=== PATIENT | female | born 1970 | race Caucasian/White ===

== ENCOUNTER 2020-01-19 12:16 | Outpatient (REF) | payer MEDICARE, MEDICAID, SELFPAY | END 2020-01-19 12:17 | disposition home or self-care (01) | LOC: HO.LAB 12:16 | PROVIDERS: Visit Provider Nurse Practitioner Family | DX: Z20.828 Contact with and (suspected) exposure to other viral communicable diseases (principal); R05 Cough | CPT/HCPCS: U0003 ==

== ENCOUNTER 2020-01-19 12:33 | Outpatient (REF) | payer MEDICARE, MEDICAID, SELFPAY ==
--- NOTE | 2020-01-19 12:42 | XR_ITS ---
EXAMINATION: XR CHEST CLINICAL INFORMATION: Cough COMPARISON: Previous chest x-ray most recent August 2018 TECHNIQUE: 2 views of the chest were obtained. FINDINGS: The cardiac and mediastinal contours are normal. The lungs are clear. There is no pleural effusion or pneumothorax. There are mild degenerative changes of the spine. There are osteophytes projecting off the distal clavicle probably related to old trauma. XR/XR chest 2V IMPRESSION: No evidence for acute disease in the chest.
== END 2020-01-19 12:34 | disposition home or self-care (01) ==
LOC: HO.XRAY 12:33
PROVIDERS: PCP Internal Medicine; Visit Provider Nurse Practitioner Family
DX: R05 Cough (principal)
CPT/HCPCS: 71046

== ENCOUNTER 2020-08-22 09:27 | Outpatient (REF) | payer MEDICARE, MEDICAID, SELFPAY | END 2020-08-22 09:28 | disposition home or self-care (01) | LOC: HO.LAB 09:27 | PROVIDERS: Visit Provider Nurse Practitioner Family | DX: Z20.822 Contact with and (suspected) exposure to COVID-19 (principal); J98.8 Other specified respiratory disorders | CPT/HCPCS: U0003; U0005 ==

== ENCOUNTER 2020-08-22 09:27 | Outpatient (REF) | payer MEDICARE, MEDICAID, SELFPAY ==
--- NOTE | ~2020-08-22 | XR_ITS ---
EXAMINATION: XR CHEST CLINICAL INFORMATION: Cough. Asthma COMPARISON: Chest 01/19/2020 TECHNIQUE: 2 views of the chest were obtained. FINDINGS: No significant abnormality is noted involving the heart, lungs, mediastinum, bony thorax or soft tissues. XR/XR chest 2V IMPRESSION: Unremarkable chest exam
== END 2020-08-22 09:28 | disposition home or self-care (01) ==
LOC: HO.HMGCX 09:27
PROVIDERS: PCP Internal Medicine; Visit Provider Nurse Practitioner Family
DX: J45.991 Cough variant asthma (principal)
CPT/HCPCS: 71046

== ENCOUNTER → 2020-11-17 10:05 | Outpatient (BNVA) | payer MEDICARE, MEDICAID, SELFPAY | PROVIDERS: PCP Internal Medicine; Visit Provider Internal Medicine | DX: J45.40 Moderate persistent asthma, uncomplicated (principal); R05 Cough; F17.200 Nicotine dependence, unspecified, uncomplicated | CPT/HCPCS: 99202 ==

== ENCOUNTER → 2021-06-15 09:59 | Outpatient (BNVA) | payer MEDICARE, MEDICAID, SELFPAY | PROVIDERS: PCP Internal Medicine; Referring Provider Internal Medicine; Visit Provider Internal Medicine | DX: I25.10 Atherosclerotic heart disease of native coronary artery without angina pectoris (principal); R07.2 Precordial pain; F17.210 Nicotine dependence, cigarettes, uncomplicated; I25.2 Old myocardial infarction; Z95.5 Presence of coronary angioplasty implant and graft | CPT/HCPCS: 93005; 99212 ==

== ENCOUNTER → 2021-07-11 07:52 | Outpatient (REF) | payer MEDICARE, MEDICAID, SELFPAY ==
--- NOTE | ~2021-07-11 | NM_ITS ---
Lexiscan Myocardial perfusion study Indication: Chest pain, assess for coronary disease and ischemia Technique: The patient was brought in for a Lexiscan perfusion study on 07/11/2021 and was injected 0.4 mg of Lexiscan intravenously. Within a minute of this injection 30 mCi of sestamibi was given intravenously. Images were obtained using the SPECT gamma camera interlaced with the gating device. Images were obtained in supine position. Resting perfusion study was performed on 07/27/2021. Patient was administered 30 mCi of sestamibi intravenously at rest. Images were then obtained in supine position. Total DLP 93mGy-cm. Images were processed with the software and compared side to side in short axis, horizontal long axis and vertical long axis views. Findings: Raw acquisition was reviewed. The stress perfusion study showed diminished tracer uptake along the distal part of inferior wall. There is also adjacent bowel/hepatic radiotracer uptake along the inferior wall. CT attenuation corrected images have globally reduced uptake and hence most likely all technical. The gated study shows normal LV systolic function with calculated LVEF of 59%. LV cavity is normal in size. The gated study shows normal wall thickening and contraction of segments. Resting study shows no significant perfusion defects. Gating at rest reveals normal wall motion with ejection fraction at 64%. The findings are consistent with reversible distal inferior defect but with normal contractility. TN/TN cardiolite stress test Impression: 1. Myocardial perfusion imaging study shows no clear ischemia. Reversible distal inferior defect but with normal contractility as well as adjacent GI tracer uptake, and hence suggestive of artifactual causes. Less likely true ischemia. 2. Gated LVEF is 59% during stress and 64% during rest. 3. Transient ischemic dilatation not present. EKG component of the test reported separately.
--- NOTE | 2021-07-11 07:55 | CA_ITS ---
Acquisition Time: 2021-07-11 08:09:39 Total Exercise Time: 00:02:00 Test Indications: CP Medications: SEE CHART Protocol: LEXISCAN Max HR: 112 BPM 65% of Pred: 172 BPM Max BP: 110/078 mmHG Max Work Load: 1.0 METS Pharmacological stress test with Lexiscan injection, while sitting and kicking her legs, with moderate shortness of breath, no chest discomfort, with isolated PVC, with normotensive response to injection, with nondiagnostic EKG for ischemia. In recovery she reported sob, nausea that was treated with Aminophylline 75mg IVP to reverse Lexiscan with resolution of symptoms. Nuclear images pending. Test reviewed with Dr Dawn. Referred By: Rafy Dawn Overread By: REYNOLD PATTEN
[2021-07-11 09:45] LABS: MANUAL DIFF FLAG NO
[2021-07-11 10:38] LABS: Basophils Absolute Auto 0.1 X10*3/uL (0.0-0.2); Basophils Percent Auto 0.8 % (0-2); Eosinophils Absolute Auto 0.2 X10*3/uL (0.0-0.4); Eosinophils Percent Auto 2.9 % (0-4); Hematocrit 45.1 % (37.0-47.0); Hemoglobin 14.6 g/dl (12.0-16.0); Imm Gran Abs Auto 0.08 X10*3/uL (0.00-0.03); Imm Gran Pct Auto 1.1 % (0.0-0.4); Lymphocytes Absolute Auto 2.3 X10*3/uL (1.2-4.9); Lymphocytes Percent Auto 32.6 % (20-40); Mean Corpuscular HGB Conc 32.4 g/dl (31.0-35.0); Mean Corpuscular Hemoglobin 30.9 pg (27.0-33.0); Mean Corpuscular Volume 95.6 fL (80.0-98.0); Mean Platelet Volume 10.5 fL (9.4-12.3); Monocytes Absolute Auto 0.6 X10*3/uL (0.1-1.2); Monocytes Percent Auto 8.1 % (2-11); Neutrophils Absolute Auto 3.9 x10*3/uL (2.0-8.3); Neutrophils Percent Auto 54.5 % (45-73); Platelet Count 220 X10*3/uL (160-400); Red Blood Count 4.72 X10*6/uL (4.20-5.50); Red Cell Distribution Width 13.3 % (11.0-16.0); White Blood Count 7.2 X10*3/uL (4.8-10.8)
[2021-07-11 11:01] LABS: Alanine Aminotransferase 17 U/L (0-31); Albumin Level 3.9 g/dL (3.5-5.0); Alkaline Phosphatase 60 U/L (39-117); Anion Gap 10 (12-20); Aspartate Amino Transferase 16 U/L (5-31); Bilirubin Direct < 0.2 mg/dL (0.0-0.5); Bilirubin Total 0.4 mg/dL (0.0-1.0); Blood Urea Nitrogen 13 mg/dL (9-16); Calcium 9.3 mg/dL (8.4-10.2); Carbon Dioxide 29 mmol/L (22-29); Chloride 107 mmol/L (96-108); Cholesterol 238 mg/dL; Estimated Glomerular Filt Rate > 60; Glucose Random 94 mg/dL (60-115); HDL Cholesterol 49 mg/dL; LDL Cholesterol Calculated 167 mg/dl; Potassium 4.6 mmol/L (3.3-5.1); Sodium 141 mmol/L (135-145); Total Protein 6.8 g/dL (6.5-8.0); Triglycerides 112 mg/dL
[2021-07-11 11:16] LABS: HBS Num1 2.72 mIU/mL (0-7.99); HBsAGNum1 0.21 S/CO (0.00-0.99); Hepatitis B Core Antibody Nonreactive (Nonreactive); Hepatitis B Surface Antigen Negative (Negative); ~Hepatitis B Surface Antibody NONREACTIVE (Nonreactive)
[2021-07-11 11:24] LABS: Thyroid Stimulating Hormone 1.94 uIU/mL (0.32-4.0)
[2021-07-13 14:40] LABS: HCV RNA PCR Qn 7.14 Log IU/mL (NOT DETECTED)
[2021-07-17 15:47] LABS: FIB-ALT 15 U/L (6-29); FIB-Alpha-2-Macroglobulin 194 mg/dL (106-279); FIB-Apolipoprotein A1 157 mg/dL (101-198); FIB-GGT 11 U/L (3-55); FIB-Haptoglobin 188 mg/dL (43-212); FIB-Total Bilirubin 0.3 mg/dL (0.2-1.2); Liver Fibrosis Score 0.06; Liver Fibrosis Stage F0; Nec Inflam Act Grade A0; Nec Inflam Act Score 0.04
[2021-07-20 05:52] LABS: HCV Genotype LiPA 2
== END ==
LOC: HO.CARD 07:52
PROVIDERS: Physician Assistant; PCP Internal Medicine; Visit Provider Internal Medicine
DX: R07.2 Precordial pain (principal); I25.10 Atherosclerotic heart disease of native coronary artery without angina pectoris; R74.01 Elevation of levels of liver transaminase levels; B19.20 Unspecified viral hepatitis C without hepatic coma; E78.5 Hyperlipidemia, unspecified
CPT/HCPCS: 36415; 78452; 80053; 80061; 81596; 82248; 84443; 85025; 86704; 86706; 87340; 87522; 87902; 93017; A9500; J0280; J2785

== ENCOUNTER → 2021-08-03 07:31 | Outpatient (BNVA) | payer MEDICARE, MEDICAID, SELFPAY | PROVIDERS: PCP Internal Medicine; Visit Provider Physician Assistant | DX: B19.20 Unspecified viral hepatitis C without hepatic coma (principal); J45.41 Moderate persistent asthma with (acute) exacerbation; J20.9 Acute bronchitis, unspecified | CPT/HCPCS: 99202; 99212 ==

== ENCOUNTER → 2021-08-17 07:26 | Outpatient (REF) | payer MEDICARE, MEDICAID, SELFPAY ==
--- NOTE | ~2021-08-17 | XR_ITS ---
EXAMINATION: XR CHEST CLINICAL INFORMATION: Bronchitis. COMPARISON: 08/22/[address] of 05/30/2017. TECHNIQUE: 2 views of the chest were obtained. FINDINGS: On lateral view only about the anterior portions of the T6 and T7 vertebrae, there is a density which may represent superimposition of shadows however a nodule cannot be excluded and CT of the chest may be of help in further evaluation. I do not see a large spur on AP view to correspond to this finding. Heart normal size. No evidence of pulmonary edema. No pneumothorax or pleural effusion. No confluent pneumonitis identified. XR/XR chest 2V IMPRESSION: Question lung density seen only on lateral view for which CT of the chest would be of help in further evaluation. This more likely represents a confluence of shadows.
--- NOTE | 2021-08-17 07:29 | CA_ITS ---
Transthoracic Echocardiogram Patient (Last, First, Middle): Lina Gann, Gender: Female Date of : 1970 Age: 51 Procedure Date: 08/17/2021 Procedure Type: Transthoracic Echocardiogram Location: OP Height: 160.02 cm Weight: 75.75 kg BSA: 1.79 m2 Heart Rate: 76 bpm BP: 95 / 69 mmHg [employer] Top Helper: SARKIS Referring MD: Rafy Dawn MD Forensic Psychologist: Greg Anand MD Symptoms: I25.10 - Atherosclerotic heart disease of [place] coronary... Study Quality: Adequate ECG Rhythm: Frequent ventricular premature beats Conclusions: - 1. Normal LV systolic function with impaired relaxation filling pattern 2. Normal cardiac valvular Dopplers 3. No gross pericardial effusion Findings Left Ventricle Normal left ventricular size, thickness, and systolic function. The visually estimated ejection fraction is between 55-60%. Spectral Doppler is indicative of an impaired relaxation filling pattern. E/E prime ratio is between 8 and 15 consistent with indeterminate filling pressures. Peak GLS is -18.5%, within normal limits. Right Ventricle Normal right ventricular cavity size and systolic function. Atria The left atrium is likely dilated. There is lipomatous hypertrophy of the interatrial septum. There is no evidence of interatrial shunt. The right atrium is normal in size. Aortic Valve Normal aortic valve structure and function. There is no aortic valve stenosis. There is no aortic valve regurgitation. Mitral Valve There is mild anterior and posterior mitral leaflet thickening. There is mild mitral annular calcification. There is trace mitral valve regurgitation. There is no mitral valve stenosis. Pulmonic Valve The pulmonic valve was not well visualized. Tricuspid Valve The tricuspid valve was not well visualized. Tricuspid regurgitation envelope is inadequate for calculation of right ventricular systolic pressure. Great Vessels All visible segments of the aorta are normal in size. The pulmonary artery was not well visualized. Venous The inferior vena cava is normal in size and collapses greater than 50% with inspiration. Pericardium/Pleural There is no evidence of pericardial effusion. Prior Study Comparison No significant change compared to prior study dated: 02/23/2014. Measurements 2D Linear Measurements IVSd: 0.81 0.6-0.9/0.6-1.0 cm LVIDd: 4.58 3.9-5.3/4.2-5.9 cm LVIDd Index: 2.56 2.4-3.2/2.2-3.1 cm/m2 LVIDs: 3.32 2.0-3.6 cm LVPWd: 0.64 0.7-1.1 cm LA Diam: 3.50 2.7-3.8/3.0-4.0 cm LAIDs Index: 1.96 1.5-2.3 cm/m2 LV Mass: 128.34 67-162/88-224 g LV Mass Index: 71.70 43-95/49-115 g/m2 LVOT Diam: 2.00 3.0+(-)1.3 cm 2D Systolic Function EF 4C: 50.60 >55% EF 2C: 51.80 >55% Mitral Valve MV Pk E: 0.74 MV PK A: 0.89 MV Decel Time: 131.00 E/A: 0.80 E'Lateral: 10.70 E'Medial: 7.18 E/E' Med: 10.30 E/E' Lat: 6.90 PHT: 38.00 MVA PHT: 5.79 Decel [place]: 5.64 Aortic Valve AoV Pk Seth: 1.20 AoV Mn Seth: 0.86 AoV VTI: 0.25 AoV Pk Grad: 6.00 Aov Mn Grad: 3.00 BILLY Cont.VTI: 2.49 LVOT LVOT Pk Seth: 0.86 LVOT Mn Seth: 0.67 LVOT VTI: 0.20 LVOT Pk Grad: 3.00 LVOT Mn Grad: 2.00 LVOT Diam: 2.00 LVOT Area: 3.14 Diastolic Function MV Pk E: 0.74 MV Pk A: 0.89 E/A: 0.80 E'Medial: 7.18 E/E' Med: 10.30 E' Laterial: 10.70 E/E' Lat: 6.90 Right Ventricle TAPSE (mm): 22.60 TVS' Seth: 9.60 Tricuspid Valve RA Press: 3.00 Great Vessels Aorta Sinus of Valsalva: 2.80 2.0-3.5 cm Ao Asc: 2.90 2.1-3.4 cm Pulmonary Veins Pulm Vein S/D 1.20 Pulmonary Valve PV Pk Seth: 0.83 Peak PV Grad: 3.00 Updated in Other Vendor System with Status of Final Greg Anand MD electronically signed on 08/17/2021 12:36:01 PM with status of Final
== END ==
LOC: HO.CARD 07:26
PROVIDERS: Absent Provider Internal Medicine; PCP Internal Medicine; Visit Provider Internal Medicine
DX: R07.2 Precordial pain (principal); I25.10 Atherosclerotic heart disease of native coronary artery without angina pectoris; F17.200 Nicotine dependence, unspecified, uncomplicated; J40 Bronchitis, not specified as acute or chronic; J45.41 Moderate persistent asthma with (acute) exacerbation
CPT/HCPCS: 71046; 93306; 93356; 99212

== ENCOUNTER → 2021-08-22 13:10 | Outpatient (BNVA) | payer MEDICARE, MEDICAID, SELFPAY | PROVIDERS: PCP Internal Medicine; Referring Provider Internal Medicine; Visit Provider Internal Medicine | DX: I25.10 Atherosclerotic heart disease of native coronary artery without angina pectoris (principal); F17.210 Nicotine dependence, cigarettes, uncomplicated | CPT/HCPCS: 99212 ==

== ENCOUNTER 2021-09-08 11:12 | Outpatient (REF) | payer MEDICARE, MEDICAID, SELFPAY ==
--- NOTE | ~2021-09-08 | US_ITS ---
EXAMINATION: US COMPLETE ABDOMEN WITH LIVER ELASTOGRAPHY CLINICAL INFORMATION: Hepatitis C COMPARISON: 05/07/2019 TECHNIQUE: Real-time imaging of the abdominal viscera. Noninvasive ultrasound liver fibrosis assessment is performed using Andrzej ElastPQ point quantification shear wave elastography (2D-SWE) with a C5-2 MHz transducer. Multiple elastography samples are obtained. FINDINGS: PANCREAS: Normal. The visualized pancreatic head and body are normal in appearance. The remainder of the pancreas is obscured from visualization by the overlying bowel gas. ABDOMINAL AORTA: The proximal, middle, and distal aortic segments are normal in caliber. INFERIOR VENA CAVA: Visualized portions are normal. LIVER: Normal. The liver demonstrates normal size, contour and echogenicity. No focal lesion or intrahepatic biliary duct dilatation. The right lobe measures 16.4 cm in length. The left lobe measures 10.1 cm in length. Portal flow is hepatopedal Shear wave liver elastography median stiffness is 1.34 m/s (reference: normal median stiffness is 1.3 m/s or less). IQR/median stiffness to assess sampling precision is 0.14 (reference: good quality data set is IQR/median stiffness of 0.15 or less). GALLBLADDER: Normal. The gallbladder is physiologically distended without evidence of stones, sludge, polyps, wall thickening or pericholecystic fluid. COMMON BILE DUCT: Normal in caliber measuring 0.32 cm in diameter. RIGHT KIDNEY: Normal. No hydronephrosis. No renal calculi or focal parenchymal lesions. The kidney measures 10.8 cm in maximum dimension. LEFT KIDNEY: Normal. No hydronephrosis. No renal calculi or focal parenchymal lesions. The kidney measures 11.3 cm in maximum dimension. SPLEEN: Normal. The spleen measures 10.8 cm in maximum dimension. FREE FLUID: None. US/US abdomen comp w elastography IMPRESSION: 1. No hepatic mass or anatomic evidence of cirrhosis 2. Liver elastography: In the absence of other known clinical signs, measurements rule out compensated advanced chronic liver disease. If there are known clinical signs, further testing may be needed for confirmation. REFERENCE: Society of Radiologists in Ultrasound Liver Stiffness Thresholds (2020): LIVER STIFFNESS THRESHOLDS: *Liver Stiffness equal or less than 1.3 m/s: High probability of being normal. *Liver Stiffness less than 1.7 m/s: In the absence of other known clinical signs, rules out compensated advanced chronic liver disease. *Liver Stiffness 1.7-2.1 m/s: Suggestive of compensated advanced chronic liver disease but need further test for confirmation. *Liver Stiffness over 2.1 m/s: Rules in compensated advanced chronic liver disease. *Liver Stiffness over 2.4 m/s: Suggestive of clinically significant portal hypertension. QUALITY OF DATA SET: *IQR/Median value equal or less than 0.15 implies a quality data set. *IQR/Median value over 0.15 implies a poor quality data set. SIGNIFICANT CHANGE FROM PRIOR EXAM: Significant change if liver stiffness measurement is 10% or greater from prior exam. OTHER CONSIDERATIONS: The stage of liver fibrosis may be overestimated in the setting of acute hepatitis, liver inflammation, elevated liver function tests, hepatic vascular congestion, obstructive cholestasis, non-fasting state, and infiltrative diseases such as amyloidosis and lymphoma. In some patients with NAFLD, the liver stiffness thresholds for compensated advanced chronic liver disease may be lower. In causes other than viral hepatitis and NAFLD, liver stiffness thresholds are not well established.
== END 2021-09-08 11:13 | disposition home or self-care (01) ==
LOC: HO.US 11:12
PROVIDERS: PCP Internal Medicine; Visit Provider Physician Assistant
DX: B19.20 Unspecified viral hepatitis C without hepatic coma (principal)
CPT/HCPCS: 76705; 76981

== ENCOUNTER → 2021-09-14 08:53 | Outpatient (BNVA) | payer MEDICARE, MEDICAID, SELFPAY | PROVIDERS: PCP Internal Medicine; Visit Provider Physician Assistant | DX: B19.20 Unspecified viral hepatitis C without hepatic coma (principal); Z23 Encounter for immunization | CPT/HCPCS: 90471; 90746; 99212; Q3014 ==

== ENCOUNTER → 2021-10-16 13:21 | Outpatient (BNVA) | payer MEDICARE, MEDICAID, SELFPAY | PROVIDERS: PCP Internal Medicine; Visit Provider Physician Assistant | DX: B19.20 Unspecified viral hepatitis C without hepatic coma (principal); Z23 Encounter for immunization | CPT/HCPCS: 90471; 90746 ==

== ENCOUNTER → 2021-10-17 08:41 | Outpatient (BNVA) | payer MEDICARE, MEDICAID, SELFPAY | PROVIDERS: PCP Internal Medicine; Visit Provider Physician Assistant | DX: B19.20 Unspecified viral hepatitis C without hepatic coma (principal); J45.41 Moderate persistent asthma with (acute) exacerbation; F17.200 Nicotine dependence, unspecified, uncomplicated; I25.10 Atherosclerotic heart disease of native coronary artery without angina pectoris | CPT/HCPCS: Q3014 ==

== ENCOUNTER 2021-11-13 11:12 | Outpatient (REF) | payer MEDICARE, MEDICAID, SELFPAY ==
--- NOTE | ~2021-11-13 | XR_ITS ---
EXAMINATION: XR CHEST CLINICAL INFORMATION: Cough. COMPARISON: August 17, 2021. TECHNIQUE: 2 views of the chest were obtained. FINDINGS: No significant abnormality is noted involving the heart, lungs, mediastinum, bony thorax or soft tissues. XR/XR chest 2V IMPRESSION: Unremarkable examination.
[2021-11-13 11:50] LABS: Binax Internal Control QC Valid; Binax Now Covid-19 Ag Negative (Negative)
== END 2021-11-13 11:13 | disposition home or self-care (01) ==
LOC: HO.HMGCX 11:12
PROVIDERS: PCP Internal Medicine; Visit Provider Physician Assistant
DX: Z20.822 Contact with and (suspected) exposure to COVID-19 (principal); J22 Unspecified acute lower respiratory infection; R05.9 Cough, unspecified
CPT/HCPCS: 71046; 87811; C9803

== ENCOUNTER 2021-12-06 10:32 | Outpatient (REF) | payer MEDICARE, MEDICAID, SELFPAY ==
[2021-12-06 14:15] LABS: MANUAL DIFF FLAG NO
[2021-12-06 14:21] LABS: Basophils Absolute Auto 0.1 X10*3/uL (0.0-0.2); Basophils Percent Auto 1.1 % (0-2); Eosinophils Absolute Auto 0.1 X10*3/uL (0.0-0.4); Eosinophils Percent Auto 0.8 % (0-4); Hematocrit 44.9 % (37.0-47.0); Hemoglobin 14.8 g/dl (12.0-16.0); Imm Gran Abs Auto 0.03 X10*3/uL (0.00-0.03); Imm Gran Pct Auto 0.4 % (0.0-0.4); Lymphocytes Absolute Auto 2.1 X10*3/uL (1.2-4.9); Lymphocytes Percent Auto 29.3 % (20-40); Mean Corpuscular Hemoglobin 30.8 pg (27.0-33.0); Mean Corpuscular Volume 93.3 fL (80.0-98.0); Mean Platelet Volume 10.6 fL (9.4-12.3); Monocytes Absolute Auto 0.5 X10*3/uL (0.1-1.2); Monocytes Percent Auto 6.6 % (2-11); Neutrophils Absolute Auto 4.5 x10*3/uL (2.0-8.3); Neutrophils Percent Auto 61.8 % (45-73); Platelet Count 218 X10*3/uL (160-400); Red Blood Count 4.81 X10*6/uL (4.20-5.50); White Blood Count 7.3 X10*3/uL (4.8-10.8)
[2021-12-06 14:56] LABS: Alanine Aminotransferase 14 U/L (0-31); Albumin Level 4.3 g/dL (3.5-5.0); Alkaline Phosphatase 78 U/L (39-117); Anion Gap 15 (12-20); Aspartate Amino Transferase 17 U/L (5-31); Bilirubin Direct 0.2 mg/dL (0.0-0.5); Bilirubin Total 0.4 mg/dL (0.0-1.0); Blood Urea Nitrogen 12 mg/dL (9-16); Calcium 9.2 mg/dL (8.4-10.2); Carbon Dioxide 25 mmol/L (22-29); Chloride 105 mmol/L (96-108); Cholesterol 177 mg/dL; Estimated Glomerular Filt Rate > 60; Glucose Random 109 mg/dL (60-115); HDL Cholesterol 44 mg/dL; LDL Cholesterol Calculated 115 mg/dl; Potassium 4.5 mmol/L (3.3-5.1); Sodium 140 mmol/L (135-145); Total Protein 7.5 g/dL (6.5-8.0); Triglycerides 90 mg/dL
[2021-12-08 18:26] LABS: HCV Log PCR <1.18 NOT DETECTED Log IU/mL (NOT DETECTED); HepC Viral Load <15 NOT DETECTED IU/mL (NOT DETECTED)
== END 2021-12-06 10:33 | disposition home or self-care (01) ==
LOC: HO.HMGCLDS 10:32
PROVIDERS: Absent Provider Physician Assistant; PCP Internal Medicine; Visit Provider Internal Medicine
DX: B19.20 Unspecified viral hepatitis C without hepatic coma (principal); I25.10 Atherosclerotic heart disease of native coronary artery without angina pectoris; E78.5 Hyperlipidemia, unspecified
CPT/HCPCS: 36415; 80048; 80061; 80076; 85025; 87522

== ENCOUNTER 2021-12-09 08:58 | Outpatient (REF) | payer MEDICARE, MEDICAID, SELFPAY ==
--- NOTE | ~2021-12-09 | XR_ITS ---
EXAMINATION: XR SHOULDER, LEFT CLINICAL INFORMATION: Pain COMPARISON: Previous x-ray July 2012 TECHNIQUE: AP external rotation, Grashey, scapular Y, and axillary views of the left shoulder. FINDINGS: The bones and soft tissues are normal. No fracture. Glenohumeral and acromioclavicular alignment is anatomic with normal joint space. No abnormal soft tissue calcifications. XR/XR shoulder LT min 2V IMPRESSION: Normal left shoulder.
== END 2021-12-09 08:59 | disposition home or self-care (01) ==
LOC: HO.XRAY 08:58
PROVIDERS: PCP Internal Medicine; Visit Provider Internal Medicine
DX: M25.512 Pain in left shoulder (principal); Z91.81 History of falling
CPT/HCPCS: 73030

== ENCOUNTER → 2021-12-11 10:03 | Outpatient (BNVA) | payer MEDICARE, MEDICAID, SELFPAY | PROVIDERS: PCP Internal Medicine; Visit Provider Physician Assistant | DX: Z13.89 Encounter for screening for other disorder (principal) | CPT/HCPCS: Q3014 ==

== ENCOUNTER 2021-12-19 10:49 | Outpatient (REF) | payer MEDICARE, MEDICAID, SELFPAY ==
--- NOTE | ~2021-12-19 | CT_ITS ---
EXAMINATION: CT HEAD WITHOUT CONTRAST CLINICAL INFORMATION: Headaches. COMPARISON: None. TECHNIQUE: Contiguous axial imaging was performed from the skullbase to vertex without intravenous administration of contrast. This CT examination was performed using dose optimization techniques as appropriate, variously including the following: *Automated exposure control *Adjustment of mA and/or kV according to patient size (this includes techniques or standardized protocols for targeted exams where dose is matched to indication/reason for exam; i.e. extremities or head) *Use of iterative reconstruction technique DLP: 740 mGy-cm. FINDINGS: There is no evidence of acute intracranial hemorrhage or territorial infarction. No abnormal mass effect or midline shift is seen. [place] to white matter differentiation is well preserved. No extra-axial fluid collections are identified. The ventricles are normal in size. There is no abnormal attenuation within the brain parenchyma. The osseous structures and soft tissues are normal. The mastoid air cells and visualized portions of the paranasal sinuses are well aerated. CT/CT head/brain wo IV con IMPRESSION: No acute intracranial pathology.
== END 2021-12-19 10:50 | disposition home or self-care (01) ==
LOC: HO.CT 10:49
PROVIDERS: PCP Internal Medicine; Visit Provider Internal Medicine
DX: R51.9 Headache, unspecified (principal); S09.90XA Unspecified injury of head, initial encounter; Z91.81 History of falling
CPT/HCPCS: 70450

== ENCOUNTER 2022-01-03 07:10 | Outpatient (REF) | payer MEDICARE, MEDICAID, SELFPAY ==
[2022-01-03 07:19] LABS: MANUAL DIFF FLAG NO
[2022-01-03 07:29] LABS: Basophils Absolute Auto 0.1 X10*3/uL (0.0-0.2); Eosinophils Absolute Auto 0.3 X10*3/uL (0.0-0.4); Eosinophils Percent Auto 4.2 % (0-4); Hematocrit 44.2 % (37.0-47.0); Hemoglobin 14.3 g/dl (12.0-16.0); Imm Gran Abs Auto 0.02 X10*3/uL (0.00-0.03); Imm Gran Pct Auto 0.3 % (0.0-0.4); Lymphocytes Absolute Auto 3.1 X10*3/uL (1.2-4.9); Lymphocytes Percent Auto 41.2 % (20-40); Mean Corpuscular HGB Conc 32.4 g/dl (31.0-35.0); Mean Corpuscular Hemoglobin 30.6 pg (27.0-33.0); Mean Corpuscular Volume 94.6 fL (80.0-98.0); Mean Platelet Volume 10.4 fL (9.4-12.3); Monocytes Absolute Auto 0.8 X10*3/uL (0.1-1.2); Monocytes Percent Auto 10.9 % (2-11); Neutrophils Absolute Auto 3.2 x10*3/uL (2.0-8.3); Neutrophils Percent Auto 42.4 % (45-73); Platelet Count 199 X10*3/uL (160-400); Red Blood Count 4.67 X10*6/uL (4.20-5.50); Red Cell Distribution Width 13.2 % (11.0-16.0); White Blood Count 7.6 X10*3/uL (4.8-10.8)
[2022-01-03 07:48] LABS: Anion Gap 14 (12-20); Blood Urea Nitrogen 11 mg/dL (9-16); Calcium 9.1 mg/dL (8.4-10.2); Carbon Dioxide 26 mmol/L (22-29); Chloride 104 mmol/L (96-108); Estimated Glomerular Filt Rate > 60; Glucose Random 83 mg/dL (60-115); Potassium 4.4 mmol/L (3.3-5.1); Sodium 140 mmol/L (135-145)
[2022-01-05 17:47] LABS: HCV Log PCR <1.18 NOT DETECTED Log IU/mL (NOT DETECTED); HepC Viral Load <15 NOT DETECTED IU/mL (NOT DETECTED)
== END 2022-01-03 07:11 | disposition home or self-care (01) ==
LOC: HO.LAB 07:10
PROVIDERS: PCP Internal Medicine; Visit Provider Physician Assistant
DX: B19.20 Unspecified viral hepatitis C without hepatic coma (principal)
CPT/HCPCS: 36415; 80048; 85025; 87522

== ENCOUNTER → 2022-01-08 09:52 | Outpatient (BNVA) | payer MEDICARE, MEDICAID, SELFPAY | PROVIDERS: PCP Internal Medicine; Visit Provider Physician Assistant | DX: B18.2 Chronic viral hepatitis C (principal); Z86.010 Personal history of colon polyps | CPT/HCPCS: 99212 ==

== ENCOUNTER → 2022-01-23 15:04 | Outpatient (BNVA) | payer MEDICARE, MEDICAID, SELFPAY | PROVIDERS: PCP Internal Medicine; Visit Provider Internal Medicine | DX: J44.9 Chronic obstructive pulmonary disease, unspecified (principal); F17.210 Nicotine dependence, cigarettes, uncomplicated | CPT/HCPCS: 99212 ==

== ENCOUNTER 2022-03-26 12:28 | Outpatient (REF) | payer MEDICARE, MEDICAID, SELFPAY ==
[2022-03-26 12:46] LABS: MANUAL DIFF FLAG NO
[2022-03-26 13:00] LABS: Basophils Absolute Auto 0.1 X10*3/uL (0.0-0.2); Basophils Percent Auto 0.8 % (0-2); Eosinophils Absolute Auto 0.1 X10*3/uL (0.0-0.4); Eosinophils Percent Auto 1.5 % (0-4); Hematocrit 43.1 % (37.0-47.0); Hemoglobin 14.5 g/dl (12.0-16.0); Imm Gran Abs Auto 0.02 X10*3/uL (0.00-0.03); Imm Gran Pct Auto 0.2 % (0.0-0.4); Lymphocytes Absolute Auto 3.4 X10*3/uL (1.2-4.9); Lymphocytes Percent Auto 35.6 % (20-40); Mean Corpuscular HGB Conc 33.6 g/dl (31.0-35.0); Mean Corpuscular Hemoglobin 30.9 pg (27.0-33.0); Mean Corpuscular Volume 91.9 fL (80.0-98.0); Mean Platelet Volume 9.9 fL (9.4-12.3); Monocytes Absolute Auto 0.6 X10*3/uL (0.1-1.2); Monocytes Percent Auto 6.3 % (2-11); Neutrophils Absolute Auto 5.3 x10*3/uL (2.0-8.3); Neutrophils Percent Auto 55.6 % (45-73); Platelet Count 237 X10*3/uL (160-400); Red Blood Count 4.69 X10*6/uL (4.20-5.50); Red Cell Distribution Width 13.3 % (11.0-16.0); White Blood Count 9.5 X10*3/uL (4.8-10.8)
[2022-03-26 13:21] LABS: Alanine Aminotransferase 17 U/L (0-31); Albumin Level 4.4 g/dL (3.5-5.0); Alkaline Phosphatase 62 U/L (39-117); Anion Gap 14 (12-20); Aspartate Amino Transferase 16 U/L (5-31); Bilirubin Total 0.5 mg/dL (0.0-1.0); Blood Urea Nitrogen 12 mg/dL (9-16); Calcium 9.3 mg/dL (8.4-10.2); Carbon Dioxide 28 mmol/L (22-29); Chloride 104 mmol/L (96-108); Cholesterol 168 mg/dL; Estimated Glomerular Filt Rate > 60; Glucose Fasting 89 mg/dL (60-99); Glucose Random 89 mg/dL (60-115); HDL Cholesterol 45 mg/dL; LDL Cholesterol Calculated 109 mg/dl; Potassium 4.4 mmol/L (3.3-5.1); Sodium 142 mmol/L (135-145); Total Protein 7.1 g/dL (6.5-8.0); Triglycerides 74 mg/dL
[2022-03-27 20:58] LABS: HCV RNA PCR Qn <1.18 NOT DETECTED Log IU/mL (NOT DETECTED); HCV RNA PCR Qn <15 NOT DETECTED IU/mL (NOT DETECTED)
== END 2022-03-26 12:29 | disposition home or self-care (01) ==
LOC: HO.LAB 12:28
PROVIDERS: PCP Internal Medicine; Visit Provider Physician Assistant
DX: J44.9 Chronic obstructive pulmonary disease, unspecified (principal); B19.20 Unspecified viral hepatitis C without hepatic coma; F17.210 Nicotine dependence, cigarettes, uncomplicated; R74.01 Elevation of levels of liver transaminase levels; E78.00 Pure hypercholesterolemia, unspecified; Z79.899 Other long term (current) drug therapy
CPT/HCPCS: 36415; 80048; 80053; 80061; 85025; 87522; 87902; 99212

== ENCOUNTER → 2022-04-02 10:06 | Outpatient (BNVA) | payer MEDICARE, MEDICAID, SELFPAY | PROVIDERS: PCP Internal Medicine; Referring Provider Internal Medicine; Visit Provider Physician Assistant | DX: B19.20 Unspecified viral hepatitis C without hepatic coma (principal); Z86.010 Personal history of colon polyps | CPT/HCPCS: 99212 ==

== ENCOUNTER → 2022-05-30 08:32 | Outpatient (BNVA) | payer MEDICARE, MEDICAID, SELFPAY | PROVIDERS: PCP Internal Medicine; Visit Provider Physician Assistant | DX: Z23 Encounter for immunization (principal) | CPT/HCPCS: 90471; 90746; 99211 ==

== ENCOUNTER → 2022-07-31 13:18 | Outpatient (BNVA) | payer MEDICARE, MEDICAID, SELFPAY | PROVIDERS: PCP Internal Medicine; Visit Provider Orthopaedic Surgery | DX: M18.12 Unilateral primary osteoarthritis of first carpometacarpal joint, left hand (principal) | CPT/HCPCS: 20600; 99202; J1020 ==

== ENCOUNTER 2022-10-05 16:39 | Outpatient (AMB) | payer MEDICARE, MEDICAID, SELFPAY ==
[2022-10-05 16:42] VITALS: BP 120/78; PULSE 86; O2SAT 96; BMI 29.2
--- NOTE | 2022-10-05 16:42 | A.OFFPC_ITS ---
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 Accompanied by: Self / Same As Patient Allergies erythromycin base Allergy (Unknown, Verified 10/07/22 05:19) Nausea and Vomiting, Stomach Upset isosorbide Allergy (Unknown, Verified 10/07/22 05:19) Headaches, stomach upset Medication List - Last Reconciled 10/07/22 by Nathan Lang MD aspirin (Adult Low Dose Aspirin) 81 mg PO DAILY atorvastatin 80 mg PO BEDTIME 90 days clonazepam 1 mg PO BID cyclobenzaprine 10 mg PO TID PRN 10 days fluoxetine 40 mg PO DAILY levalbuterol tartrate 45 mcg/actuation 1 puff inhalation Q4-6H PRN 30 days lurasidone (Latuda) 60 mg PO BEDTIME meloxicam 15 mg PO DAILY PRN 30 days nitroglycerin 0.4 mg sublingual Q5M ondansetron HCl 4 mg PO Q8H PRN 10 days pantoprazole 40 mg PO DAILY 30 days Symbicort 160-4.5 mcg/actuation (budesonide-formoterol) 2 puffs PO BID NS valacyclovir 2,000 mg (2 x 1 gram) PO BID 1 day varenicline 1 mg PO BID 28 days varenicline 0.5 mg PO BID 3 days varenicline (Chantix Continuing Month Box) 1 mg PO BID Tobacco use date assessed: 10/05/22 Dental Screening Dental Screen Date: 10/05/22 Did you have a dental visit in the last 12 months?: Yes Did you have a dental problem in the last 6 months where you did not have access to dental care?: No Was dental information given to patient?: Patient has dentist HPI 4 month f/u HPI Details Patient comes in today for her follow up visit States that she continues to experience recurrent nausea and vomiting States that she tried to get in to see GI for further evaluation of her abdominal symptoms but could not get in until a couple of weeks from now - is scheduled to be seen by GI on 10/22/2022 Was recently called in a prescription for the oral disintegrating formulation of Ondansetron, which she states she cannot tolerate - states that the sensation of the tablet on her tongue tends to trigger her nausea and make her throw up immediately Would like to have a prescription for her previous regular formulation of On dansetron and sent in to her pharmacy States that due to her recurrent nausea and vomiting, she has not really been taking any of her other medications as she tends to throw them all up as soon as she takes them Is hoping that going back on her Ondansetron will help her be able to tolerate and keep her medications down better She denies any headaches or dizziness Denies any chest pains, no increased shortness of breath but she continues to experience or nausea chest congestion and recurrent coughing Add that she is also experiencing frequent epigastric pain and discomfort in addition to her recurrent nausea and vomiting No change in bowel habits noted and states that she has not noticed any blood in her stool lately Also needs a couple of her Rx refilled PFSH Medical History Anxiety Asthma Asthma-COPD overlap syndrome Bipolar affective disorder, currently depressed, moderate Fibromyalgia Lumbar degenerative disc disease Obesity (BMI 30-39.9) Overweight (BMI 25.0-29.9) Pure hypercholesterolemia Smoker Surgical History History of cardiac catheterization Family History Mother Liver cancer Father No problems noted. Other Mental health problem Substance abuse Social History Housing: Apartment Alcohol intake: former Patient Tobacco Use Status: Current everyday Tobacco user Cigarettes Per Day: 2 e-Cigarette/Vaping Use: Never Used Second Hand Smoke Exposure: Yes service: No Current occupational status: employed Cognitive needs: No Hearing needs: No Vision needs: No Questionnaire PHQ-9 Over the last 2 weeks, how often have you been bothered by any of the following problems? 1. Little interest or pleasure in doing things: several days 2. Feeling down, depressed, or hopeless: several days 3. Trouble falling or staying asleep, or sleeping too much: several days 4. Feeling tired or having little energy: several days 5. Poor appetite or overeating: several days 6. Feeling bad about yourself - or that you are a failure or have let yourself or your family down: not at all 7. Trouble concentrating on things, such as reading the newspaper or watching television: not at all 8. Moving or speaking so slowly that other people could have noticed. Or the opposite - being so fidgety or restless that you have been moving around a lot more than usual: not at all 9. Thoughts that you would be better off or of hurting yourself in some way: not at all Total score: 5 Depression Screening Interpretation: Positive Depression Screening Follow-up: Existing condition and In treatment 74694 - PHQ-9 Billing: Yes Source: Developed by Drs. Sarkis Peterson, Leidy Padilla, Ayo White and colleagues, with an educational flip from [employer]. Thrive Questionnaire Date Thrive assessed: 10/05/22 I am a: Patient What is your living situation today?: I have a steady place to live Within the past 12 months, did the food you bought not last and you didn't have the money to get more?: Never true Within the past 12 months, did you worry whether your food would run out before you got money to buy more?: Never true Do you have trouble paying for medicines?: No Do you have trouble getting transportation to medical appointments?: No Do you have trouble paying your heating and electricity bill?: No Do you have trouble taking care of your child, family member or friend?: No Do you have trouble with day-to-day activities such as bathing, preparing meals, shopping, managing finances, etc.?: No Are you currently unemployed and looking for a job?: No Are you interested in more education?: No Please select the resources that you would like help with: None Currently or been in a relationship where the following occur: no concerns reported AUDIT C Alcohol Use Questionnaire (AUDIT-C) 1. How often do you have a drink containing alcohol?: Never 3. How often do you have six or more drinks on one occasion?: Never Total Score: 0 Score Reviewed/Action Taken: Yes JUAN-7 AMB Questionnaire JUAN-7 Date JUAN - 7 assessed: 10/05/22 Feeling nervous, anxious, or on edge: 1 = Several days Not being able to stop or control worryin = Several days Worrying too much about different things: 1 = Several days Trouble relaxin = Several days Being so restless that it is hard to sit still: 1 = Several days Becoming easily annoyed or irritable: 0 = Not at all Feeling afraid as if something awful might happen: 0 = Not at all Total JUAN-7 score (0-4 normal; 5-9 mild; 10-14 moderate; 15-21 severe): 5 Source: Developed by Drs. Sarkis Peterson, Leidy Padilla, Ayo White and colleagues, with an educational flip from [employer]. Review of Systems Const Reports fatigue, Denies fever(s) and Denies headache(s) ENT Denies dysphagia, Denies dizziness, Denies otalgia, Denies headache(s), Reports neck pain (especially over the left side), Denies odynophagia and Denies sore throat Card Denies chest pain, Denies palpitations and Denies dyspnea Resp Reports chest congestion (on and off), Reports cough (recurrent - mostly due to her smoking), Denies dyspnea and Denies wheezing GI Reports abdominal pain (epigastric, on and off), Denies hematochezia, Denies constipation, Denies dysphagia, Denies heartburn, Denies diarrhea, Reports nausea (frequent), Denies odynophagia and Reports vomiting (on and off) Denies difficulty voiding, Denies nocturia and Denies dysuria Musc Reports back pain, Reports arthralgias (left shoulder; increased pain of both thumbs lately) and Reports neck pain (especially over the left side) Neuro Denies dizziness and Denies headache(s) Psych Reports anxiety and Reports depression Endo Reports fatigue and Denies palpitations Aller/Immun Denies wheezing Physical exam (Primary Care) Vital Signs: Last Vital Signs Pulse 86 10/05/22 16:42 BP 120/78 10/05/22 16:42 Pulse Ox 96 10/05/22 16:42 Oxygen Delivery Method Room Air 10/05/22 16:42 BMI result Body Mass Index 29.2 Tobacco/Smoking Status: Tobacco use Status Tobacco use date assessed 10/05/22 10/05/22 16:46 Patient Tobacco Use Status Current everyday Tobacco 10/05/22 16:46 e-Cigarette/Vaping Use Never Used 10/05/22 16:46 PHQ-9: PHQ-9 Score PHQ-9: Total score 5 10/07/22 05:21 Depression Screening Interpretation: Positive Depression Screening Follow-up: Existing condition and In treatment Thrive Assessment: Date of Thrive Assessment Date Thrive assessed 10/05/22 10/05/22 16:46 Currently or been in a relationship where the following occur: no concerns reported Assessment and Plan Assessment & Plan (1) Nausea and vomiting: Code(s): R11.2 - Nausea with vomiting, unspecified Qualifiers: Vomiting type: unspecified Qualified Code(s): R11.2 - Nausea with vomiting, unspecified Plan: Advised patient that her recurrent nausea/vomiting is likely multifactorial but suspect that she may also have some degree of gastritis She should be on Pantoprazole 40 mg QD but she has reportedly not been able to keep any of her medications down for a few weeks now as she reportedly tends to throw up all of her meds as soon as she takes them - she tends to take ALL of her meds at the same time at night and have advised her that this may also be a reason that she is not able to tolerate her Rx and that taking them separately a few at a time may allow her to tolerate her Rx better Per her request, will start her for now on the regular formulation of Ondansetron 4 mg every 8 hours as needed - have instructed patient to try taking this alone with sips of water and wait at least 20-30 minutes before taking any of her other medications and this may allow her to keep her medications down and not throw them up immediately She is also scheduled to see GI in a couple of weeks on 10/22/2022 for further evaluation and management (2) Asthma-COPD overlap syndrome: Comment: Patient does have symptoms of cough wheezing and shortness of breath. Clinically I suspect that she has combination of bronchial asthma and COPD. She has not been able to go for pulmonary function test. TX : Instead of Advair she was provided Symbicort 160-4.52 puffs b.i.d. She was using only 2 puffs in the morning. I have advised her to go back to 2 puffs b.i.d.. And continue to use levalbuterol-45 2 puffs Q 6 hours p.r.n.. Will recheck her in 3 months. Code(s): J44.9 - Chronic obstructive pulmonary disease, unspecified Plan: Continue Symbicort 160-4.5 mcg 2 inhalations BID - patient often reportedly only uses this once a day in AM Continue Levalbuterol inhaler 2 inhalations Q 6 hours PRN Reminded again that quitting smoking can help a lot with her respiratory sympt oms Follow up with pulmonary as scheduled (3) Arthritis of carpometacarpal (CMC) joint of left thumb: Code(s): M18.12 - Unilateral primary osteoarthritis of first carpometacarpal joint, left hand Plan: She is scheduled for a cortisone injection into her thumb joint by orthopedics in a couple of weeks Follow-up with orthopedics as scheduled (4) Lumbar degenerative disc disease: Code(s): M51.36 - Other intervertebral disc degeneration, lumbar region Plan: Lumbar spine MRI done back in 2017 revealed multilevel facet arthritis and disc degeneration Reinforced activity and weight lifting restrictions Continue Cyclobenzaprine 10 mg TID PRN Follow up with [facility] as scheduled (5) Atherosclerotic cardiovascular disease: Comment: S/P stenting (MUKESH) of LAD in April 2012 Code(s): I25.10 - Atherosclerotic heart disease of [place] coronary artery without angina pectoris Plan: Continue Aspirin 81 mg QD - will need lifelong antiplatelet Tx with ASA Continue NTG 0.4 mg SL PRN for chest pains Reinforced low cholesterol diet Follow up with cardiology as scheduled (6) Pure hypercholesterolemia: Code(s): E78.00 - Pure hypercholesterolemia, unspecified Plan: Reinforced low cholesterol diet Has not had any follow-up labs done to recheck her cholesterol levels in a while now - were within acceptable range when they were last checked back in February 2022 Continue Atorvastatin 80 mg QD Will recheck her labs in 4 months for follow-up (7) Hepatitis C: Code(s): B19.20 - Unspecified viral hepatitis C without hepatic coma Qualifiers: Viral hepatitis chronicity: chronic Hepatic coma status: without hepatic coma Qualified Code(s): B18.2 - Chronic viral hepatitis C Plan: S/P treatment with Mavyret 100-40 mg 3 tablets QD Her hepatitis C viral load came back negative /undetectable when last checked last year (2021) Follow up with GI as scheduled (8) Anxiety: Code(s): F41.9 - Anxiety disorder, unspecified Plan: Continue Clonazepam 1 mg BID PRN Follow up with psychiatry as scheduled (9) Bipolar affective disorder, currently depressed, moderate: Code(s): F31.32 - Bipolar disorder, current episode depressed, moderate Plan: Continue Latuda 60 mg Q HS and Fluoxetine 40 mg QD Follow up with psychiatry as scheduled (10) Smoker: Comment: Has been a long-time smoker. She was down to 2 cigarettes a day, but lately has gone back to half pack a day, because of her increased anxiety. SHE IS A KNOWN CASE OF BIPOLAR DISORDER AND TENDS TO HAVE EPISODES OF INCREASED ANXIETY. Counseled that she should try to quit completely. Hopefully Chantix would help. Code(s): F17.200 - Nicotine dependence, unspecified, uncomplicated Plan: Counseled again on smoking cessation Is currently still on Chantix to help her quit smoking (11) Overweight (BMI 25.0-29.9): Code(s): E66.3 - Overweight Plan: Reinforced diet/exercise as tolerated/lose weight Plan Follow up in 4 months Orders: Orders Lipid Panel 4 Months E78.00 - Pure hypercholesterolemia, unspecified Comprehensive Drake. Panel Fast 4 Months E78.00 - Pure hypercholesterolemia, unspecified Complete Blood Count Auto Diff 4 Months I10 - Essential (primary) hypertension TSH reflex Free T4 4 Months E78.00 - Pure hypercholesterolemia, unspecified Medications: New ondansetron HCl 4 mg PO Q8H PRN 30 tabs 5RF nausea and vomiting 10 days pantoprazole 40 mg PO DAILY 30 tabs 3RF 30 days Discontinued ondansetron Discontinued Reason: Doctor's Order 4 mg PO Q8H PRN 45 tabs 1RF nausea and vomiting 15 days Coding Level of Care Code Est Pt Level 4 (81823) Diagnoses Nausea and vomiting R11.2 Vomiting type: unspecified Asthma-COPD overlap syndrome J44.9 Arthritis of carpometacarpal (CMC) joint of left thumb M18.12 Lumbar degenerative disc disease M51.36 Atherosclerotic cardiovascular disease I25.10 Pure hypercholesterolemia E78.00 Hepatitis C B18.2 Viral hepatitis chronicity: chronic Hepatic coma status: without hepatic coma Anxiety F41.9 Bipolar affective disorder, currently depressed, moderate F31.32 Smoker F17.200 Overweight (BMI 25.0-29.9) E66.3
== END 2022-10-05 17:11 | disposition home or self-care (01) ==
PROVIDERS: Visit Provider Internal Medicine
DX: R11.2 Nausea with vomiting, unspecified (principal); J44.9 Chronic obstructive pulmonary disease, unspecified; B18.2 Chronic viral hepatitis C; F31.32 Bipolar disorder, current episode depressed, moderate; F41.9 Anxiety disorder, unspecified; F17.200 Nicotine dependence, unspecified, uncomplicated; M51.36 Other intervertebral disc degeneration, lumbar region; M18.12 Unilateral primary osteoarthritis of first carpometacarpal joint, left hand; E78.00 Pure hypercholesterolemia, unspecified; I25.10 Atherosclerotic heart disease of native coronary artery without angina pectoris; E66.3 Overweight
CPT/HCPCS: 99214

== ENCOUNTER 2022-10-16 15:48 | Outpatient (AMB) | payer MEDICARE, MEDICAID, SELFPAY ==
--- NOTE | 2022-10-16 15:50 | MHC.OFFVIS ---
Intake Vital Signs 10/16/22 15:51 Height 5 ft 3 in Weight 166 lb 7.184 oz BMI 29.5 BP 136/72 Blood Pressure Location Lt brachial Position Sitting Pulse 75 Pulse Source Pulse Oximeter Pulse Oximetry (%) 98 Oxygen Delivery Method Room Air Intake Visit Reasons: COPD Allergies erythromycin base Allergy (Unknown, Verified 10/16/22 15:58) Nausea and Vomiting, Stomach Upset isosorbide Allergy (Unknown, Verified 10/16/22 15:58) Headaches, stomach upset Medication List - Last Reconciled 10/16/22 by Bridget Morrell MD aspirin (Adult Low Dose Aspirin) 81 mg PO DAILY atorvastatin 80 mg PO BEDTIME 90 days clonazepam 1 mg PO BID cyclobenzaprine 10 mg PO TID PRN 10 days fluoxetine 40 mg PO DAILY levalbuterol tartrate 45 mcg/actuation 1 puff inhalation Q4-6H PRN 30 days lurasidone (Latuda) 60 mg PO BEDTIME meloxicam 15 mg PO DAILY PRN 30 days nitroglycerin 0.4 mg sublingual Q5M ondansetron HCl 4 mg PO Q8H PRN 10 days pantoprazole 40 mg PO DAILY 30 days Symbicort 160-4.5 mcg/actuation (budesonide-formoterol) 2 puffs PO BID NS valacyclovir 2,000 mg (2 x 1 gram) PO BID 1 day varenicline 1 mg PO BID 28 days varenicline 0.5 mg PO BID 3 days varenicline (Chantix Continuing Month Box) 1 mg PO BID Do you need a note to return to daycare/school/sports/work: No HPI COPD HPI Details 52 YEARS OLD FEMALE, KNOWN CASE OF BRONCHIAL ASTHMA/COPD, , AND IS SMOKER COMES AFTER MORE THAN 6 MONTHS FOR FOLLOW-UP. WITH THE HELP OF CHANTIX SHE HAD QUIT SMOKING ALMOST COMPLETELY WAS DOWN TO 2 CIGARETTES A DAY. THEN SHE STOPPED USING CHANTIX AND HAS GONE BACK TO SMOKING, NOW ALMOST 1 PACK A DAY. SHE PLANS TO RESTART CHANTIX. 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 HER BREATHING HAS BEEN GOOD EXCEPT FOR MILD INTERMITTENT COUGH AFTER SMOKING. USES SYMBICORT 2 PUFFS TWICE A DAY REGULARLY AND LEVALBUTEROL ONLY ONCE IN A WHILE. PFSH Medical History Anxiety Asthma Asthma-COPD overlap syndrome Bipolar affective disorder, currently depressed, moderate Fibromyalgia Lumbar degenerative disc disease Obesity (BMI 30-39.9) Overweight (BMI 25.0-29.9) Pure hypercholesterolemia Smoker Surgical History History of cardiac catheterization Family History Mother Liver cancer Father No problems noted. Other Mental health problem Substance abuse Social History Housing: Apartment Alcohol intake: former Patient Tobacco Use Status: Current everyday Tobacco user Cigarette Packs Per Day: 1 e-Cigarette/Vaping Use: Never Used Second Hand Smoke Exposure: Yes service: No Current occupational status: employed Cognitive needs: No Hearing needs: No Vision needs: No Review of Systems Const All systems reviewed & are unremarkable except as noted in HPI and below Eyes Reports no additional complaints ENT Reports sore throat (Scratchy feeling in the throat most of the time) Card Denies chest pain, Denies irregular heart rhythm and Denies leg edema Resp Reports as per HPI GI Reports no additional complaints Reports no additional complaints Musc Reports no additional complaints Skin/Breast Reports system reviewed and no additional complaints, except as documented Neuro Reports no additional complaints Psych Reports anxiety and Reports depression (Being treated with fluoxetine) Physical Exam Const Other: Quite anxious and somewhat Weepy at this time General: comfortable, no acute distress, alert and awake Orientation/consciousness: patient oriented x3 HEENT Head: Yes normal to inspection General nose exam: No nasal polyps present and No nasal discharge present Face and sinus: Yes sinuses nontender Mouth: oropharynx normal Throat: Yes posterior oropharynx normal Eyes General: appearance normal, both eyes and all related structures Neck Neck: Yes normal visual inspection, Yes no lymphadenopathy, Yes trachea midline and Yes no JVD Thyroid: Thyroid normal Chest Chest palpation & inspection: normal inspection of the chest, normal palpation of entire chest wall and no tenderness Resp Other: Percussion note resonant. Does have equal breath sounds on both sides. NO WHEEZES OR CREPITATIONS ARE HEARD TODAY. Cardio Palpation: normal PMI Rate: regular rate Rhythm: regular rhythm Heart sounds: no gallops and no murmurs Peripheral pulses: Peripheral pulses 2+ throughout GI Palpation (GI): Soft to palpation, nontender, No hepatosplenomegaly present and no masses Auscultation: normal bowel sounds Back/Spine/Pelvis Thoracic/Lumbar Spine: thoracic and lumbar spine normal to inspection Skin General skin exam: no rashes or lesions noted Neuro General: patient oriented x3 and no focal motor deficits Cranial nerves: Yes CN's II-XII intact bilaterally Extrem General: Yes normal to inspection, Yes no clubbing, cyanosis or edema and Yes no calf tenderness Psych Appearance: grossly normal and well kempt Speech and movement: Normal speech and movement present Assessment & Plan Assessment & Plan (1) Asthma-COPD overlap syndrome: Comment: Has not been able to perform pulmonary function test, Clinical diagnosis ACO ( Asthma/Copd syndrome ) Remains well controlled with the current regimen as follows. TX : Symbicort 160-4.52 puffs b.i.d. 2 puffs bid And levalbuterol-45 2 puffs Q 6 hours p.r.n.. Will recheck her in 6 months. Code(s): J44.9 - Chronic obstructive pulmonary disease, unspecified (2) Bipolar affective disorder, currently depressed, moderate: Comment: She seems fairly stable at this time, but fluctuations in her mental status make her go back to smoking. Code(s): F31.32 - Bipolar disorder, current episode depressed, moderate (3) Smoker: Comment: Has been a long-time smoker. She was down to 2 cigarettes a day, but lately has gone back to half pack a day, because of her increased anxiety. SHE IS A KNOWN CASE OF BIPOLAR DISORDER AND TENDS TO HAVE EPISODES OF INCREASED ANXIETY WITH INCREASED SMOKING. COUNSELED TO QUIT COMPLETELY, AND GO BACK TO USING CHANTIX. Code(s): F17.200 - Nicotine dependence, unspecified, uncomplicated Coding Level of Care Code Est Pt Level 3 (29092) Diagnoses Asthma-COPD overlap syndrome J44.9 Bipolar affective disorder, currently depressed, moderate F31.32 Smoker F17.200
[2022-10-16 15:51] VITALS: BP 136/72; PULSE 75; O2SAT 98; BMI 29.5
== END 2022-10-16 16:06 | disposition home or self-care (01) ==
PROVIDERS: PCP Internal Medicine; Visit Provider Internal Medicine
DX: J44.9 Chronic obstructive pulmonary disease, unspecified (principal); F31.32 Bipolar disorder, current episode depressed, moderate; F17.200 Nicotine dependence, unspecified, uncomplicated
CPT/HCPCS: 99213

== ENCOUNTER → 2022-10-16 15:48 | Outpatient (BNVA) | payer MEDICARE, MEDICAID, SELFPAY | PROVIDERS: PCP Internal Medicine; Visit Provider Internal Medicine | DX: J44.9 Chronic obstructive pulmonary disease, unspecified (principal); F31.32 Bipolar disorder, current episode depressed, moderate; F17.210 Nicotine dependence, cigarettes, uncomplicated | CPT/HCPCS: 99212 ==

== ENCOUNTER 2022-10-24 08:01 | Outpatient (AMB) | payer MEDICARE, MEDICAID, SELFPAY ==
--- NOTE | 2022-10-24 08:06 | A.OFFVIS_ITS ---
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: No Accompanied by: Self / Same As Patient Allergies erythromycin base Allergy (Unknown, Verified 10/24/22 08:08) Nausea and Vomiting, Stomach Upset isosorbide Allergy (Unknown, Verified 10/24/22 08:08) Headaches, stomach upset Medication List - Last Reconciled 10/24/22 by Yelena Wilcox PA-C aspirin (Adult Low Dose Aspirin) 81 mg PO DAILY atorvastatin 80 mg PO BEDTIME 90 days clonazepam 1 mg PO BID fluoxetine 40 mg PO DAILY levalbuterol tartrate 45 mcg/actuation 1 puff inhalation Q4-6H PRN 30 days lurasidone (Latuda) 60 mg PO BEDTIME nitroglycerin 0.4 mg sublingual Q5M ondansetron HCl 4 mg PO Q8H PRN 10 days pantoprazole 40 mg PO DAILY 30 days Symbicort 160-4.5 mcg/actuation (budesonide-formoterol) 2 puffs PO BID NS valacyclovir 2,000 mg (2 x 1 gram) PO BID 1 day varenicline 1 mg PO BID 28 days varenicline 0.5 mg PO BID 3 days varenicline (Chantix Continuing Month Box) 1 mg PO BID HPI HPI Comments History of Present Illness Details A 52-year-old female history of HCV, treated, ETR, personal history of colon polyps follows up. 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 No fever chills PFSH Medical History Anxiety Asthma Asthma-COPD overlap syndrome Bipolar affective disorder, currently depressed, moderate Fibromyalgia Lumbar degenerative disc disease Obesity (BMI 30-39.9) Overweight (BMI 25.0-29.9) Pure hypercholesterolemia Smoker Surgical History History of cardiac catheterization Family History Mother Liver cancer Father No problems noted. Other Mental health problem Substance abuse Social History Housing: Apartment Alcohol intake: former Patient Tobacco Use Status: Current everyday Tobacco user Cigarette Packs Per Day: 1 e-Cigarette/Vaping Use: Never Used Second Hand Smoke Exposure: Yes service: No Current occupational status: employed Cognitive needs: No Hearing needs: No Vision needs: No Review of Systems Const All systems reviewed & are unremarkable except as noted in HPI and below Card Denies chest pain and Denies dyspnea Resp Denies dyspnea GI Denies abdominal pain, Denies hematochezia and Reports constipation Psych Reports anxiety Physical Exam Vital Signs: Last Vital Signs Pulse 88 10/24/22 08:07 BP 106/78 10/24/22 08:07 BMI result Body Mass Index 29.6 Alert oriented no acute distress anxious Anicteric Cardiovascular regular rate rhythm no murmurs no Lungs rhonchi clear with cough no wheezes Extremities without edema clubbing cyanosis Const General: healthy appearing, comfortable and no acute distress Orientation/consciousness: patient oriented x3 Limitations: no limitations Eyes Conjunctivae: conjunctivae normal Resp Effort & Inspection: normal respiratory effort and able to speak in complete sentences Auscultation: diminished lung sounds Cardio Rate: regular rate Rhythm: regular rhythm GI Palpation (GI): Soft to palpation and nontender Skin General skin exam: no rashes or lesions noted Neuro General: patient oriented x3 Extrem General: Yes full ROM Psych Mental Status: mental status grossly normal Speech and movement: Clear speech present Affect: Animated affect present Attitude: cooperative Thought process: Normal thought process present Thought content: Normal thought content present Assessment & Plan Assessment & Plan (1) Hepatitis C: Code(s): B19.20 - Unspecified viral hepatitis C without hepatic coma Qualifiers: Hepatic coma status: without hepatic coma Viral hepatitis chronicity: chronic Qualified Code(s): B18.2 - Chronic viral hepatitis C Plan: HCV viral count for SVR (2) Nausea and vomiting: Comment: Multiple GI complaints may have functional component MJ may play a role Avoid culprits Continue Zofran as needed Code(s): R11.2 - Nausea with vomiting, unspecified Qualifiers: Vomiting type: unspecified Qualified Code(s): R11.2 - Nausea with vomiting, unspecified (3) History of adenomatous polyp of colon: Comment: Overdue polyp surveillance Code(s): Z86.010 - Personal history of colonic polyps Plan: Polyp surveillance colonoscopy (4) Asthma-COPD overlap syndrome: Comment: Has not been able to perform pulmonary function test, Clinical diagnosis ACO ( Asthma/Copd syndrome ) Remains well controlled with the current regimen as follows. TX : Symbicort 160-4.52 puffs b.i.d. 2 puffs bid And levalbuterol-45 2 puffs Q 6 hours p.r.n.. Will recheck her in 6 months. Code(s): J44.9 - Chronic obstructive pulmonary disease, unspecified Orders: Orders EGD/[place] Combo - GI Use Only Today B19.20 - Unspecified viral hepatitis C without hepatic coma, R11.2 - Nausea with vomiting, unspecified Hepatitis C Viral Load Today B19.20 - Unspecified viral hepatitis C without hepatic coma H pylori Ag Stool Today A04.8 - Other specified bacterial intestinal infections Lipid Panel Today K76.0 - Fatty (change of) liver, not elsewhere classified Complete Blood Count Auto Diff Today R11.2 - Nausea with vomiting, unspecified Comprehensive Met. Panel Today K58.9 - Irritable bowel syndrome without diarrhea Medications: New methylcellulose (laxative) (Citrucel) 500 mg PO TID 30 days 90 tabs 5RF docusate sodium (Colace) 200 mg (2 x 100 mg) PO BEDTIME 60 caps 5RF bisacodyl (Dulcolax (bisacodyl)) Take 4 tablets by mouth at 12:00pm the day before your procedure. 20 mg (4 x 5 mg) PO ONCE 1 day 4 tabs 0RF colonoscopy prep Z12.11 - Encounter for screening for malignant neoplasm of colon polyethylene glycol 3350 (Miralax) Take as directed by mouth the day before your procedure. 238 grams PO ONCE 1 day PRN 238 grams 0RF laxative effect polyethylene glycol 3350 (Miralax) 17 grams PO DAILY 510 grams 6RF Patient Instructions: 52-year-old female history HCV, personal history colon polyps due for polyp surveillance Update lab H pylori stool antigen to weeks, she will as discontinue omeprazole, she may take Tums EGD colonoscopy-MiraLax Gatorade split prep must be escorted due to anesthesia Chronic constipation, consistent bowel regimen maintain high-fiber diet Labs HCV-for SVR-if negative she has a care-no need for further testing-the hep C antibody will remain positive for infinite amount of time Encouraged to call questions or concerns Pre she had the opportunity assist in the care the Coding Level of Care Code Est Pt Level 3 (26173) Diagnoses Hepatitis C B18.2 Hepatic coma status: without hepatic coma Viral hepatitis chronicity: chronic Nausea and vomiting R11.2 Vomiting type: unspecified History of adenomatous polyp of colon Z86.010 Asthma-COPD overlap syndrome J44.9 Time Spent (min) 35
[2022-10-24 08:07] VITALS: BP 106/78; PULSE 88; BMI 29.6
== END 2022-10-24 08:49 | disposition home or self-care (01) ==
PROVIDERS: PCP Internal Medicine; Visit Provider Physician Assistant
DX: B18.2 Chronic viral hepatitis C (principal); R11.2 Nausea with vomiting, unspecified; Z86.010 Personal history of colon polyps; J44.9 Chronic obstructive pulmonary disease, unspecified
CPT/HCPCS: 99213

== ENCOUNTER 2022-10-24 08:01 | Outpatient (REF) | payer MEDICARE, MEDICAID, SELFPAY ==
[2022-10-24 09:10] LABS: MANUAL DIFF FLAG NO
[2022-10-24 10:28] LABS: Basophils Absolute Auto 0.1 X10*3/uL (0.0-0.2); Basophils Percent Auto 1.2 % (0-2); Eosinophils Absolute Auto 0.2 X10*3/uL (0.0-0.4); Eosinophils Percent Auto 2.5 % (0-4); Hematocrit 44.1 % (37.0-47.0); Hemoglobin 14.4 g/dl (12.0-16.0); Imm Gran Abs Auto 0.03 X10*3/uL (0.00-0.03); Imm Gran Pct Auto 0.4 % (0.0-0.4); Lymphocytes Absolute Auto 2.6 X10*3/uL (1.2-4.9); Lymphocytes Percent Auto 33.2 % (20-40); Mean Corpuscular HGB Conc 32.7 g/dl (31.0-35.0); Mean Platelet Volume 10.5 fL (9.4-12.3); Monocytes Absolute Auto 0.7 X10*3/uL (0.1-1.2); Neutrophils Absolute Auto 4.2 x10*3/uL (2.0-8.3); Neutrophils Percent Auto 53.7 % (45-73); Platelet Count 242 X10*3/uL (160-400); Red Blood Count 4.64 X10*6/uL (4.20-5.50); Red Cell Distribution Width 13.2 % (11.0-16.0); White Blood Count 7.8 X10*3/uL (4.8-10.8)
[2022-10-24 11:11] LABS: Alanine Aminotransferase 16 U/L (0-31); Albumin Level 4.4 g/dL (3.5-5.0); Alkaline Phosphatase 61 U/L (39-117); Anion Gap 13 (12-20); Aspartate Amino Transferase 19 U/L (5-31); Bilirubin Total 0.6 mg/dL (0.0-1.0); Blood Urea Nitrogen 11 mg/dL (9-16); Calcium 9.4 mg/dL (8.4-10.2); Carbon Dioxide 27 mmol/L (22-29); Chloride 104 mmol/L (96-108); Cholesterol 160 mg/dL (<200); Estimated Glomerular Filt Rate > 60; Glucose Random 97 mg/dL (60-115); HDL Cholesterol 49 mg/dL (>40); LDL Cholesterol Calculated 95 mg/dL (<100); Potassium 4.4 mmol/L (3.3-5.1); Sodium 140 mmol/L (135-145); Total Protein 7.4 g/dL (6.5-8.0); Triglycerides 82 mg/dL (<150)
[2022-10-26 09:14] LABS: HCV Log PCR <1.18 NOT DETECTED Log IU/mL (NOT DETECTED); HepC Viral Load <15 NOT DETECTED IU/mL (NOT DETECTED)
== END 2022-10-24 08:02 | disposition home or self-care (01) ==
LOC: HO.LAB 08:01
PROVIDERS: PCP Internal Medicine; Visit Provider Physician Assistant
DX: K76.0 Fatty (change of) liver, not elsewhere classified (principal); K58.9 Irritable bowel syndrome, unspecified; R11.2 Nausea with vomiting, unspecified; B18.2 Chronic viral hepatitis C; J44.9 Chronic obstructive pulmonary disease, unspecified; A04.8 Other specified bacterial intestinal infections; Z79.899 Other long term (current) drug therapy; Z86.010 Personal history of colon polyps
CPT/HCPCS: 36415; 80053; 80061; 85025; 87522; 99212

== ENCOUNTER 2022-11-07 08:08 | Day surgery (SDC) | payer MEDICARE, MEDICAID, SELFPAY ==
--- NOTE | 2022-11-06 10:43 | P.CONAN_ITS ---
Documented by User: Lina Briggs NP 11/06/22 10:48 HPI - Anesthesia Eval Consult details Narrative: 52yo F for Upper Endoscopy and Colonoscopy Follows cardiology for CAD with hx NSTEMI 2012. Last seen 2021. Reported CP with coughing. Smoking cessation encouraged. Borderline stress test likely artifact. [facility] Active Problems Active Problems: All Active Problems (Updated 10/24/22 @ 12:33 by Yelena Wilcox PA-C) History of colon polyps (Acute) Nausea and vomiting (Acute) Arthritis of carpometacarpal (CMC) joint of left thumb (Acute) Lumbar degenerative disc disease (Acute) De Quervain's syndrome (tenosynovitis) (Acute) Acute bronchitis (Acute) Cold sore (Acute) Asthma-COPD overlap syndrome (Acute) Asthma (Acute) History of adenomatous polyp of colon (Acute) Overweight (BMI 25.0-29.9) (Acute) Pure hypercholesterolemia (Acute) Strain of cervical portion of left trapezius muscle (Acute) Headache (Acute) Status post fall (Acute) Left shoulder pain (Acute) Anxiety (Acute) Bipolar affective disorder, currently depressed, moderate (Acute) Fibromyalgia (Acute) Hepatitis C (Acute) Asthma with acute exacerbation (Acute) Bronchitis (Acute) HCV (hepatitis C virus) (Acute) Precordial chest pain (Acute) Atherosclerotic cardiovascular disease (Acute) Obesity (BMI 30-39.9) (Acute) Smoker (Acute) Asthma exacerbation (Acute) Acute bronchitis (Acute) Medication adverse effect (Acute) Respiratory infection (Acute) Sore throat (viral) (Acute) Asthma (Acute) Cough (Acute) Past Medical History Medical History Menopausal and postmenopausal disorder CAD (coronary artery disease) NSTEMI (non-ST elevated myocardial infarction) Lumbar degenerative disc disease Asthma-COPD overlap syndrome Asthma Overweight (BMI 25.0-29.9) Pure hypercholesterolemia Anxiety Bipolar affective disorder, currently depressed, moderate Fibromyalgia Obesity (BMI 30-39.9) Smoker Family History Family History Mother Liver cancer Father No problems noted. Other Mental health problem Substance abuse Surgical History Surgical History History of cardiac catheterization Social History Social History Housing: Apartment Alcohol intake: former Patient Tobacco Use Status: Current everyday Tobacco user Tobacco use type: Cigarette Cigarette Packs Per Day: 1 Smoked in Last 30 Days: Yes e-Cigarette/Vaping Use: Never Used Patient Interested in Nicotine Replacement: No Second Hand Smoke Exposure: Yes Are you DNR?: No Advance Directives: No Advance Directives Information Provided: Yes Nutrition Risks: No Nutritional Risk FDLMP: 10 years ago service: No Current occupational status: employed Cognitive needs: No Hearing needs: No Vision needs: No Meds Allergies Allergy/AdvReac Type Severity Reaction Status Date / Time erythromycin base Allergy Unknown Nausea and Verified 11/07/22 08:54 Vomiting, Stomach Upset isosorbide Allergy Unknown Headaches, Verified 11/07/22 08:54 stomach upset Home Medications Medication Instructions Recorded Confirmed Last Taken Type clonazepam 1 mg tablet 1 mg PO BID 06/15/21 11/07/22 11/07/22 History lurasidone 60 mg tablet (Latuda) 60 mg PO BEDTIME 10/17/21 11/07/22 Unknown History fluoxetine 40 mg capsule 40 mg PO DAILY 10/07/22 11/07/22 Unknown History Exam Exam Date and Time: November 06, 2022 1043 Pertinent Lab Results Pertinent Lab Results: Laboratory Tests 10/24/22 09:08 WBC 7.8 Hgb 14.4 Hct 44.1 Plt Count 242 Sodium 140 Potassium 4.4 Chloride 104 Carbon Dioxide 27 BUN 11 Creatinine 0.88 Narrative Narrative: ECHO 2021 Conclusions: - 1. Normal LV systolic function with impaired relaxation filling pattern 2. Normal cardiac valvular Dopplers 3. No gross pericardial effusion NM cardiolite stress test 2021 Impression: 1. Myocardial perfusion imaging study shows no clear ischemia. Reversible distal inferior defect but with normal contractility as well as adjacent GI tracer uptake, and hence suggestive of artifactual causes. Less likely true ischemia. 2. Gated LVEF is 59% during stress and 64% during rest. 3. Transient ischemic dilatation not present. EKG component of the test reported separately. Assessment and Plan Assessment Anesthesia Assessment: Chart Reviewed Documented by User: Geovanna Spear MD 11/07/22 11:40 [facility] Active Problems Active Problems: All Active Problems (Updated 11/07/22 @ 09:07 by Geovanna Spear MD) History of colon polyps (Acute) Nausea and vomiting (Acute) Arthritis of carpometacarpal (CMC) joint of left thumb (Acute) Lumbar degenerative disc disease (Acute) De Quervain's syndrome (tenosynovitis) (Acute) Acute bronchitis (Acute) Cold sore (Acute) Asthma-COPD overlap syndrome (Acute) Asthma (Acute) History of adenomatous polyp of colon (Acute) Overweight (BMI 25.0-29.9) (Acute) Pure hypercholesterolemia (Acute) Strain of cervical portion of left trapezius muscle (Acute) Headache (Acute) Status post fall (Acute) Left shoulder pain (Acute) Anxiety (Acute) Bipolar affective disorder, currently depressed, moderate (Acute) Fibromyalgia (Acute) Hepatitis C (Acute) Asthma with acute exacerbation (Acute) Bronchitis (Acute) HCV (hepatitis C virus) (Acute) Precordial chest pain (Acute) Atherosclerotic cardiovascular disease (Acute)o Obesity (BMI 30-39.9) (Acute) Smoker (Acute) Asthma exacerbation (Acute) Acute bronchitis (Acute) Medication adverse effect (Acute) Respiratory infection (Acute) Sore throat (viral) (Acute) Asthma (Acute) Cough (Acute) Sats dipping to 89% on room air. S/p albuterol therapy Past Medical History Medical History Menopausal and postmenopausal disorder CAD (coronary artery disease) NSTEMI (non-ST elevated myocardial infarction) Lumbar degenerative disc disease Asthma-COPD overlap syndrome Asthma Overweight (BMI 25.0-29.9) Pure hypercholesterolemia Anxiety Bipolar affective disorder, currently depressed, moderate Fibromyalgia Obesity (BMI 30-39.9) Smoker Family History Family History Mother Liver cancer Father No problems noted. Other Mental health problem Substance abuse Family history of problems with anesthesia: No Surgical History Surgical History History of cardiac catheterization History of Problems with Anesthesia: No Social History Social History Housing: Apartment Alcohol intake: former Patient Tobacco Use Status: Current everyday Tobacco user Tobacco use type: Cigarette Cigarette Packs Per Day: 1 Smoked in Last 30 Days: Yes e-Cigarette/Vaping Use: Never Used Patient Interested in Nicotine Replacement: No Second Hand Smoke Exposure: Yes Are you DNR?: No Advance Directives: No Advance Directives Information Provided: Yes Nutrition Risks: No Nutritional Risk FDLMP: 10 years ago service: No Current occupational status: employed Cognitive needs: No Hearing needs: No Vision needs: No Meds Allergies Allergy/AdvReac Type Severity Reaction Status Date / Time erythromycin base Allergy Unknown Nausea and Verified 11/07/22 08:54 Vomiting, Stomach Upset isosorbide Allergy Unknown Headaches, Verified 11/07/22 08:54 stomach upset Home Medications Medication Instructions Recorded Confirmed Last Taken Type clonazepam 1 mg tablet 1 mg PO BID 06/15/21 11/07/22 11/07/22 History lurasidone 60 mg tablet (Latuda) 60 mg PO BEDTIME 10/17/21 11/07/22 Unknown History fluoxetine 40 mg capsule 40 mg PO DAILY 10/07/22 11/07/22 Unknown History Exam Height,Weight and Vital Signs: Height 5 ft 3 in Weight 75.75 kg Vital Signs Temp Pulse Resp BP Pulse Ox O2 Del Method 11/07/22 08:53 98.0 F 75 18 99/60 94 Room Air 11/07/22 08:50 74 18 Narrative Narrative: ECHO 2021 Conclusions: - 1. Normal LV systolic function with impaired relaxation filling pattern 2. Normal cardiac valvular Dopplers 3. No gross pericardial effusion NM cardiolite stress test 2021 Impression: 1. Myocardial perfusion imaging study shows no clear ischemia. Reversible distal inferior defect but with normal contractility as well as adjacent GI tracer uptake, and hence suggestive of artifactual causes. Less likely true ischemia. 2. Gated LVEF is 59% during stress and 64% during rest. 3. Transient ischemic dilatation not present. EKG component of the test reported separately. 11/07/22: CXR- Unremarkable exam Airway Mallampati Class: II TM Dist: >3cm Neck ROM: Full Partial: Upper Loose/Missing/Broken Teeth: Yes (Partial dentures top. Denies broken or loose teeth) Heart: RRR Lungs: Fine crackles. Sats dipping to 89% RA. Post respiratory therapy with albuterol Assessment and Plan Assessment Anesthesia Assessment: Anesthesia Plan Discussed Final Anesthetic Review Family History of Problems with Anesthesia: No History of Problems with Anesthesia: No NPO: Yes ASA Class: IV Final Preanesthetic Review: No Changes in Pt Med Stat, Meds/Allgs Chart Reviewed, Consent Obtained/Reviewed and Anes Risks/Benef Reviewed Patient Risk: High Procedure Risk: Low Assessment/Block/Sedation in SS: Assess/Block/Sedation-SS Anesthetic Plan Anesthetic Plan: MAC: Disposition: Standard PACU
--- NOTE | ~2022-11-07 | XR_ITS ---
EXAMINATION: XR CHEST CLINICAL INFORMATION: Crackles. COMPARISON: None available. TECHNIQUE: Frontal view of the chest was obtained. FINDINGS: No significant abnormality is noted involving the heart, lungs, mediastinum, bony thorax or soft tissues. XR/XR chest 1V IMPRESSION: Unremarkable chest examination.
[2022-11-07 08:00] VITALS: BMI 29.6
[2022-11-07] MEDS: Lactated Ringers 1,000 ML 100 ML IVCONT (08:37)
--- NOTE | 2022-11-07 08:38 | PC.NURSE ---
patient has not had a menstrual cycle for 10 years, does not need urine hcg per policy
[2022-11-07 08:50] VITALS: PULSE 74; RESP 18; O2SAT 93
[2022-11-07] MEDS: Albuterol Sulfate (0.083%) 2.5 MG/3 ML VIAL.NEB INHALE (08:50)
[2022-11-07 08:53] VITALS: BP 99/60; PULSE 75; RESP 18; TEMP 36.7; O2SAT 94
--- NOTE | 2022-11-07 09:01 | P.HPSUR_ITS ---
Pre-Procedural Eval Section A Date of Service: 11/07/22 Section B Chief Complaint: nausea and hx of colon polyps Details of Present Illness: uncle with CRC Relevant Family History (Specify if Yes): Yes Relevant Social History: Tobacco Use Present Medications: see Short Stay Collaborative assessment Medical History: Significant History (Anxiety Asthma Asthma-COPD overlap syndrome Bipolar affective disorder, currently depressed, moderate Fibromyalgia Lumbar degenerative disc disease Obesity (BMI 30-39.9) Overweight (BMI 25.0- 29.9) Pure hypercholesterolemia Smoker) History of Previous Operations: Relevant previous surgery/procedure and date(s) (History of cardiac catheterization) Allergies: Allergies Allergy/AdvReac Type Severity Reaction Status Date / Time erythromycin base Allergy Unknown Nausea and Verified 11/07/22 08:54 Vomiting, Stomach Upset isosorbide Allergy Unknown Headaches, Verified 11/07/22 08:54 stomach upset Review of Systems Sugical H&P ROS: Negative: Constitution, Cardiovascular, Respiratory, Neurological, Psychiatric, Hem-Onc, Allergic/Immunologic, Gastrointestinal, Genitourinary, Musculoskeletal, Integumentary, Endocrine and Eyes/Ears/Nose/Throat Exam Surgical H&P Exam: Normal: HEENT, Normal: Heart, Normal: Lungs, Normal: Extremities, Normal: Abdomen, Normal: Skin and Normal: Neurological Plan Diagnosis/Plan: Unchanged I have reviewed the history and physical and performed a pertinent physical examination on my patient. No changes have occurred unless specified. Time Spent With Patient Time: Total time managing care of this patient today ____ minutes.
--- NOTE | 2022-11-07 09:02 | P.OP_ITS ---
Operative Note Operative Note Date of Service: 11/07/22 Narrative: Operative Information Procedure Description: EGD, Colonoscopy Indication: nausea and hx of colon polyps Anesthesia: MAC FLEXIBLE TRANSORAL UPPER GASTROINTESTINAL ENDOSCOPY AND COLONOSCOPY PROCEDURE NOTE UPPER ENDOSCOPY Consent: Indications for the procedure and potential complications of bleeding, perforation, reaction to medications and missed diagnosis were discussed with the patient and informed consent was obtained. Instrument: Olympus GIF H 190 J mid size upper endoscope Monitoring: Vital signs and clinical assessment, continuous EKG monitoring, Pulse oximetry, Carbon Dioxide monitoring and blood pressure monitoring were done throughout the procedure. Procedure: The patient was placed in the left lateral decubitis position and pre-procedure medications were administered and a bite block was placed. The endoscope was inserted into the mouth and advanced under direct vision to the third part of duodenum. A careful inspection was made as the upper endoscope was withdrawn including a retroflexed examination of the proximal stomach; Findings and interventions are described below. Findings: Larynx:normal Esophagus: GE junction at 36 cm, diaphragm hiatus at 36 cm, normal mucosa -bx taken from esophagus Stomach: Mild gastritis. Biopsies were obtained. Grade 2 flap valve on retroflexed examination of the cardia. there was reduced gastric movement Duodenum: Normal bulb and descending duodenum, bx taken Intervention: Biopsies as noted above COLONOSCOPY Instrument: Olympus variable stiffness pediatric scope 190L Colonoscopy Monitoring: Vital signs and clinical assessment, continuous EKG monitoring, Pulse oximetry, Carbon Dioxide monitoring and blood pressure monitoring were done throughout the procedure. Colon withdrawal time was 15 minutes. Procedure: The patient was placed in the left lateral decubitis position and pre-procedure medications were administered. After a digital rectal examination of the ano-rectum, the video colonoscope was inserted into the rectum and advanced through the colon to the cecum/TI. The colonoscope was slowly withdrawn in a retrograde panoramic fashion and the colon mucosa was carefully examined including a retroflexed view of the rectum. Findings and interventions are described below. Procedure Difficulty:moderate Findings: Terminal Ileum-normal Cecum:normal Ascending Colon: 12 mm sessile polyp lifted with eleview injection and then removed with hot snare, not retrieved -clinically appeared to be a SSA Transverse Colon -normal Descending Colon:normal Sigmoid Colon:moderate diverticulosis, 10 mm sessile polyp removed with cold snare Rectum: Retroflexion with moderate sized internal hemorrhoids, grade I Anorectum - normal Colon preparation: [place] Bowel Preparation Scale Right colon; 2 Transverse colon: 3 Left colon; 3 (0 = Unprepared colon segment with mucosa not seen due to solid stool that cannot be cleared. 1 = Portion of mucosa of the colon segment seen, but other areas of the colon segment not well seen due to staining, residual stool and/or opaque liquid. 2 = Minor amount of residual staining, small fragments of stool and/or opaque liquid, but mucosa of colon segment seen well. 3 = Entire mucosa of colon segment seen well with no residual staining, small fragments of stool or opaque liquid) Impression and Post Procedure Diagnosis: Endoscopy Findings: possible gastroparesis mild gastritis Colonoscopy Findings: polyps internal hemorrhoids diverticular disease Plan: Await Pathology results Repeat Colonoscopy in 3-4 years due to polyps or earlier if clinically indicated High fiber diet leaflet avoid straining at stool, epsom salts and sitz bath, anusol supps or cream Above findings were reviewed with the patient and relevant handouts were provided if indicated.
--- NOTE | 2022-11-07 10:51 | PC.NURSE ---
slight crackles in bilateral lung bases still noted after respiratory treatment. dr. raman updated. 1 view chest xray ordered. patient in agreeance. xray reviewed. okay to proceed. post respiratory treatment patient was initially 97%RA. Since then has fluctuated 91-93%RA. Dr. raman aware. occ. smokers cough noted. okay to proceed.
[2022-11-07 12:00] VITALS: BP 104/68; PULSE 74; RESP 14; TEMP 36.5; O2SAT 96
[2022-11-07 12:15] VITALS: BP 110/70; PULSE 74; RESP 16; TEMP 37.1; O2SAT 96
== END 2022-11-07 12:55 | disposition home or self-care (01) ==
PROVIDERS: PCP Internal Medicine; Visit Provider Internal Medicine Gastroenterology
PROC: (CPT 45385; principal; 2022-11-07 09:20)
DX: Z12.11 Encounter for screening for malignant neoplasm of colon (principal); Z86.010 Personal history of colon polyps; K63.5 Polyp of colon; K57.30 Diverticulosis of large intestine without perforation or abscess without bleeding; K64.0 First degree hemorrhoids; K58.9 Irritable bowel syndrome, unspecified; R11.2 Nausea with vomiting, unspecified; R68.81 Early satiety; K29.50 Unspecified chronic gastritis without bleeding; K44.9 Diaphragmatic hernia without obstruction or gangrene; J44.9 Chronic obstructive pulmonary disease, unspecified; M79.7 Fibromyalgia; I25.10 Atherosclerotic heart disease of native coronary artery without angina pectoris; F31.9 Bipolar disorder, unspecified; F41.1 Generalized anxiety disorder; E78.00 Pure hypercholesterolemia, unspecified; Z86.19 Personal history of other infectious and parasitic diseases; Z79.82 Long term (current) use of aspirin; Z79.51 Long term (current) use of inhaled steroids; Z79.899 Other long term (current) drug therapy; Z88.1 Allergy status to other antibiotic agents; Z88.8 Allergy status to other drugs, medicaments and biological substances; F17.210 Nicotine dependence, cigarettes, uncomplicated
CPT/HCPCS: 45385; 45381; 43239; 71045; 88305; 88342; 94640

== ENCOUNTER → 2022-11-07 08:08 | Outpatient (BNV) | payer MEDICARE, MEDICAID, SELFPAY | PROVIDERS: PCP Internal Medicine; Visit Provider Internal Medicine Gastroenterology | DX: R68.81 Early satiety (principal); K29.70 Gastritis, unspecified, without bleeding; D12.2 Benign neoplasm of ascending colon; D12.5 Benign neoplasm of sigmoid colon; K64.0 First degree hemorrhoids; K57.30 Diverticulosis of large intestine without perforation or abscess without bleeding | CPT/HCPCS: 43239; 45381; 45385 ==

== ENCOUNTER 2022-11-21 08:43 | Outpatient (AMB) | payer MEDICARE, MEDICAID, SELFPAY ==
--- NOTE | 2022-11-21 08:47 | A.OFFVIS_ITS ---
Intake Vital Signs 11/21/22 08:53 Height 5 ft 3 in Weight 163 lb BMI 28.9 BP 143/81 H Blood Pressure Location Lt brachial Position Sitting Pulse 73 Intake Visit Reasons: S/p DBL Intake Note: Patient follow up for Colonoscopy/EGD results. patient cc: Nauseas, abdominal bloating, between diarrhea and constipation, denies any other GI issues. 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 Accompanied by: Self / Same As Patient Allergies erythromycin base Allergy (Unknown, Verified 11/21/22 08:47) Nausea and Vomiting, Stomach Upset isosorbide Allergy (Unknown, Verified 11/21/22 08:47) Headaches, stomach upset Medication List - Last Reconciled 11/21/22 by Yelena Wilcox PA-C aspirin (Adult Low Dose Aspirin) 81 mg PO DAILY atorvastatin 80 mg PO BEDTIME 90 days clonazepam 1 mg PO BID docusate sodium (Colace) 200 mg (2 x 100 mg) PO BEDTIME fluoxetine 40 mg PO DAILY levalbuterol tartrate 45 mcg/actuation 1 puff inhalation Q4-6H PRN 30 days lurasidone (Latuda) 60 mg PO BEDTIME nitroglycerin 0.4 mg sublingual Q5M ondansetron HCl 4 mg PO Q8H PRN 10 days pantoprazole 40 mg PO DAILY 30 days Symbicort 160-4.5 mcg/actuation (budesonide-formoterol) 2 puffs PO BID NS valacyclovir 2,000 mg (2 x 1 gram) PO BID 1 day varenicline 1 mg PO BID 28 days varenicline 0.5 mg PO BID 3 days HPI HPI Comments History of Present Illness Details A 52 y/o female chronic constipation, nausea- she smoke MJ gastric emptying tomorrow Miralax-good response- doesn't want take every day. she has insomnia for years-she has tried many medications She started a new job she is not would have to you coming in for appointments Overall she doing okay Reviewed procedure report, pathology and recommendation She has no vomiting, abdominal pain, hematemesis, hematochezia fever chills PFSH Medical History Menopausal and postmenopausal disorder CAD (coronary artery disease) NSTEMI (non-ST elevated myocardial infarction) Lumbar degenerative disc disease Asthma-COPD overlap syndrome Asthma Overweight (BMI 25.0-29.9) Pure hypercholesterolemia Anxiety Bipolar affective disorder, currently depressed, moderate Fibromyalgia Obesity (BMI 30-39.9) Smoker Surgical History Hx of colonoscopy History of esophagogastroduodenoscopy (EGD) History of cardiac catheterization Family History Mother Liver cancer Father No problems noted. Other Mental health problem Substance abuse Social History Housing: Apartment Alcohol intake: former Patient Tobacco Use Status: Current everyday Tobacco user Tobacco use type: Cigarette Cigarette Packs Per Day: 1 e-Cigarette/Vaping Use: Never Used Second Hand Smoke Exposure: Yes service: No Current occupational status: employed Cognitive needs: No Hearing needs: No Vision needs: No Review of Systems Const All systems reviewed & are unremarkable except as noted in HPI and below Card Denies chest pain and Denies dyspnea Resp Denies dyspnea GI Denies abdominal pain and Reports nausea Physical Exam Vital Signs: Last Vital Signs Pulse 73 11/21/22 08:53 BP 143/81 H 11/21/22 08:53 BMI result Body Mass Index 28.9 Const General: cooperative, healthy appearing, comfortable, no acute distress and well groomed Limitations: no limitations Resp Effort & Inspection: normal respiratory effort and able to speak in complete sen tences Skin General skin exam: no rashes or lesions noted Extrem General: Yes full ROM Psych Appearance: grossly normal and well kempt Mental Status: mental status grossly normal Speech and movement: Normal speech and movement present and Clear speech present Affect: normal affect Attitude: cooperative Thought process: Normal thought process present Thought content: Normal thought content present Insight: Good insight present (Psych) Judgement: Good judgement present (Psych) Results Reviewed Results Reviewed: Findings: Terminal Ileum-normal Cecum:normal Ascending Colon: 12 mm sessile polyp lifted with eleview injection and then removed with hot snare, not retrieved -clinically appeared to be a SSA Transverse Colon -normal Descending Colon:normal Sigmoid Colon:moderate diverticulosis, 10 mm sessile polyp removed with cold snare Rectum: Retroflexion with moderate sized internal hemorrhoids, grade I Anorectum - normal Colon preparation: [place] Bowel Preparation Scale Right colon; 2 Transverse colon: 3 Left colon; 3 (0 = Unprepared colon segment with mucosa not seen due to solid stool that cannot be cleared. 1 = Portion of mucosa of the colon segment seen, but other areas of the colon segment not well seen due to staining, residual stool and/or opaque liquid. 2 = Minor amount of residual staining, small fragments of stool and/or opaque liquid, but mucosa of colon segment seen well. 3 = Entire mucosa of colon segment seen well with no residual staining, small fragments of stool or opaque liquid) Impression and Post Procedure Diagnosis: Endoscopy Findings: possible gastroparesis mild gastritis Colonoscopy Findings: polyps internal hemorrhoids diverticular disease Plan: Await Pathology results Repeat Colonoscopy in 3-4 years due to polyps or earlier if clinically indicated High fiber diet leaflet avoid straining at stool, epsom salts and sitz bath, anusol supps or cream Above findings were reviewed with the patient and relevant handouts were provided if indicated. Name: Lina Gann Age/Sex: 52/F Attending: Ivette Alcala MD : 1970 Submitted by: Ivette Alcala MD Copies to: Nathan Lang MD MR #: [id number] Status: [facility] Collected: 11/07/22 Location: [facility] Received: 11/07/22 Diagnosis A. Duodenum, biopsy: Duodenal mucosa with predominantly preserved villi and mild features consistent with chronic/non-specific duodenitis. B. Stomach, biopsy: Gastric antral mucosa with minimal chronic inactive gastritis; negative for H pylori, intestinal metaplasia and dysplasia. C. Esophagus, random, biopsy: Squamous mucosa with no specific change; no columnar mucosa present. D. Colon, sigmoid, polyp: Hyperplastic polyp. Clinical History Pre-Op Dx: Screening Post-Op Dx: Gastritis, possible gastroparesis Microscopic Description Microscopic sections reviewed. Immunostain for H. pylori on B is negative with appropriate control.Microscopic sections reviewed. Material Received A. Bx duodenum B. Bx stomach C. Bx random esophagus D. Polyp sigmoid colon Assessment & Plan Assessment & Plan (1) History of colon polyps: Comment: Large hyperplastic colon polyp, Code(s): Z86.010 - Personal history of colonic polyps (2) History of adenomatous polyp of colon: Code(s): Z86.010 - Personal history of colonic polyps (3) Diverticulosis: Code(s): K57.90 - Diverticulosis of intestine, part unspecified, without perforation or abscess without bleeding Plan: High-fiber diet ER protocol (4) Nausea and vomiting: Comment: Nausea no further vomiting MJ may play a role Avoid culprits Continue Zofran as needed Code(s): R11.2 - Nausea with vomiting, unspecified Qualifiers: Vomiting type: unspecified Qualified Code(s): R11.2 - Nausea with vomiting, unspecified Plan: GES-plan of care dependent on findings Small portions as opposed to 3 large meals Medications: New sennosides (senna) 8.6 mg PO DAILY 30 days PRN 30 caps 3RF constipation Patient Instructions: Asymptomatic screening colonoscopy 3-4 years-due to previous adenomas /large hyperplastic polyp Maintain high-fiber diet Continue usual medication Diverticulosis/diverticulitis ER protocol discuss GES-plan of care dependent on findings-prefers to call if to results due to new employment Small portions as opposed to 3 large meals Coding Level of Care Code Est Pt Level 3 (67872) Diagnoses History of colon polyps Z86.010 History of adenomatous polyp of colon Z86.010 Diverticulosis K57.90 Nausea and vomiting, unspecified vomiting type R11.2 Vomiting type: unspecified Time Spent (min) 35
[2022-11-21 08:53] VITALS: BP 143/81; PULSE 73; BMI 28.9
== END 2022-11-21 09:17 | disposition home or self-care (01) ==
PROVIDERS: PCP Internal Medicine; Visit Provider Physician Assistant
DX: K57.30 Diverticulosis of large intestine without perforation or abscess without bleeding (principal); Z86.010 Personal history of colon polyps; D12.2 Benign neoplasm of ascending colon; D12.5 Benign neoplasm of sigmoid colon; Z71.2 Person consulting for explanation of examination or test findings
CPT/HCPCS: 99213

== ENCOUNTER → 2022-11-21 08:43 | Outpatient (BNVA) | payer MEDICARE, MEDICAID, SELFPAY | PROVIDERS: PCP Internal Medicine; Visit Provider Physician Assistant | DX: K57.90 Diverticulosis of intestine, part unspecified, without perforation or abscess without bleeding (principal); R11.2 Nausea with vomiting, unspecified; Z86.010 Personal history of colon polyps | CPT/HCPCS: 99212 ==

== ENCOUNTER → 2022-12-12 07:58 | Outpatient (REF) | payer MEDICARE, MEDICAID, SELFPAY ==
--- NOTE | ~2022-12-12 | NM_ITS ---
EXAMINATION: RADIONUCLIDE SOLID FOOD GASTRIC EMPTYING 4-HOUR STUDY CLINICAL INFORMATION: Early satiety. COMPARISON: No previous gastric emptying study is available for comparison. TECHNIQUE: A standard meal consisting of 4 oz of Egg Beaters brand equivalent tagged with 1 mCi Tc-99m Sulfur Colloid, 8 oz water and 2 slices of toast with jelly was administered orally to the patient. Images were obtained using a dual head gamma camera in the anterior and posterior projections over of the stomach immediately post ingestion and at hourly intervals up to 4 hours post ingestion. The anterior and posterior counts at each time interval were averaged using the geometric mean and expressed as percentage of the immediate post ingestion counts. FINDINGS: There is good visualization of activity in the stomach immediately post ingestion. As the study progresses, there is good clearance of activity from the stomach and visualization of progressively increasing small bowel activity. By the end of the study, there is almost no retention noted in the stomach. Retention in the stomach at each time interval was: 1 hour 77% (normal 37%-90%) 2 hours 46% (normal 30%-60%) 3 hours 17% 4 hours 5% (normal 0%-10%) NM/NM gastric emptying study IMPRESSION: Normal 4-hour solid food gastric emptying study.
== END ==
LOC: HO.NUCMED 07:58
PROVIDERS: PCP Internal Medicine; Visit Provider Internal Medicine Gastroenterology
DX: R68.81 Early satiety (principal)
CPT/HCPCS: 78264; A9541

== ENCOUNTER 2023-04-29 15:52 | Outpatient (AMB) | payer MEDICARE, MEDICAID, SELFPAY ==
--- NOTE | 2023-04-29 15:57 | A.OFFVIS_ITS ---
Intake Vital Signs 04/29/23 15:58 Height 5 ft 3 in Weight 153 lb 2 oz BMI 27.1 BP 138/78 Blood Pressure Location Lt brachial Position Sitting Respiration 18 Pulse 107 H Pulse Source Pulse Oximeter Pulse Oximetry (%) 96 Oxygen Delivery Method Room Air Intake Visit Reasons: COPD Allergies erythromycin base Allergy (Unknown, Verified 04/29/23 16:04) Nausea and Vomiting, Stomach Upset isosorbide Allergy (Unknown, Verified 04/29/23 16:04) Headaches, stomach upset Medication List - Last Reconciled 04/29/23 by Bridget Morrell MD aspirin (Adult Low Dose Aspirin) 81 mg PO DAILY atorvastatin 80 mg PO BEDTIME clonazepam 1 mg PO BID docusate sodium (Colace) 200 mg (2 x 100 mg) PO BEDTIME fluoxetine 40 mg PO DAILY levalbuterol tartrate 45 mcg/actuation 1 puff inhalation Q4-6H PRN 30 days lurasidone (Latuda) 60 mg PO BEDTIME mometasone-formoterol 200-5 mcg/actuation (Dulera) 2 puffs inhalation BID 30 days nirmatrelvir-ritonavir 300 mg (150 mg x 2)-100 mg (Paxlovid) take TWO 150 mg tablets of nirmatrelvir with ONE 100 mg tablet of ritonavir twice daily for 5 da ys PO; SHOULD STOP TAKING ATORVASTATIN WHILE ON PAXLOVID nitroglycerin 0.4 mg sublingual Q5M ondansetron HCl 4 mg PO Q8H PRN 10 days pantoprazole 40 mg PO DAILY 30 days sennosides (senna) 8.6 mg PO DAILY PRN 30 days Symbicort 160-4.5 mcg/actuation (budesonide-formoterol) 2 puffs PO BID NS valacyclovir 2,000 mg (2 x 1 gram) PO BID 1 day valacyclovir 2,000 mg (2 x 1 gram) PO BID 1 day varenicline 1 mg PO BID 28 days varenicline 0.5 mg PO BID 3 days Do you need a note to return to daycare/school/sports/work: No HPI COPD HPI Details 52 years old, female smoker with COPD co mes back for follow-up after 6 months. Works at a [employer] office. She has bipolar disorder and is supposed to be on anti psychotic an antidepressive meds. Tells me that she is not taking any meds . ( I do not believe it Smoking 1 pack of cigarettes a day. Has frequent cough and dry hacking. Seen at an urgent care a few weeks ago. They told her to continue using Symbicort and also given levalbuterol for p.r.n. use. Patient does want to try something to help her cutting down on smoking. She has tried Chantix in the past. PFSH Medical History Menopausal and postmenopausal disorder CAD (coronary artery disease) NSTEMI (non-ST elevated myocardial infarction) Lumbar degenerative disc disease Asthma-COPD overlap syndrome Asthma Overweight (BMI 25.0-29.9) Pure hypercholesterolemia Anxiety Bipolar affective disorder, currently depressed, moderate Fibromyalgia Obesity (BMI 30-39.9) Smoker Surgical History Hx of colonoscopy History of esophagogastroduodenoscopy (EGD) History of cardiac catheterization Family History Mother Liver cancer Father No problems noted. Other Mental health problem Substance abuse Social History Housing: Apartment Alcohol intake: former Patient Tobacco Use Status: Current everyday Tobacco user Tobacco use type: Cigarette Cigarette Packs Per Day: 1 e-Cigarette/Vaping Use: Never Used Second Hand Smoke Exposure: Yes service: No Current occupational status: employed Cognitive needs: No Hearing needs: No Vision needs: No Review of Systems Const All systems reviewed & are unremarkable except as noted in HPI and below Eyes Reports no additional complaints ENT Reports sore throat (Scratchy feeling in the throat most of the time) Card Denies chest pain, Denies irregular heart rhythm and Denies leg edema Resp Reports as per HPI GI Reports no additional complaints Reports no additional complaints Musc Reports no additional complaints Skin/Breast Reports system reviewed and no additional complaints, except as documented Neuro Reports no additional complaints Psych Reports anxiety and Reports depression (Being treated with fluoxetine) Physical Exam Vital Signs: Last Vital Signs Pulse 107 H 04/29/23 15:58 Resp 18 04/29/23 15:58 BP 138/78 04/29/23 15:58 Pulse Ox 96 04/29/23 15:58 Oxygen Delivery Method Room Air 04/29/23 15:58 BMI result Body Mass Index 27.1 Const Other: Quite anxious and somewhat Weepy at this time General: comfortable, no acute distress, alert and awake Orientation/consciousness: patient oriented x3 HEENT Head: Yes normal to inspection General nose exam: No nasal polyps present and No nasal discharge present Face and sinus: Yes sinuses nontender Mouth: oropharynx normal Throat: Yes posterior oropharynx normal Eyes General: appearance normal, both eyes and all related structures Neck Neck: Yes normal visual inspection, Yes no lymphadenopathy, Yes trachea midline and Yes no JVD Thyroid: Thyroid normal Chest Chest palpation & inspection: normal inspection of the chest, normal palpation of entire chest wall and no tenderness Resp Other: Percussion note resonant. Does have equal breath sounds on both sides. A FEW WHEEZES OVER THE LEFT UPPER CHEST. NO CREPITATIONS ARE HEARD. Cardio Palpation: normal PMI Rate: regular rate Rhythm: regular rhythm Heart sounds: no gallops and no murmurs Peripheral pulses: Peripheral pulses 2+ throughout GI Palpation (GI): Soft to palpation, nontender, No hepatosplenomegaly present and no masses Auscultation: normal bowel sounds Back/Spine/Pelvis Thoracic/Lumbar Spine: thoracic and lumbar spine normal to inspection Skin General skin exam: no rashes or lesions noted Neuro General: patient oriented x3 and no focal motor deficits Cranial nerves: Yes CN's II-XII intact bilaterally Extrem General: Yes normal to inspection, Yes no clubbing, cyanosis or edema and Yes no calf tenderness Psych Appearance: grossly normal and well kempt Speech and movement: Normal speech and movement present Assessment & Plan Assessment & Plan (1) Asthma-COPD overlap syndrome: Comment: Has not been able to perform pulmonary function test, Clinical diagnosis ACO ( Asthma/Copd syndrome ) Remains well controlled with the current regimen . Code(s): J44.9 - Chronic obstructive pulmonary disease, unspecified Plan: [place] : Symbicort 160-4.52 puffs b.i.d. 2 puffs bid And levalbuterol-45 2 puffs Q 6 hours p.r.n.. (2) Cough: Comment: Cough is definitely related to smoking ( smoker,s cough ) Code(s): R05 - Cough Plan: She may use some cough drops p.r.n., no need to use any stronger cough medication, NEEDS TO QUIT SMOKING. (3) Smoker: Comment: Has been a long-time smoker. Continues to smoke 1 pack of cigarettes a day. Discussed options to quit smoking. I think she should try a nicotine patch program , and if that does not work then go to [facility] Code(s): F17.200 - Nicotine dependence, unspecified, uncomplicated Plan Nicotine patch 21 mg daily for 1 month then 14 mg daily then 7 mg daily. Prescription is sent to the pharmacy. She is counseled strongly to quit smoking . Revisit 2 months. She would also be counseled to join the annual lung screening program Coding Level of Care Code Est Pt Level 3 (57063) Diagnoses Asthma-COPD overlap syndrome J44.9 Cough R05 Smoker F17.200
[2023-04-29 15:58] VITALS: BP 138/78; PULSE 107; RESP 18; O2SAT 96; BMI 27.1
== END 2023-04-29 16:13 | disposition home or self-care (01) ==
PROVIDERS: PCP Internal Medicine; Visit Provider Internal Medicine
DX: J44.9 Chronic obstructive pulmonary disease, unspecified (principal); R05.9 Cough, unspecified; F17.200 Nicotine dependence, unspecified, uncomplicated
CPT/HCPCS: 99213

== ENCOUNTER → 2023-04-29 15:52 | Outpatient (BNVA) | payer MEDICARE, MEDICAID, SELFPAY | PROVIDERS: PCP Internal Medicine; Visit Provider Internal Medicine | DX: J44.9 Chronic obstructive pulmonary disease, unspecified (principal); R05.9 Cough, unspecified; F17.210 Nicotine dependence, cigarettes, uncomplicated | CPT/HCPCS: 99212 ==

== ENCOUNTER 2023-06-26 09:33 | Outpatient (AMB) | payer MEDICARE, MEDICAID, SELFPAY ==
--- NOTE | 2023-06-26 09:40 | A.OFFVIS_ITS ---
Vital Signs 06/26/23 09:46 Height 5 ft 3 in Weight 153 lb BMI 27.1 Intake Visit Reasons: O/V left basal joint O.A pain s/p injection Intake Note: Lina 52 yr old female presents today for her follow up visit s/p left basal joint injection from 08/10/22. States injection only helped about 50%. Currently she has limited ROM and is painful to bend at her IP joint. She did have a flare up after injection. Also mentioned she is having left shoulder. Allergies erythromycin base Allergy (Unknown, Verified 06/26/23 09:46) Nausea and Vomiting, Stomach Upset isosorbide Allergy (Unknown, Verified 06/26/23 09:46) Headaches, stomach upset PFSH Medical History Menopausal and postmenopausal disorder CAD (coronary artery disease) NSTEMI (non-ST elevated myocardial infarction) Lumbar degenerative disc disease Asthma-COPD overlap syndrome Asthma Overweight (BMI 25.0-29.9) Pure hypercholesterolemia Anxiety Bipolar affective disorder, currently depressed, moderate Fibromyalgia Obesity (BMI 30-39.9) Smoker Surgical History Hx of colonoscopy History of esophagogastroduodenoscopy (EGD) History of cardiac catheterization Family History Mother Liver cancer Father No problems noted. Other Mental health problem Substance abuse Social History Housing: Apartment Alcohol intake: former Patient Tobacco Use Status: Current everyday Tobacco user Tobacco use type: Cigarette Cigarette Packs Per Day: 1 e-Cigarette/Vaping Use: Never Used Second Hand Smoke Exposure: Yes service: No Current occupational status: employed Cognitive needs: No Hearing needs: No Vision needs: No Physical Exam Vital Signs: BMI result Body Mass Index 27.1 Extrem Other: Evaluation of left Upper Extremity: The patient is alert, oriented, and in no acute distress Neuro: Median, Ulnar, Radial nerves motor and sensory intact and sensation is normal to the tips of all digits Vascular: Cap refill brisk ROM: She can make a fist and extend all her digits No locking or catching Most Tender over the basal joint + CMC grind + shoulder sign Not particularly tender over the 1st dorsal compartment Negative Destinee test bilaterally No tenderness over the MCP joint or A1 ally Radiographs: 3 views of the left hand, with attention to the thumb, were taken and viewed by me today in clinic. They show no fractures or dislocations. There is basal joint arthritis with joint space narrowing, subchondral sclerosis, osteophyte formation, and subluxation. Assessment & Plan Assessment & Plan (1) Arthritis of carpometacarpal (CMC) joint of left thumb: Code(s): M18.12 - Unilateral primary osteoarthritis of first carpometacarpal joint, left hand Category: Medical (2) Hepatitis C: Code(s): B19.20 - Unspecified viral hepatitis C without hepatic coma Category: Medical Qualifiers: Hepatic coma status: without hepatic coma Viral hepatitis chronicity: chronic Qualified Code(s): B18.2 - Chronic viral hepatitis C (3) Atherosclerotic cardiovascular disease: Comment: S/P stenting (MUKESH) of LAD in April 2012 Code(s): I25.10 - Atherosclerotic heart disease of [place] coronary artery without angina pectoris Category: Medical (4) Asthma-COPD overlap syndrome: Comment: Has not been able to perform pulmonary function test, Clinical diagnosis ACO ( Asthma/Copd syndrome ) Remains well controlled with the current regimen . Code(s): J44.9 - Chronic obstructive pulmonary disease, unspecified Category: Medical (5) Bipolar affective disorder, currently depressed, moderate: Comment: She seems fairly stable at this time, but fluctuations in her mental status make her go back to smoking. Code(s): F31.32 - Bipolar disorder, current episode depressed, moderate Category: Medical (6) Fibromyalgia: Code(s): M79.7 - Fibromyalgia Category: Medical Plan Assessment & Plan: 1. Left Basal joint OA, S/P injection Date of injection: 07/31/22 I educated her about this condition We had a long discussion about operative & non-operative treatment options She found only temporary and little relief from her previous injection, and she says this caused her increased pain for 2 days. I had a long discussion with her about the risks and benefits of injections and also concerning surgery, including the recovery timeline and limitations. I also explained that most patients are not happy following this surgery until at least 2-5 months post-operatively on average. She expressed understanding, is very much not in favor of having another injection and would like to proceed with surgery. I discussed activity modification, she understands that after surgery she will not be allowed to pinch against her thumb for about 3 months. I discussed methods of modifying her lifestyle to accommodate for her symptoms, including speaking with her pharmacist for prescription medication to be placed in bottles for people with OA. The risks and benefits of operative treatment were discussed with the patient and the patient wishes to proceed with surgery. These risks include, but are not limited to risk of damage to blood vessels, nerves, tendons, infection, recurrence, incomplete relief of preoperative symptoms, persistent pain, possible need for further surgery and the risks associated with regional blocks and anesthesia. The plan is to take the patient to the operating room sometime in the next few weeks for the following procedures: 1. Left basal joint arthroplasty with LRTI, under general & with a regional block All of the preoperative paperwork including the consent was reviewed today. All the patient's questions were answered. The patient understands that they will be contacted by our linter tender soon to schedule this procedure She denies Diabetes, blood thinners, kidney issues She has asthma, COPD, and CVD. She denies any blood thinners. She will need cardiac & pulmonology clearance prior to surgery. She also has bipolar disorder and will talk to her mental health professional about the fact that she is going to have the surgery. She has Hepatitis C and she may beginning hepatitis C treatment. Please clarify. 2. Right basal joint OA, based on history and PE Will need radiographs to confirm at next appointment Please note that greater than 50 minutes was spent with this patient going over the history, evaluating the patient and radiographs, formulating possible treatment options, discussing them with the patient, and documenting the visit. Scribed for Korin Lowe MD by James Burnett, medical collections representative, on 06/26/23 at 9:50 AM, EST. Orders: Orders XR hand LT min 3V Today M79.642 - Pain in left hand Coding Level of Care Code Est Pt Level 5 (60997) Diagnoses Arthritis of carpometacarpal (CMC) joint of left thumb M18.12 Chronic hepatitis C without hepatic coma B18.2 Hepatic coma status: without hepatic coma Viral hepatitis chronicity: chronic Atherosclerotic cardiovascular disease I25.10 Asthma-COPD overlap syndrome J44.9 Bipolar affective disorder, currently depressed, moderate F31.32 Fibromyalgia M79.7
[2023-06-26 09:46] VITALS: BMI 27.1
== END 2023-06-26 10:31 | disposition home or self-care (01) ==
PROVIDERS: PCP Internal Medicine; Visit Provider Orthopaedic Surgery
DX: M18.12 Unilateral primary osteoarthritis of first carpometacarpal joint, left hand (principal); B18.2 Chronic viral hepatitis C; I25.10 Atherosclerotic heart disease of native coronary artery without angina pectoris; J44.9 Chronic obstructive pulmonary disease, unspecified; F31.32 Bipolar disorder, current episode depressed, moderate; M79.7 Fibromyalgia
CPT/HCPCS: 99215

== ENCOUNTER 2023-06-26 09:33 | Outpatient (REF) | payer MEDICARE, MEDICAID, SELFPAY ==
--- NOTE | ~2023-06-26 | XR_ITS ---
EXAMINATION: XR HAND, LEFT CLINICAL INFORMATION: Pain in left hand, attention basal joint of the thumb. COMPARISON: None available. TECHNIQUE: Four views of the left hand. FINDINGS: Advanced degenerative changes in the first carpometacarpal joint with joint space, hypertrophic change and periarticular cystic lucencies, particularly at the base of the first metacarpal. Bone mineralization is normal. Small ossicle distal to the ulnar styloid could represent prior fracture of indeterminate age versus chronic/degenerative calcification. Please note that lateral view of the hand did not include the digits and recommend dedicated lateral view of the digits at no charge to the patient. When this image is obtained, an addendum will be dictated. XR/XR hand LT min 3V IMPRESSION: Advanced degenerative changes in the first carpometacarpal joint with cystic lucencies at the base of the first metacarpal. Correlation with clinical exam recommended to determine further management if there is clinical concern for fracture.
== END 2023-06-26 09:34 | disposition home or self-care (01) ==
LOC: HO.HOSX 09:33
PROVIDERS: PCP Internal Medicine; Visit Provider Orthopaedic Surgery
DX: M18.12 Unilateral primary osteoarthritis of first carpometacarpal joint, left hand (principal); B18.2 Chronic viral hepatitis C; I25.10 Atherosclerotic heart disease of native coronary artery without angina pectoris; J44.9 Chronic obstructive pulmonary disease, unspecified; M79.7 Fibromyalgia
CPT/HCPCS: 73130; 99212

== ENCOUNTER 2023-07-01 15:41 | Outpatient (AMB) | payer MEDICARE, MEDICAID, SELFPAY ==
--- NOTE | 2023-07-01 15:45 | MHC.OFFVIS ---
Vital Signs 07/01/23 15:46 Height 5 ft 3 in Weight 147 lb 11.355 oz BMI 26.2 BP 102/60 Blood Pressure Location Lt brachial Position Sitting Pulse 93 Pulse Source Pulse Oximeter Pulse Oximetry (%) 100 Oxygen Delivery Method Room Air Intake Visit Reasons: COPD Intake Note: pt is here for pre-op clearance for hand surgery August 11 at by Amy Lowe MD Allergies erythromycin base Allergy (Unknown, Verified 07/01/23 16:01) Nausea and Vomiting, Stomach Upset isosorbide Allergy (Unknown, Verified 07/01/23 16:01) Headaches, stomach upset Medication List - Last Reconciled 07/01/23 by Bridget Morrell MD aspirin (Adult Low Dose Aspirin) 81 mg PO DAILY atorvastatin 80 mg PO BEDTIME clonazepam 1 mg PO BID docusate sodium (Colace) 200 mg (2 x 100 mg) PO BEDTIME fluoxetine 40 mg PO DAILY levalbuterol tartrate 45 mcg/actuation 1 puff inhalation Q4-6H PRN 30 days lurasidone (Latuda) 60 mg PO BEDTIME mometasone-formoterol 200-5 mcg/actuation (Dulera) 2 puffs inhalation BID 30 days nitroglycerin 0.4 mg sublingual Q5M ondansetron HCl 4 mg PO Q8H PRN 10 days pantoprazole 40 mg PO DAILY 30 days sennosides (senna) 8.6 mg PO DAILY PRN 30 days valacyclovir 2,000 mg (2 x 1 gram) PO BID 1 day Do you need a note to return to daycare/school/sports/work: No HPI HPI COPD: Details: This 52 years old very pleasant female is here for pulmonary follow-up and for preop clearance. She has lost significant amount of weight with the help of Ozempic , which she is not using now and still losing weight. Breathing majano she is very good with except for only occasional cough related to smoking. Unfortunately she is smoking 15 cigarettes a day. She denies any wheezing attacks and she can go around without having any dyspnea. PFSH Medical History Menopausal and postmenopausal disorder CAD (coronary artery disease) NSTEMI (non-ST elevated myocardial infarction) Lumbar degenerative disc disease Asthma-COPD overlap syndrome Asthma Overweight (BMI 25.0-29.9) Pure hypercholesterolemia Anxiety Bipolar affective disorder, currently depressed, moderate Fibromyalgia Obesity (BMI 30-39.9) Smoker Surgical History Hx of colonoscopy History of esophagogastroduodenoscopy (EGD) History of cardiac catheterization Family History Mother Liver cancer Father No problems noted. Other Mental health problem Substance abuse Social History Housing: Apartment Alcohol intake: former Patient Tobacco Use Status: Current everyday Tobacco user Tobacco use type: Cigarette Cigarette Packs Per Day: 1 e-Cigarette/Vaping Use: Never Used Second Hand Smoke Exposure: Yes service: No Current occupational status: employed Cognitive needs: No Hearing needs: No Vision needs: No Review of Systems Const All systems reviewed & are unremarkable except as noted in HPI and below Eyes Reports no additional complaints ENT Reports sore throat (Scratchy feeling in the throat most of the time) Card Denies chest pain, Denies irregular heart rhythm and Denies leg edema Resp Reports as per HPI GI Reports no additional complaints Reports no additional complaints Musc Reports no additional complaints Skin/Breast Reports system reviewed and no additional complaints, except as documented Neuro Reports no additional complaints Psych Reports anxiety and Reports depression (Being treated with fluoxetine) Physical Exam Vital Signs: Last Vital Signs Pulse 93 07/01/23 15:46 BP 102/60 07/01/23 15:46 Pulse Ox 100 07/01/23 15:46 Oxygen Delivery Method Room Air 07/01/23 15:46 BMI result Body Mass Index 26.2 Const Other: Quite anxious and somewhat Weepy at this time General: comfortable, no acute distress, alert and awake Orientation/consciousness: patient oriented x3 HEENT Head: Yes normal to inspection General nose exam: No nasal polyps present and No nasal discharge present Face and sinus: Yes sinuses nontender Mouth: oropharynx normal Throat: Yes posterior oropharynx normal Eyes General: appearance normal, both eyes and all related structures Neck Neck: Yes normal visual inspection, Yes no lymphadenopathy, Yes trachea midline and Yes no JVD Thyroid: Thyroid normal Chest Chest palpation & inspection: normal inspection of the chest, normal palpation of entire chest wall and no tenderness Resp Other: Percussion note resonant. Does have equal breath sounds on both sides. No wheezes crepitations or rhonchi are heard today. Cardio Palpation: normal PMI Rate: regular rate Rhythm: regular rhythm Heart sounds: no gallops and no murmurs Peripheral pulses: Peripheral pulses 2+ throughout GI Palpation (GI): Soft to palpation, nontender, No hepatosplenomegaly present and no masses Auscultation: normal bowel sounds Back/Spine/Pelvis Thoracic/Lumbar Spine: thoracic and lumbar spine normal to inspection Skin General skin exam: no rashes or lesions noted Neuro General: patient oriented x3 and no focal motor deficits Cranial nerves: Yes CN's II-XII intact bilaterally Extrem General: Yes normal to inspection, Yes no clubbing, cyanosis or edema and Yes no calf tenderness Psych Appearance: grossly normal and well kempt Speech and movement: Normal speech and movement present Office Procedures Spirometry Testing Spirometry Comments: In office spirometry completed. Results to Dr Morrell. 30587- Spirometry Results Reviewed Results Reviewed: SPIROMETRY PERFORMED IN THE OFFICE. FVC 100% FEV1 82%. FEV1/FVC RATIO 66. FEF 25-75 49% Assessment & Plan Assessment & Plan (1) Asthma-COPD overlap syndrome: Comment: Has not been able to perform pulmonary function test, * Spirometry performed in the office today , Shows mild obstructive airway disorder Clinical diagnosis ACO ( Asthma/Copd syndrome ) Remains well controlled with the current regimen . Code(s): J44.9 - Chronic obstructive pulmonary disease, unspecified Category: Medical Plan: Continue Dulera 200-4.52 puffs b.i.d. Use levalbuterol 2 puffs Q 4-6 hours p.r.n. (2) Smoker: Comment: Has been a long-time smoker. Continues to smoke 1 pack of cigarettes a day. Now down to 15 cigarettes a day. Code(s): F17.200 - Nicotine dependence, unspecified, uncomplicated Category: Social Hx Plan: Discussed options to quit smoking. I think she should try a nicotine patch program . She is agreeable and I will prescribe nicotine patch 21 mg daily. Plan FAR PREOP CLEARANCE IS CONCERNED SHE HAS NO CONTRAINDICATION TO PLANNED SURGERY. I DO NOT FORESEE ANY RESPIRATORY PROBLEMS . IF SHE DEVELOPS ANY COUGH OR WHEEZING SHE CAN BE TREATED WITH THE AN UPDRAFT TREATMENT WITH ALBUTEROL SOLUTION . Orders: Orders AMB Spirometry Testing Today J44.9 - Chronic obstructive pulmonary disease, unspecified Medications: New nicotine 1 patch transdermal Q24H 28 days 28 ea 2RF QUIT SMOKING Coding Level of Care Code Est Pt Level 4 (87905) Diagnoses Asthma-COPD overlap syndrome J44.9 Smoker F17.200 CPT Codes Spirometry - CPT: 68134- Spirometry ([id number])
[2023-07-01 15:46] VITALS: BP 102/60; PULSE 93; O2SAT 100; BMI 26.2
== END 2023-07-01 16:17 | disposition home or self-care (01) ==
PROVIDERS: PCP Internal Medicine; Visit Provider Internal Medicine
DX: J44.9 Chronic obstructive pulmonary disease, unspecified (principal)
CPT/HCPCS: 94010; 99214

== ENCOUNTER → 2023-07-01 15:41 | Outpatient (BNVA) | payer MEDICARE, MEDICAID, SELFPAY | PROVIDERS: PCP Internal Medicine; Visit Provider Internal Medicine | DX: J44.9 Chronic obstructive pulmonary disease, unspecified (principal); F17.210 Nicotine dependence, cigarettes, uncomplicated | CPT/HCPCS: 94010; 99212 ==

== ENCOUNTER 2023-07-16 12:18 | Outpatient (AMB) | payer MEDICARE, MEDICAID, SELFPAY ==
--- NOTE | 2023-07-16 12:31 | A.OFFVIS_ITS ---
Vital Signs 07/16/23 12:32 Height 5 ft 3 in Weight 138 lb 0.15 oz BMI 24.4 BP 110/60 Blood Pressure Location Lt brachial Position Sitting Pulse 65 Intake Visit Reasons: Preop- 08/11 surgery Network Mgr Required: No Accompanied by: Self / Same As Patient Allergies erythromycin base Allergy (Unknown, Verified 07/01/23 16:01) Nausea and Vomiting, Stomach Upset isosorbide Allergy (Unknown, Verified 07/01/23 16:01) Headaches, stomach upset Medication List - Last Reconciled 07/16/23 by Rafy Dawn MD clonazepam 1 mg PO BID fluoxetine 40 mg PO DAILY levalbuterol tartrate 45 mcg/actuation 1 puff inhalation Q4-6H PRN 30 days lurasidone (Latuda) 60 mg PO BEDTIME mometasone-formoterol 200-5 mcg/actuation (Dulera) 2 puffs inhalation BID 30 days nicotine 1 patch transdermal Q24H 28 days nitroglycerin 0.4 mg sublingual Q5M sennosides (senna) 8.6 mg PO DAILY PRN 30 days valacyclovir 2,000 mg (2 x 1 gram) PO BID 1 day HPI Comments Details: Lina returns for follow-up regarding coronary artery disease. She also needs preoperative evaluation for hand surgery but patient states she has decided not to proceed. Otherwise, intermittently seen over the last few years. Last appointment was in 2021. To recall, she has history of coronary artery disease and NSTEMI from 2012. At that time, she had a bare metal stent in LAD. She has no longer taking any aspirin or statins. She states that she has been compliant with her diet and also been physically very active and has lost lot of weight. Otherwise, still gets some random chest pains at various times. Sometimes at rest and sometimes during activity. Unclear etiology. She is in fact had this for quite some time. Unfortunately, she is still smoking. PFSH Medical History Menopausal and postmenopausal disorder CAD (coronary artery disease) NSTEMI (non-ST elevated myocardial infarction) Lumbar degenerative disc disease Asthma-COPD overlap syndrome Asthma Overweight (BMI 25.0-29.9) Pure hypercholesterolemia Anxiety Bipolar affective disorder, currently depressed, moderate Fibromyalgia Obesity (BMI 30-39.9) Smoker Surgical History Hx of colonoscopy History of esophagogastroduodenoscopy (EGD) History of cardiac catheterization Family History Mother Liver cancer Father No problems noted. Other Mental health problem Substance abuse Social History Housing: Apartment Alcohol intake: former Patient Tobacco Use Status: Current everyday Tobacco user Tobacco use type: Cigarette Cigarette Packs Per Day: 1 e-Cigarette/Vaping Use: Never Used Second Hand Smoke Exposure: Yes service: No Current occupational status: employed Cognitive needs: No Hearing needs: No Vision needs: No Review of Systems Const Denies chills, Denies fatigue, Denies fever(s), Denies frequent falls, Denies weakness, Denies weight gain and Denies weight loss ENT Denies dizziness Card Reports chest pain, Denies leg edema, Denies lightheadedness, Reports palpitations, Reports dyspnea and Reports dyspnea on exertion Resp Denies cough, Reports dyspnea and Reports dyspnea on exertion GI Denies hematochezia Musc Denies abnormal gait, Denies muscle weakness, Denies numbness, Denies radiating pain into limb and Denies tingling Neuro Denies abnormal gait, Denies dizziness, Denies frequent falls, Denies numbness, Denies tingling and Denies weakness Endo Denies fatigue and Reports palpitations Physical Exam Vital Signs: Last Vital Signs Pulse 65 07/16/23 12:32 BP 110/60 07/16/23 12:32 BMI result Body Mass Index 24.4 Const General: comfortable and no acute distress Orientation/consciousness: patient oriented x3 HEENT Other: Unremarkable Head: Yes normal to inspection Neck Neck: Yes normal visual inspection Chest Chest palpation & inspection: normal inspection of the chest Resp Auscultation: clear to auscultation bilaterally Cardio Palpation: normal PMI Heart sounds: S1 normal heart sound present, S2 normal heart sound present, no gallops, no murmurs and no rubs GI Palpation (GI): Soft to palpation Back/Spine/Pelvis Other: unremarkable Skin General skin exam: no rashes or lesions noted Neuro General: patient oriented x3 Extrem General: Yes normal to inspection Psych Mental Status: mental status grossly normal Office Procedures EKG Details: EKG with sinus rhythm at 65/Min; sinus arrhythmia; no significant ST-T changes and otherwise unremarkable[place]. [id number], Complete Assessment & Plan Assessment & Plan (1) Atherosclerotic cardiovascular disease: Comment: S/P stenting (MUKESH) of LAD in April 2012 Code(s): I25.10 - Atherosclerotic heart disease of [place] coronary artery without angina pectoris Category: Medical (2) Smoker: Comment: Has been a long-time smoker. Continues to smoke 1 pack of cigarettes a day. Now down to 15 cigarettes a day. Code(s): F17.200 - Nicotine dependence, unspecified, uncomplicated Category: Social Hx (3) Preoperative cardiovascular examination: Code(s): Z01.810 - Encounter for preprocedural cardiovascular examination Category: Medical Plan In 2012, she had bare metal stent to mid LAD. Repeat catheterization in 2012 showed RCA spasm. In the last stress test from 2021, no clear ischemia. Reversible distal inferior defect noted but normal contractility and hence thought to be rather artifactual. Prior to this, she had another stress test in 2015 without ischemic findings. Echocardiogram with normal LVEF and otherwise unremarkable. With regard to continued chest pains, has some atypical characteristics but she has also had during exertion. Hence angina still possible. We can repeat her cardiac workup. With regard to medications, recommend that she goes back on aspirin and statins but not clear if she will adhere or not. She can do her labs again as she states that she is lost lot of weight. There is already an order from PCP. Smoking cessation. With regard to the hand surgery, she has decided not to proceed. Any case, she will need about testing before proceeding. Orders: Orders CA echo transthoracic complete Today I25.10 - Atherosclerotic heart disease of [place] coronary artery without angina pectoris CA lexiscan stress w marlena Today I20.9 - Angina pectoris, unspecified, I25.10 - Atherosclerotic heart disease of [place] coronary artery without angina pectoris NM cardiolite stress test Today I25.10 - Atherosclerotic heart disease of [place] coronary artery without angina pectoris, R07.2 - Precordial pain Coding Level of Care Code Est Pt Level 4 (08181) Diagnoses Atherosclerotic cardiovascular disease I25.10 Smoker F17.200 Preoperative cardiovascular examination Z01.810 CPT Codes EKG - CPT: 46859-[id number], Complete ([id number])
[2023-07-16 12:32] VITALS: BP 110/60; PULSE 65; BMI 24.4
== END 2023-07-16 13:22 | disposition home or self-care (01) ==
PROVIDERS: PCP Internal Medicine; Visit Provider Internal Medicine
DX: I25.10 Atherosclerotic heart disease of native coronary artery without angina pectoris (principal); F17.200 Nicotine dependence, unspecified, uncomplicated; Z01.810 Encounter for preprocedural cardiovascular examination
CPT/HCPCS: 93010; 99214

== ENCOUNTER → 2023-07-16 12:18 | Outpatient (BNVA) | payer MEDICARE, MEDICAID, SELFPAY | PROVIDERS: PCP Internal Medicine; Visit Provider Internal Medicine ==

== ENCOUNTER 2023-07-16 13:06 | Outpatient (REF) | payer MEDICARE, MEDICAID, SELFPAY ==
[2023-07-16 13:17] LABS: MANUAL DIFF FLAG NO
[2023-07-16 14:07] LABS: Appearance Urine Clear; Color Urine Yellow; Glucose Urine UA Negative (Negative); Leukocyte Esterase Urine Negative (Negative); Nitrite Urine Negative (Negative); Urine Blood Negative (Negative); Urine Ketones Negative (Negative); Urine Protein Negative (Neg-Trace)
[2023-07-16 14:09] LABS: Basophils Absolute Auto 0.1 X10*3/uL (0.0-0.2); Eosinophils Absolute Auto 0.2 X10*3/uL (0.0-0.4); Eosinophils Percent Auto 1.9 % (0-4); Hematocrit 42.9 % (37.0-47.0); Hemoglobin 14.5 g/dl (12.0-16.0); Imm Gran Abs Auto 0.02 X10*3/uL (0.00-0.03); Imm Gran Pct Auto 0.3 % (0.0-0.4); Lymphocytes Absolute Auto 3.3 X10*3/uL (1.2-4.9); Lymphocytes Percent Auto 41.1 % (20-40); Mean Corpuscular HGB Conc 33.8 g/dl (31.0-35.0); Mean Corpuscular Hemoglobin 32.4 pg (27.0-33.0); Mean Corpuscular Volume 95.8 fL (80.0-98.0); Monocytes Absolute Auto 0.5 X10*3/uL (0.1-1.2); Monocytes Percent Auto 6.8 % (2-11); Neutrophils Absolute Auto 3.9 x10*3/uL (2.0-8.3); Neutrophils Percent Auto 48.9 % (45-73); Platelet Count 209 X10*3/uL (160-400); Red Blood Count 4.48 X10*6/uL (4.20-5.50); Red Cell Distribution Width 13.4 % (11.0-16.0)
[2023-07-16 15:27] LABS: Alanine Aminotransferase 15 U/L (0-31); Albumin Level 4.4 g/dL (3.5-5.0); Alkaline Phosphatase 50 U/L (39-117); Anion Gap 15 (12-20); Aspartate Amino Transferase 16 U/L (5-31); Bilirubin Total 0.3 mg/dL (0.0-1.0); Blood Urea Nitrogen 10 mg/dL (9-16); Calcium 9.7 mg/dL (8.4-10.2); Carbon Dioxide 26 mmol/L (22-29); Chloride 107 mmol/L (96-108); Cholesterol 198 mg/dL (<200); Estimated Glomerular Filt Rate > 60; Glucose Fasting 84 mg/dL (60-99); HDL Cholesterol 47 mg/dL (>40); LDL Cholesterol Calculated 134 mg/dL (<100); Potassium 3.9 mmol/L (3.3-5.1); Sodium 144 mmol/L (135-145); Total Protein 7.4 g/dL (6.5-8.0); Triglycerides 87 mg/dL (<150)
[2023-07-16 15:30] LABS: Vitamin D 25-OH Total 27.6 ng/mL (>30)
== END 2023-07-16 13:07 | disposition home or self-care (01) ==
LOC: HO.LAB 13:06
PROVIDERS: PCP Internal Medicine; Visit Provider Internal Medicine
DX: Z01.810 Encounter for preprocedural cardiovascular examination (principal); I25.10 Atherosclerotic heart disease of native coronary artery without angina pectoris; F17.210 Nicotine dependence, cigarettes, uncomplicated; I25.2 Old myocardial infarction; I10 Essential (primary) hypertension; E78.00 Pure hypercholesterolemia, unspecified; R30.0 Dysuria; E55.9 Vitamin D deficiency, unspecified
CPT/HCPCS: 36415; 80053; 80061; 81003; 82306; 84443; 85025; 93005; 99212

== ENCOUNTER 2023-08-01 11:58 | Outpatient (AMB) | payer MEDICARE, MEDICAID, SELFPAY ==
--- NOTE | 2023-08-01 12:01 | MHC.PC.OV ---
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: No Allergies erythromycin base Allergy (Unknown, Verified 08/01/23 12:47) Nausea and Vomiting, Stomach Upset isosorbide Allergy (Unknown, Verified 08/01/23 12:47) Headaches, stomach upset Medication List - Last Reconciled 08/01/23 by Nathan Lang MD atorvastatin 80 mg PO BEDTIME 90 days clonazepam 1 mg PO BID fluoxetine 40 mg PO DAILY levalbuterol tartrate 45 mcg/actuation 1 puff inhalation Q4-6H PRN 30 days lurasidone (Latuda) 60 mg PO BEDTIME meloxicam 15 mg PO DAILY PRN 30 days mometasone-formoterol 200-5 mcg/actuation (Dulera) 2 puffs inhalation BID 30 days nicotine 1 patch transdermal Q24H 28 days nitroglycerin 0.4 mg sublingual Q5M sennosides (senna) 8.6 mg PO DAILY PRN 30 days tramadol 50 mg PO Q8H PRN 7 days valacyclovir 2,000 mg (2 x 1 gram) PO BID 1 day Tobacco use date assessed: 08/01/23 Dental Screening Dental Screen Date: 08/01/23 HPI left hand pain HPI Details Patient comes in today for her follow up visit States that she was initially scheduled today for a preop clearance in preparation for hand surgery - has arthritis of her left thumb joint States that she ended up canceling her surgery as she is scared of going through with the surgery Is considering seeking a second opinion with specialists in [place] for her hand She was seen by cardiology last month and is being scheduled for cardiac work ups (echo and stress test) States that she is still experiencing on and off chest pains randomly and not necessarily related to activity or exertion She admits to stopping her Atorvastatin a few months ago - feels that she has lost a lot of weight lately and that she has been eating much healthier and that her cholesterol levels should be a lot better than before without needing to take cholesterol Rx She denies any headaches or dizziness Denies any increased SOB No nausea/vomiting, no abdominal pain No change in bowel habits noted Needs her Nitrogylcerin tablets Rx refilled Had her follow up labs done a few weeks ago - to discuss her results [facility] Medical History Menopausal and postmenopausal disorder CAD (coronary artery disease) NSTEMI (non-ST elevated myocardial infarction) Lumbar degenerative disc disease Asthma-COPD overlap syndrome Asthma Overweight (BMI 25.0-29.9) Pure hypercholesterolemia Anxiety Bipolar affective disorder, currently depressed, moderate Fibromyalgia Obesity (BMI 30-39.9) Smoker Surgical History Hx of colonoscopy History of esophagogastroduodenoscopy (EGD) History of cardiac catheterization Family History Mother Liver cancer Father No problems noted. Other Mental health problem Substance abuse Social History Housing: Apartment Alcohol intake: former Patient Tobacco Use Status: Current everyday Tobacco user Tobacco use type: Cigarette Cigarette Packs Per Day: 1 e-Cigarette/Vaping Use: Never Used Second Hand Smoke Exposure: Yes service: No Current occupational status: employed Cognitive needs: No Hearing needs: No Vision needs: No Questionnaire PHQ-9 Over the last 2 weeks, how often have you been bothered by any of the following problems? 1. Little interest or pleasure in doing things: several days 2. Feeling down, depressed, or hopeless: several days 3. Trouble falling or staying asleep, or sleeping too much: several days 4. Feeling tired or having little energy: several days 5. Poor appetite or overeating: several days 6. Feeling bad about yourself - or that you are a failure or have let yourself or your family down: not at all 7. Trouble concentrating on things, such as reading the newspaper or watching television: not at all 8. Moving or speaking so slowly that other people could have noticed. Or the opposite - being so fidgety or restless that you have been moving around a lot more than usual: not at all 9. Thoughts that you would be better off or of hurting yourself in some way: not at all Total score: 5 Depression Screening Interpretation: Positive Depression Screening Follow-up: Existing condition and In treatment Depression Screening Done: Yes 30768 - PHQ-9 Billing: Yes Source: Developed by Drs. Sarkis Peterson, Leidy Padilla, Ayo White and colleagues, with an educational flip from [employer]. Thrive Questionnaire Date Thrive assessed: 08/01/23 I am a: Patient What is your living situation today?: I have a steady place to live Within the past 12 months, did the food you bought not last and you didn't have the money to get more?: Never true Within the past 12 months, did you worry whether your food would run out before you got money to buy more?: Never true Do you have trouble paying for medicines?: No Do you have trouble getting transportation to medical appointments?: No Do you have trouble paying your heating and electricity bill?: No Do you have trouble taking care of your child, family member or friend?: No Do you have trouble with day-to-day activities such as bathing, preparing meals, shopping, managing finances, etc.?: No Are you currently unemployed and looking for a job?: No Are you interested in more education?: No Please select the resources that you would like help with: None Currently or been in a relationship where the following occur: no concerns reported THRIVE Score: 0 AUDIT C Alcohol Use Questionnaire (AUDIT-C) 1. How often do you have a drink containing alcohol?: Never 3. How often do you have six or more drinks on one occasion?: Never Total Score: 0 Score Reviewed/Action Taken: Yes JUAN-7 AMB Questionnaire JUAN-7 Date JUAN - 7 assessed: 10/05/22 Source: Developed by Drs. Sarkis Peterson, Leidy Padilla, Ayo White and colleagues, with an educational flip from [employer]. Review of Systems Const Denies chills, Reports fatigue, Denies fever(s) and Denies headache(s) ENT Denies dysphagia, Denies dizziness, Denies otalgia, Denies headache(s), Reports neck pain (especially over the left side), Denies odynophagia and Denies sore throat Card Reports chest pain (on and off - see HPI), Denies palpitations and Denies dyspnea Resp Denies chest congestion, Denies cough, Denies dyspnea and Denies wheezing GI Denies abdominal pain, Denies hematochezia, Denies constipation, Denies dysphagia, Denies heartburn, Denies diarrhea, Denies nausea, Denies odynophagia and Denies vomiting Denies difficulty voiding, Denies nocturia, Denies dysuria and Denies urinary urgency Musc Reports back pain, Reports arthralgias (left shoulder; increased pain of both thumbs lately, taco on L thumb) and Reports neck pain (especially over the left side) Skin/Breast Denies rash Neuro Denies dizziness and Denies headache(s) Psych Reports anxiety and Reports depression Endo Reports fatigue and Denies palpitations Aller/Immun Denies wheezing Physical exam (Primary Care) Vital Signs: Last Vital Signs Pulse 94 08/01/23 12:02 BP 104/72 08/01/23 12:02 Pulse Ox 96 08/01/23 12:02 Oxygen Delivery Method Room Air 08/01/23 12:02 BMI result Body Mass Index 23.7 Tobacco/Smoking Status: Tobacco use Status Tobacco use date assessed 08/01/23 08/01/23 12:07 Patient Tobacco Use Status Current everyday Tobacco 08/01/23 12:07 Tobacco use type Cigarette 08/01/23 12:07 e-Cigarette/Vaping Use Never Used 08/01/23 12:07 Depression Screening Interpretation: Positive Depression Screening Follow-up: Existing condition and In treatment Thrive Assessment: Date of Thrive Assessment Date Thrive assessed 10/05/22 08/01/23 12:07 Currently or been in a relationship where the following occur: no concerns reported Const General: no acute distress and alert HENMT Ears: TM's normal bilaterally and EAC's normal Throat: Yes posterior oropharynx normal and Yes tonsils normal (no TP congestion) Neck Neck: Yes no lymphadenopathy and Yes tender (over the cervical spine) Thyroid: Thyroid normal Resp Auscultation: clear to auscultation bilaterally, no rales and no wheezes Cardio Rate: regular rate Rhythm: regular rhythm Heart sounds: no murmurs GI Palpation (GI): Soft to palpation and nontender Auscultation: normal bowel sounds General: Yes no CVA tenderness Back/Spine/Pelvis Back: no CVA tenderness Cervical Spine: cervical muscular tenderness (over the left side, involving the left trapezius), pain with cervical ROM, cervical spasm (left side) and Cervical spine tenderness Thoracic/Lumbar Spine: lumbar spinal tenderness Skin Rashes: no rashes Extrem General: Yes no clubbing, cyanosis or edema Right upper extremity: shoulder/upper arm Details: tenderness Location: of the A-C joint and abnormal ROM Details: held in an abnormal fashion and pain with active ROM Left upper extremity: hand Details: tenderness Location: of the thumb Location: involving the entire digit Results Reviewed Results Reviewed: Laboratory Tests 07/16/23 07/16/23 13:12 13:16 WBC 8.0 Hgb 14.5 Hct 42.9 Plt Count 209 Sodium 144 Potassium 3.9 Creatinine 0.78 Estimated GFR > 60 Fasting Glucose 84 Calcium 9.7 AST 16 ALT 15 Triglycerides 87 Cholesterol 198 LDL Cholesterol, Calc 134 H HDL Cholesterol 47 25-OH Vitamin D Total 27.6 L TSH 1.70 Ur Specific Hughes 1.010 Urine Protein Negative Urine Glucose (UA) Negative Urine Blood Negative Urine Nitrite Negative Ur Leukocyte Esterase Negative Assessment and Plan Assessment & Plan (1) Atherosclerotic cardiovascular disease: Comment: S/P stenting (MUKESH) of LAD in April 2012 Code(s): I25.10 - Atherosclerotic heart disease of [place] coronary artery without angina pectoris Plan: She was on Aspirin 81 mg QD (has been advised that she needs lifelong antiplatelet Tx with ASA) but she stopped taking this a while back - she was advised by cardiology recently to start back on low dose Aspirin and have advised her of the same due to her Hx of CAD and cardiac stenting Continue NTG 0.4 mg SL PRN for chest pains - Rx refilled She is currently being scheduled for repeat cardiac work ups, including stress testing and echocardiogram Follow up with cardiology as scheduled (2) Pure hypercholesterolemia: Code(s): E78.00 - Pure hypercholesterolemia, unspecified Plan: Results of her labs done a few weeks ago reviewed and discussed with patient - she is advised that her cholesterol levels have increased from previous despite her recent weight loss and attempts to stay on a healthy diet - her LDL has actually increased now to 134 mg/dl Patient is looking for an explanation as to how this is possible - is advised that IF she is really adhering strictly to a healthy diet, then the only explanation here is genetics Reinforced low cholesterol diet Will have her start BACK on Atorvastatin 80 mg QD - Rx sent Will recheck her labs in 3 months for follow-up (3) Asthma-COPD overlap syndrome: Comment: Has not been able to perform pulmonary function test, * Spirometry performed in the office today , Shows mild obstructive airway disorder Clinical diagnosis ACO ( Asthma/Copd syndrome ) Remains well controlled with the current regimen . Code(s): J44.9 - Chronic obstructive pulmonary disease, unspecified Plan: Continue Dulera 200-5 mcg 2 inhalations BID and Levalbuterol inhaler 1 to 2 inhalations Q 6 hours PRN She is reminded again that quitting smoking completely can help as well with her respiratory symptoms Follow up with pulmonary as scheduled (4) Arthritis of carpometacarpal (CMC) joint of left thumb: Code(s): M18.12 - Unilateral primary osteoarthritis of first carpometacarpal joint, left hand Plan: She was scheduled for orthopedic surgery of her L thumb joint recently but she canceled her surgery Follow-up with orthopedics as scheduled although she is considering seeking a second opinion with specialists in [place] regarding this (5) Lumbar degenerative disc disease: Code(s): M51.36 - Other intervertebral disc degeneration, lumbar region Plan: Lumbar spine MRI done back in 2017 revealed multilevel facet arthritis and disc degeneration Reinforced activity and weight lifting restrictions Continue Cyclobenzaprine 10 mg TID PRN Follow up with [facility] as scheduled (6) Hepatitis C: Code(s): B19.20 - Unspecified viral hepatitis C without hepatic coma Qualifiers: Viral hepatitis chronicity: chronic Hepatic coma status: without hepatic coma Qualified Code(s): B18.2 - Chronic viral hepatitis C Plan: S/P treatment with Mavyret 100-40 mg 3 tablets QD Her hepatitis C viral load came back negative /undetectable when last checked in 2021 Follow up with GI as scheduled (7) Anxiety: Code(s): F41.9 - Anxiety disorder, unspecified Plan: Continue Clonazepam 1 mg BID PRN Follow up with psychiatry as scheduled (8) Bipolar affective disorder, currently depressed, moderate: Comment: She seems fairly stable at this time, but fluctuations in her mental status make her go back to smoking. Code(s): F31.32 - Bipolar disorder, current episode depressed, moderate Plan: Continue Latuda 60 mg Q HS and Fluoxetine 40 mg QD Follow up with psychiatry as scheduled (9) Smoker: Comment: Has been a long-time smoker. Continues to smoke 1 pack of cigarettes a day. Now down to 15 cigarettes a day. Code(s): F17.200 - Nicotine dependence, unspecified, uncomplicated Plan: Counseled again on complete smoking cessation Took Chantix to help her quit smoking in the past but is now on Nicotine patches (10) Overweight (BMI 25.0-29.9): Code(s): E66.3 - Overweight Plan: Reinforced diet/exercise as tolerated/lose weight Plan To return as scheduled in October 2023 for her annual physical examination Orders: Orders Complete Blood Count Auto Diff 10/27/23 D64.9 - Anemia, unspecified, Z00.00 - Encounter for general adult medical examination without abnormal findings Comprehensive [place]. Panel Fast 10/27/23 E78.00 - Pure hypercholesterolemia, unspecified, Z00.00 - Encounter for general adult medical examination without abnormal findings Vitamin D 25-OH Total 10/27/23 E55.9 - Vitamin D deficiency, unspecified, Z00.00 - Encounter for general adult medical examination without abnormal findings TSH reflex Free T4 10/27/23 E78.00 - Pure hypercholesterolemia, unspecified, Z00.00 - Encounter for general adult medical examination without abnormal findings UA CC w/rflx Micro + Cult 10/27/23 R30.0 - Dysuria, Z00.00 - Encounter for general adult medical examination without abnormal findings Lipid Panel 10/27/23 E78.00 - Pure hypercholesterolemia, unspecified, Z00.00 - Encounter for general adult medical examination without abnormal findings Medications: Changed From atorvastatin 80 mg PO BEDTIME 90 tabs 3RF To atorvastatin 80 mg PO BEDTIME 90 days 90 tabs 3RF Refilled nitroglycerin OVERDUE FOR APPT. PLEASE CALL [phone] TO SCHEDULE FOLLOW UP FOR 2022 SO WE CAN CONTINUE REFILLING YOUR MEDICATIONS. 0.4 mg sublingual Q5M 25 tabs 1RF atorvastatin 80 mg PO BEDTIME 90 days 90 tabs 3RF Coding Level of Care Code Est Pt Level 4 (23075) Complex EM visit Add On G2211 Diagnoses Atherosclerotic cardiovascular disease I25.10 Pure hypercholesterolemia E78.00 Asthma-COPD overlap syndrome J44.9 Arthritis of carpometacarpal (CMC) joint of left thumb M18.12 Lumbar degenerative disc disease M51.36 Chronic hepatitis C without hepatic coma B18.2 Viral hepatitis chronicity: chronic Hepatic coma status: without hepatic coma Anxiety F41.9 Bipolar affective disorder, currently depressed, moderate F31.32 Smoker F17.200 Overweight (BMI 25.0-29.9) E66.3
[2023-08-01 12:02] VITALS: BP 104/72; PULSE 94; O2SAT 96; BMI 23.7
== END 2023-08-01 15:13 | disposition home or self-care (01) ==
PROVIDERS: PCP Internal Medicine; Visit Provider Internal Medicine
DX: M18.12 Unilateral primary osteoarthritis of first carpometacarpal joint, left hand (principal); J44.9 Chronic obstructive pulmonary disease, unspecified; F31.32 Bipolar disorder, current episode depressed, moderate; B18.2 Chronic viral hepatitis C; I25.10 Atherosclerotic heart disease of native coronary artery without angina pectoris; F17.210 Nicotine dependence, cigarettes, uncomplicated; E78.00 Pure hypercholesterolemia, unspecified; M51.36 Other intervertebral disc degeneration, lumbar region; F41.9 Anxiety disorder, unspecified
CPT/HCPCS: 99214; G2211

== ENCOUNTER 2023-08-07 09:45 | Outpatient (REF) | payer MEDICARE, MEDICAID, SELFPAY ==
--- NOTE | ~2023-08-07 | XR_ITS ---
EXAMINATION: XR HAND, RIGHT CLINICAL INFORMATION: Pain in right hand, attention basal joint of the right thumb. COMPARISON: 06/26/2023. TECHNIQUE: PA, lateral, and oblique views of the right hand. FINDINGS: Radiopaque marker placed by technologist to indicate the area of concern as indicated by the patient along the shaft of the first metacarpal. Mild degenerative changes in the first metacarpophalangeal joint with focal soft tissue swelling. No displaced fracture of the shaft of the first metacarpal appreciated. Redemonstration of a small ossicle distal to the ulnar styloid, possibly related to prior avulsion versus chronic/degenerative calcification. Ulnar minus variance. Advanced degenerative changes in the first carpometacarpal joint with joint space narrowing and hypertrophic change. Subtle periarticular cystic lucencies. XR/XR hand RT min 3V IMPRESSION: 1. Mild degenerative changes in the first metacarpophalangeal joint with focal soft tissue swelling. No displaced fracture of the shaft of the first metacarpal appreciated. 2. Advanced degenerative changes in the first carpometacarpal joint. 3. Recommend follow up imaging in 10-14 days if fracture is suspected.
== END 2023-08-07 09:46 | disposition home or self-care (01) ==
LOC: HO.HOSX 09:45
PROVIDERS: Visit Provider Orthopaedic Surgery
DX: M18.0 Bilateral primary osteoarthritis of first carpometacarpal joints (principal); M79.7 Fibromyalgia
CPT/HCPCS: 20600; 73130; 99212; J1010

== ENCOUNTER 2023-08-07 14:34 | Outpatient (AMB) | payer MEDICARE, MEDICAID, SELFPAY ==
--- NOTE | 2023-08-07 14:38 | A.OFFVIS_ITS ---
Vital Signs 08/07/23 14:47 Height 5 ft 3 in Weight 134 lb BMI 23.7 Intake Visit Reasons: O/V req left CMC injection Intake Note: Lina 52 yr old female presents today for her follow up visit s/p left basal joint injection from 08/10/22. Last seen with Dr Lowe on 06/26/23 where options were discussed for surgical intervention for her right hand, however patient did not move forward with surgery and would like to have injection repeat. She expresses that her last injection gave her about 2 to 3 months of relief, however she started to have a lot of pain. Allergies erythromycin base Allergy (Unknown, Verified 08/07/23 14:46) Nausea and Vomiting, Stomach Upset isosorbide Allergy (Unknown, Verified 08/07/23 14:46) Headaches, stomach upset HPI HPI O/V req left CMC injection : Details: Lina is a 52 year old right hand dominant woman with left basal joint arthritis. She presents with complaints of worsening pain in her thumb. At her last appointment she wanted to proceed with a basal joint arthroplasty, but she has since changed her mind and is requesting a repeat injection today. She also complains of pain at the base of her right thumb. She says she cannot take NSAIDs for pain relief due to a heart condition. 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 PFSH Medical History Menopausal and postmenopausal disorder CAD (coronary artery disease) NSTEMI (non-ST elevated myocardial infarction) Lumbar degenerative disc disease Asthma-COPD overlap syndrome Asthma Overweight (BMI 25.0-29.9) Pure hypercholesterolemia Anxiety Bipolar affective disorder, currently depressed, moderate Fibromyalgia Obesity (BMI 30-39.9) Smoker Surgical History Hx of colonoscopy History of esophagogastroduodenoscopy (EGD) History of cardiac catheterization Family History Mother Liver cancer Father No problems noted. Other Mental health problem Substance abuse Social History Housing: Apartment Alcohol intake: former Patient Tobacco Use Status: Current everyday Tobacco user Tobacco use type: Cigarette Cigarette Packs Per Day: 1 e-Cigarette/Vaping Use: Never Used Second Hand Smoke Exposure: Yes service: No Current occupational status: employed Cognitive needs: No Hearing needs: No Vision needs: No Physical Exam Vital Signs: BMI result Body Mass Index 23.7 Extrem Other: Evaluation of left Upper Extremity: The patient is alert, oriented, and in no acute distress Neuro: Median, Ulnar, Radial nerves motor and sensory intact and sensation is normal to the tips of all digits Vascular: Cap refill brisk ROM: She can make a fist and extend all her digits No locking or catching Most Tender over the basal joint + CMC grind + shoulder sign Not particularly tender over the 1st dorsal compartment Negative Destinee test bilaterally No tenderness over the MCP joint or A1 ally Radiographs: 3 views of the right hand, with attention to the thumb, were taken and viewed by me today in clinic. They show no fractures or dislocations. There is basal joint arthritis with joint space narrowing, subchondral sclerosis, osteophyte formation, and subluxation. Office Procedures Fracture Care Details: No fracture, injection Fracture Billing Code: Fracture Billing Code Assessment & Plan Assessment & Plan (1) Arthritis of carpometacarpal (CMC) joint of left thumb: Code(s): M18.12 - Unilateral primary osteoarthritis of first carpometacarpal joint, left hand Category: Medical (2) Bipolar affective disorder, currently depressed, moderate: Comment: She seems fairly stable at this time, but fluctuations in her mental status make her go back to smoking. Code(s): F31.32 - Bipolar disorder, current episode depressed, moderate Category: Medical (3) Fibromyalgia: Code(s): M79.7 - Fibromyalgia Category: Medical (4) Arthritis of carpometacarpal (CMC) joint of right thumb: Code(s): M18.11 - Unilateral primary osteoarthritis of first carpometacarpal joint, right hand Category: Medical Plan Assessment & Plan: 1. Left Basal joint OA, S/P injection Date of injection: 07/31/22 I educated her about this condition We had a long discussion about operative & non-operative treatment options She has decided she does not want to proceed with a basal joint arthroplasty, and she would like to proceed with a repeat injection today I discussed activity modification, they should limit or avoid any heavy or repetitive pinching or gripping activities She was fitted for a comfort cool brace to wear with daily activity Injection #1 : The risks and benefits of a steroid injection including but not limited to risk of damage to blood vessels, nerve, tendon, infection, skin bleaching, persistent or worsening pain, and failure to improve symptoms were discussed with the patient and they wish to proceed with the steroid injection. Once consent was obtained the skin over the dorsum of the Left basal joint was sterilely prepped. The joint was then injected with a combination of 1 mL of (40 mg/ml} Depo-Medrol and 1% plain Lidocaine. The patient appears to have tolerated the procedure well and with no complications. She had good early relief before leaving clinic today. She knows that they may not have another steroid injection into this joint for least 4 months. 2. Right basal joint OA I discussed activity modification, they should limit or avoid any heavy or repetitive pinching or gripping activities She was fitted for a comfort cool brace to wear with daily activity She will follow up at next available appointment to discuss a possible steroid injection Scribed for Korin Lowe MD by James Burnett, medical education manager, on 08/07/23 at 3:00 PM, EST. Orders: Orders XR hand RT min 3V Today M79.641 - Pain in right hand Coding Level of Care Code Est Pt Level 3 (94833) Diagnoses Arthritis of carpometacarpal (CMC) joint of left thumb M18.12 Bipolar affective disorder, currently depressed, moderate F31.32 Fibromyalgia M79.7 Arthritis of carpometacarpal (CMC) joint of right thumb M18.11 CPT Codes Fracture Care - Fracture Billing Code: Fracture Billing Code ([id number])
[2023-08-07 14:47] VITALS: BMI 23.7
== END 2023-08-07 15:44 | disposition home or self-care (01) ==
PROVIDERS: PCP Internal Medicine; Visit Provider Orthopaedic Surgery
DX: M18.0 Bilateral primary osteoarthritis of first carpometacarpal joints (principal); F31.32 Bipolar disorder, current episode depressed, moderate; M79.7 Fibromyalgia
CPT/HCPCS: 20600; 99213

== ENCOUNTER → 2023-08-21 07:56 | Outpatient (REF) | payer MEDICARE, MEDICAID, SELFPAY ==
--- NOTE | 2023-08-21 07:58 | CA_ITS ---
Transthoracic Echocardiogram Patient (Last, First, Middle): Lina Gann, Gender: Female Date of : 1970 Age: 53 Procedure Date: 08/21/2023 Procedure Type: Transthoracic Echocardiogram Location: OP Height: 160.02 cm Weight: 58.97 kg BSA: 1.61 m2 Heart Rate: bpm BP: 100 / 70 mmHg Volunteer Recruitment Coordinator: TO Referring MD: Rafy Dawn MD Waste Hand: Greg Anand MD Symptoms: I25.10 - Atherosclerotic heart disease of [place] coronary artery without... Study Quality: Fair ECG Rhythm: Sinus Conclusions: - 1. Low normal LV ejection fraction of 50-55% with regional wall motion abnormality in RCA territory 2. Mild aortic regurgitation 3. Normal RV systolic pressure 4. No gross pericardial effusion Findings Procedure Information The study quality is limited by the patients inability to tolerate the test. Left Ventricle Normal left ventricular cavity size. There is normal left ventricular wall thickness. The left ventricular systolic function is low normal. The visually estimated ejection fraction is between 50-55%. Spectral Doppler is indicative of an impaired relaxation filling pattern. E/E prime ratio is <8, consistent with normal filling pressures. Evidence suggests grade I (mild) diastolic dysfunction. Wall Motion Rest Echo Findings The mid inferior, apical septum, and mid inferoseptal segments are hypokinetic. The basal inferior and basal inferoseptal segments are akinetic. All other scored wall segments showed normal motion. Right Ventricle Normal right ventricular cavity size and systolic function. Atria The left atrium is normal in size. The right atrium is normal in size. Aortic Valve Normal aortic valve structure and function. There is mild calcification of the aortic valve. There is no aortic valve stenosis. There is mild aortic valve regurgitation. Mitral Valve There is mild anterior and posterior mitral leaflet thickening. There is mild anterior and mild posterior mitral annular calcification. There is trace mitral valve regurgitation. There is no mitral valve stenosis. Pulmonic Valve The pulmonic valve is likely normal. Tricuspid Valve Normal tricuspid valve structure. There is trace tricuspid valve regurgitation. The right ventricular systolic pressure is normal. The right ventricular systolic pressure is 20 mmHg. Normal right atrial pressure. There is no evidence of pulmonary hypertension. Great Vessels The pulmonary artery was not well visualized. There is no dilatation of the ascending aorta measuring 2.80 cm. Venous The inferior vena cava is normal in size and collapses greater than 50% with inspiration. Pericardium/Pleural There is no evidence of pericardial effusion. Prior Study Comparison No significant change compared to prior study dated: 08/17/2021. LV systolic function has marginally reduced. Mild aortic regurgitation is noted. Also wall motion abnormality in RCA territory is noted Measurements 2D Linear Measurements IVSd: 1.00 0.6-0.9/0.6-1.0 cm LVIDd: 4.93 3.9-5.3/4.2-5.9 cm LVIDd Index: 3.06 2.4-3.2/2.2-3.1 cm/m2 LVIDs: 3.26 2.0-3.6 cm LVPWd: 0.74 0.7-1.1 cm LA Diam: 3.50 2.7-3.8/3.0-4.0 cm LAIDs Index: 2.17 1.5-2.3 cm/m2 LV Mass: 183.44 67-162/88-224 g LV Mass Index: 113.94 43-95/49-115 g/m2 LVOT Diam: 2.10 3.0+(-)1.3 cm 2D Systolic Function EF 4C: 49.20 >55% EF 2C: 55.60 >55% EF BiP: 52.00 >55% Mitral Valve MV Pk E: 0.54 MV PK A: 0.87 MV Decel Time: 192.00 E/A: 0.60 E'Lateral: 8.70 E'Medial: 7.40 E/E' Med: 7.30 E/E' Lat: 6.20 PHT: 56.00 MVA PHT: 3.93 Decel [place]: 2.82 Aortic Valve AoV Pk Seth: 1.38 AoV Mn Seth: 0.92 AoV VTI: 0.21 AoV Pk Grad: 8.00 Aov Mn Grad: 4.00 BILLY Cont.VTI: 2.39 LVOT LVOT Pk Seth: 0.76 LVOT Mn Seth: 0.49 LVOT VTI: 0.15 LVOT Pk Grad: 2.00 LVOT Mn Grad: 1.00 LVOT Diam: 2.10 LVOT Area: 3.46 Diastolic Function MV Pk E: 0.54 MV Pk A: 0.87 E/A: 0.60 E'Medial: 7.40 E/E' Med: 7.30 E' Laterial: 8.70 E/E' Lat: 6.20 Right Ventricle TAPSE (mm): 19.60 TVS' Seth: 9.68 Tricuspid Valve TR Pk Seth: 2.04 TR Pk Grad: 17.00 RA Press: 3.00 RVSP: 20.00 Great Vessels Aorta Sinus of Valsalva: 3.15 2.0-3.5 cm Ao Asc: 2.80 2.1-3.4 cm Updated in Other Vendor System with Status of Final Greg Anand MD electronically signed on 08/22/2023 8:19:58 AM with status of Final
== END ==
LOC: HO.CARD 07:56
PROVIDERS: PCP Internal Medicine; Visit Provider Internal Medicine
DX: I25.10 Atherosclerotic heart disease of native coronary artery without angina pectoris (principal)
CPT/HCPCS: 93306

== ENCOUNTER → 2023-08-21 07:58 | Outpatient (BNV) | payer MEDICARE, MEDICAID, SELFPAY | PROVIDERS: PCP Internal Medicine; Visit Provider Internal Medicine Cardiovascular Disease | DX: I35.1 Nonrheumatic aortic (valve) insufficiency (principal); I35.8 Other nonrheumatic aortic valve disorders; I34.81 Nonrheumatic mitral (valve) annulus calcification | CPT/HCPCS: 93306 ==

== ENCOUNTER 2023-09-03 09:24 | Outpatient (AMB) | payer OTHER, MEDICARE, MEDICAID, SELFPAY ==
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
[2023-09-03 10:07] VITALS: BP 120/74; PULSE 115; O2SAT 97; BMI 23.7
== END 2023-09-03 13:25 | disposition home or self-care (01) ==
LOC: HO.HMGH 09:24
PROVIDERS: PCP Internal Medicine; Visit Provider Internal Medicine
DX: F41.9 Anxiety disorder, unspecified (principal)
CPT/HCPCS: 99214

== ENCOUNTER 2024-01-15 09:09 | Outpatient (REF) | payer MEDICARE, MEDICAID, OTHER, SELFPAY ==
[2024-01-15 10:33] LABS: MANUAL DIFF FLAG NO
[2024-01-15 11:17] LABS: Appearance Urine Clear; Color Urine Yellow; Glucose Urine UA Negative (Negative); Leukocyte Esterase Urine Negative (Negative); Nitrite Urine Negative (Negative); Specific Gravity - Urine <= 1.005 (1.005-1.025); Urine Blood Negative (Negative); Urine Ketones Negative (Negative); Urine Protein Negative (Neg-Trace)
[2024-01-15 11:17] LABS: Basophils Absolute Auto 0.1 X10*3/uL (0.0-0.2); Basophils Percent Auto 1.1 % (0-2); Eosinophils Absolute Auto 0.2 X10*3/uL (0.0-0.4); Eosinophils Percent Auto 2.1 % (0-4); Hematocrit 41.8 % (37.0-47.0); Hemoglobin 13.9 g/dl (12.0-16.0); Imm Gran Abs Auto 0.03 X10*3/uL (0.00-0.03); Imm Gran Pct Auto 0.3 % (0.0-0.4); Lymphocytes Absolute Auto 4.1 X10*3/uL (1.2-4.9); Lymphocytes Percent Auto 44.3 % (20-40); Mean Corpuscular HGB Conc 33.3 g/dl (31.0-35.0); Mean Corpuscular Hemoglobin 31.5 pg (27.0-33.0); Mean Corpuscular Volume 94.8 fL (80.0-98.0); Monocytes Absolute Auto 0.6 X10*3/uL (0.1-1.2); Monocytes Percent Auto 6.9 % (2-11); Neutrophils Absolute Auto 4.2 x10*3/uL (2.0-8.3); Neutrophils Percent Auto 45.3 % (45-73); Platelet Count 240 X10*3/uL (160-400); Red Blood Count 4.41 X10*6/uL (4.20-5.50); Red Cell Distribution Width 13.1 % (11.0-16.0); White Blood Count 9.3 X10*3/uL (4.8-10.8)
[2024-01-15 11:23] LABS: INTERNATIONAL NORM RATIO 0.9 (0.9-1.1); Prothrombin Time 10.2 SEC (10.9-12.4)
[2024-01-15 12:16] LABS: Alanine Aminotransferase 20 U/L (0-31); Albumin Level 4.5 g/dL (3.5-5.0); Alkaline Phosphatase 53 U/L (39-117); Anion Gap 11 (12-20); Aspartate Amino Transferase 23 U/L (5-31); Bilirubin Total 0.4 mg/dL (0.0-1.0); Blood Urea Nitrogen 11 mg/dL (9-16); Calcium 9.9 mg/dL (8.4-10.2); Carbon Dioxide 29 mmol/L (22-29); Chloride 105 mmol/L (96-108); Cholesterol 212 mg/dL (<200); Estimated Glomerular Filt Rate > 60; Glucose Fasting 96 mg/dL (60-99); HDL Cholesterol 50 mg/dL (>40); LDL Cholesterol Calculated 143 mg/dL (<100); Potassium 4.2 mmol/L (3.3-5.1); Sodium 141 mmol/L (135-145); TSH reflex Free T4 1.47 uIU/mL (0.32-4.0); Total Protein 7.4 g/dL (6.5-8.0); Triglycerides 97 mg/dL (<150); Vitamin D 25-OH Total 24.2 ng/mL (>30)
== END 2024-01-15 09:10 | disposition home or self-care (01) ==
LOC: HO.LAB 09:09
PROVIDERS: PCP Internal Medicine; Referring Provider Internal Medicine; Visit Provider Internal Medicine
DX: Z00.00 Encounter for general adult medical examination without abnormal findings (principal); D64.9 Anemia, unspecified; E78.00 Pure hypercholesterolemia, unspecified; E55.9 Vitamin D deficiency, unspecified; R30.0 Dysuria; R07.2 Precordial pain; I25.10 Atherosclerotic heart disease of native coronary artery without angina pectoris; Z95.5 Presence of coronary angioplasty implant and graft; I25.2 Old myocardial infarction; V89.2XXS Person injured in unspecified motor-vehicle accident, traffic, sequela; R40.20 Unspecified coma
CPT/HCPCS: 36415; 80053; 80061; 81003; 82306; 84443; 85025; 85610; 96127; 99212

== ENCOUNTER 2024-01-15 09:09 | Outpatient (AMB) | payer MEDICARE, MEDICAID, SELFPAY ==
[2024-01-15 09:11] VITALS: BP 126/80; PULSE 100; O2SAT 94; BMI 23.6
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
== END 2024-01-15 10:53 | disposition home or self-care (01) ==
PROVIDERS: PCP Internal Medicine; Visit Provider Internal Medicine
DX: R40.20 Unspecified coma (principal); V89.2XXS Person injured in unspecified motor-vehicle accident, traffic, sequela

== ENCOUNTER 2024-01-15 10:35 | Outpatient (AMB) | payer MEDICARE, MEDICAID, SELFPAY ==
[2024-01-15 10:37] VITALS: BP 120/64; PULSE 71; BMI 23.4
--- NOTE | 2024-01-15 10:37 | MHC.OFFVIS ---
Vital Signs 01/15/24 10:37 Height 5 ft 3 in Weight 132 lb 4.438 oz BMI 23.4 BP 120/64 Blood Pressure Location Lt brachial Position Sitting Pulse 71 Pulse Source Pulse Oximeter Intake Visit Reasons: Follow up Analyst Microbiology Lab Required: No Accompanied by: Self / Same As Patient Allergies erythromycin base Allergy (Unknown, Verified 01/15/24 09:42) Nausea and Vomiting, Stomach Upset isosorbide Allergy (Unknown, Verified 01/15/24 09:42) Headaches, stomach upset Medication List - Last Reconciled 01/15/24 by Rafy Dawn MD aspirin (Adult Low Dose Aspirin) 81 mg PO DAILY atorvastatin 80 mg PO BEDTIME 90 days clonazepam 1 mg PO BID fluoxetine 40 mg PO DAILY levalbuterol tartrate 45 mcg/actuation 1 puff inhalation Q4-6H PRN 30 days lurasidone (Latuda) 60 mg PO BEDTIME meloxicam 15 mg PO DAILY PRN 30 days mometasone-formoterol 200-5 mcg/actuation (Dulera) 2 puffs inhalation BID 30 days nicotine 1 patch transdermal Q24H 28 days nitroglycerin 0.4 mg sublingual Q5M sennosides (senna) 8.6 mg PO DAILY PRN 30 days tramadol 50 mg PO Q8H PRN 7 days valacyclovir 2,000 mg (2 x 1 gram) PO BID 1 day HPI Comments Details: Lina returns for follow-up regarding coronary artery disease. She has been intermittently seen over the last several years. History of coronary disease and NSTEMI from 2012. At that time, bare metal stent in LAD. Lot of compliance issues and during the last appointment, she was not taking any aspirin or statins. However, she has been compliant with diet and hence lost lot of weight. Unfortunately continues to smoke. Random chest pains in no specific patterns. Few days back, apparently 2 of her friends of overdose and that got stressed out. Then it seems she went to [facility] ER for chest discomfort but she was sent home as there was no evidence of ACS. Now she states that she is back on her usual medications but not clear for how long. PFSH Medical History Menopausal and postmenopausal disorder CAD (coronary artery disease) NSTEMI (non-ST elevated myocardial infarction) Lumbar degenerative disc disease Asthma-COPD overlap syndrome Asthma Overweight (BMI 25.0-29.9) Pure hypercholesterolemia Anxiety Bipolar affective disorder, currently depressed, moderate Fibromyalgia Obesity (BMI 30-39.9) Smoker Surgical History Hx of colonoscopy History of esophagogastroduodenoscopy (EGD) History of cardiac catheterization Family History Mother Liver cancer Father No problems noted. Other Mental health problem Substance abuse Social History Housing: Apartment Alcohol intake: former Patient Tobacco Use Status: Current everyday Tobacco user Tobacco use type: Cigarette Cigarette Packs Per Day: 1 Cigarettes Per Day: 15 e-Cigarette/Vaping Use: Never Used Second Hand Smoke Exposure: Yes service: No Current occupational status: employed Cognitive needs: No Hearing needs: No Vision needs: No Review of Systems Const Denies chills, Denies fatigue, Denies fever(s), Denies frequent falls, Denies weakness, Denies weight gain and Denies weight loss ENT Denies dizziness Card Denies chest pain, Denies leg edema, Denies lightheadedness, Denies palpitations, Denies dyspnea and Denies dyspnea on exertion Resp Denies cough, Denies dyspnea and Denies dyspnea on exertion GI Denies hematochezia Musc Denies abnormal gait, Denies muscle weakness, Denies numbness, Denies radiating pain into limb and Denies tingling Neuro Denies abnormal gait, Denies dizziness, Denies frequent falls, Denies numbness, Denies tingling and Denies weakness Endo Denies fatigue and Denies palpitations Physical Exam Vital Signs: Last Vital Signs Pulse 71 01/15/24 10:37 BP 120/64 01/15/24 10:37 BMI result Body Mass Index 23.4 Const General: comfortable and no acute distress Orientation/consciousness: patient oriented x3 HEENT Other: Unremarkable Head: Yes normal to inspection Neck Neck: Yes normal visual inspection Chest Chest palpation & inspection: normal inspection of the chest Resp Auscultation: clear to auscultation bilaterally Cardio Palpation: normal PMI Heart sounds: S1 normal heart sound present, S2 normal heart sound present, no gallops, no murmurs and no rubs GI Palpation (GI): Soft to palpation Back/Spine/Pelvis Other: unremarkable Skin General skin exam: no rashes or lesions noted Neuro General: patient oriented x3 Extrem General: Yes normal to inspection Psych Mental Status: mental status grossly normal Assessment & Plan Assessment & Plan (1) Atherosclerotic cardiovascular disease: Comment: S/P stenting (MUKESH) of LAD in April 2012 Code(s): I25.10 - Atherosclerotic heart disease of [place] coronary artery without angina pectoris Category: Medical (2) Smoker: Comment: Has been a long-time smoker. Continues to smoke 1 pack of cigarettes a day. Now down to 15 cigarettes a day. Code(s): F17.200 - Nicotine dependence, unspecified, uncomplicated Category: Social Hx Plan Cardiac studies reviewed. Echocardiogram-07/2023-low normal LVEF; mid inferior/apical septum, mid inferoseptal hypokinesis. Basal inferior/inferoseptal akinesis. Stress test 2021, no clear ischemia. Reversible distal inferior defect noted but normal contractility and hence thought to be rather artifactual. Prior to this, she had another stress test in 2015 without ischemic findings. In 2012, she had bare metal stent to mid LAD. Repeat catheterization in 2012 showed RCA spasm. In the most recent catheterization from 08/2023, patent LAD stent. Mild irregularities in the circumflex and right coronary artery. Overall, atypical chest pains which can be just related to her smoking. Ok to try SL NTG if that helps. In the recent EKG performed at [facility], EKG with sinus rhythm and no ischemic findings and high sensitivity troponin was also within normal limits. Chest x-ray was unremarkable. Recommendation is to stop smoking completely and be compliant with all medications as much able. Hopefully, she can keep it that way. She was not taking any statins in the past but more recently started taking them and hence will await the labs. With regard to follow-up, we offered appointment but she states she would rather call herself at a future date. Coding Level of Care Code Est Pt Level 4 (31459) Diagnoses Atherosclerotic cardiovascular disease I25.10 Smoker F17.200
== END 2024-01-15 10:54 | disposition home or self-care (01) ==
PROVIDERS: PCP Internal Medicine; Visit Provider Internal Medicine
DX: I25.10 Atherosclerotic heart disease of native coronary artery without angina pectoris (principal); F17.200 Nicotine dependence, unspecified, uncomplicated
CPT/HCPCS: 99214

== ENCOUNTER 2024-03-05 11:15 | Outpatient (AMB) | payer MEDICARE, MEDICAID, SELFPAY ==
[2024-03-05 11:20] VITALS: BP 124/86; PULSE 89; TEMP 36.4; O2SAT 96; BMI 23.7
--- NOTE | 2024-03-05 11:20 | AM.OFFVISMDC ---
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: No Accompanied by: Self / Same As Patient Allergies erythromycin base Allergy (Unknown, Verified 03/05/24 22:06) Nausea and Vomiting, Stomach Upset isosorbide Allergy (Unknown, Verified 03/05/24 22:06) Headaches, stomach upset Medication List - Last Reconciled 03/05/24 by KEVIN Agosto aspirin (Adult Low Dose Aspirin) 81 mg PO DAILY atorvastatin 80 mg PO BEDTIME 90 days clonazepam 1 mg PO BID ezetimibe 10 mg PO DAILY fluoxetine 40 mg PO DAILY levalbuterol tartrate 45 mcg/actuation 1 puff inhalation Q4-6H PRN 30 days lurasidone (Latuda) 60 mg PO BEDTIME meloxicam 15 mg PO DAILY PRN 30 days mometasone-formoterol 200-5 mcg/actuation ([place]ulera) 2 puffs inhalation BID 30 days nicotine 1 patch transdermal Q24H 28 days nitroglycerin 0.4 mg sublingual Q5M sennosides (senna) 8.6 mg PO DAILY PRN 30 days tramadol 50 mg PO Q8H PRN 7 days valacyclovir 2,000 mg (2 x 1 gram) PO BID 1 day Do you need a note to return to daycare/school/sports/work: No HPI SA[facility] HPI Details Dentist: yes Eye: no, lost license, will rescheduled, she is due she will be book an appointment Corrected vision: STI screening: n/a Colonoscopy: Was done 2022, to be repeated in 3 to 4 years mammogram: Refused PHQ-9:19 Flu: no, decline COVID:in the past, not interested Tdap:no The patient is a 53 year old female that is present for an annual wellness visit The patient has past medical history of CAD, loss of consciousness, 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 Patient reports that she is upset that Dr. Lang is not in today because she have few things to address with him. The patient's wants to let him know that the tramadol is not working and she needs something stronger. In addition, she would like to know if Dr. Lang can prescribe her psych meds in 3 months. She states that in order to get her medications from the psychiatrist, she has to see the therapist. She does not want to see the therapist because her therapist keeps changing and she is tired of telling a new person about her situation. She reports that she has not been taking her atorvastatin because she thought that this medication was switched by Cardiology to ezetimibe. Reviewed cardiac report shows recommendations to continue statin. Atorvastatin 80 mg was reordered because the patient said that she got rid of the rest of the medication. She wants chantix -she is currently smoking about a pack/day Today we discussed patient end of life planning; she filled out a new MOLST form and healthcare proxy form We also discussed patient comprehensive care plan which was scan into patient's documents HPI Comments History of Present Illness Details We discussed patient comprehensive care plan which was scanned into patient documents IPPE/AWV: c/o of Annual Wellness Visit, initial visit. Medical / Social History Reviewed Past Medical History Yes . [place] of Care / Care Team list updated Yes . Surgical/Hospitalization History Yes . Current Medications (including OTC and supplements) Yes . Family History Yes . Tobacco Control form Yes . AUDIT-C (Alcohol use) form Yes . Illicit drug use in Social History Yes . Current diagnosis of depression? No Appropriate PHQ2/PHQ9 completed Yes . Data entered by Enterprise Data Architect and reviewed by provider Home Safety Throw rugs? No Grab bars? No Raised toilet seats? No Working smoke detectors? Yes Working carbon monoxide detectors? Yes Data entered by Enterprise Data Architect and reviewed by provider Activities of Daily Living (ADLs) Difficulty bathing or showering? No Difficulty dressing? No Difficulty using the toilet? No Difficulty getting in and out of bed? No Difficulty walking? No Receives help from another person with any of the above tasks? No Instrumental Activities of Daily Living (IADLs) Uses the telephone without help Gets to places out of walking distance without help Goes shopping for groceries without help Prepares own meals without help Does own minor home maintenance without help Does own laundry without help Does own housework without help Manages own money without help Currently takes medications? Yes Takes medication without help End-of-Life Planning Discussed advance directive Yes Advance directive on file Discussed wishes expressed in advance directive agreed to following patient's wishes Fall Risk: Fall History Have you had any falls with injury in the past year? No . Have you had two or more falls in the past year? No . Fall Risk Assessment: No falls in the past year . PFSH Medical History Menopausal and postmenopausal disorder CAD (coronary artery disease) NSTEMI (non-ST elevated myocardial infarction) Lumbar degenerative disc disease Asthma-COPD overlap syndrome Asthma Overweight (BMI 25.0-29.9) Pure hypercholesterolemia Anxiety Bipolar affective disorder, currently depressed, moderate Fibromyalgia Obesity (BMI 30-39.9) Smoker Surgical History Hx of colonoscopy History of esophagogastroduodenoscopy (EGD) History of cardiac catheterization Family History Mother Liver cancer Father No problems noted. Other Mental health problem Substance abuse Social History Housing: Apartment Alcohol intake: former Patient Tobacco Use Status: Current everyday Tobacco user Tobacco use type: Cigarette Cigarette Packs Per Day: 1 Cigarettes Per Day: 15 e-Cigarette/Vaping Use: Never Used Second Hand Smoke Exposure: Yes service: No Current occupational status: employed Cognitive needs: No Hearing needs: No Vision needs: No Questionnaire Medicare Wellness Checkup What gender do you identify with?: female During the past 4 weeks, how much have you been bothered by emotional problems such as feeling anxious, depressed, irritable, sad or downhearted, and blue?: extremely During the past 4 weeks, has your physical & emotional health limited your social activities with family, friends, neighbors, or groups?: not at all During the past 4 weeks, how much bodily pain have you generally had?: severe pain During the past 4 weeks, was someone available to help you if you needed & wanted help?: yes, some During the past 4 weeks, what was the hardest physical activity you could do for at least 2 minutes?: light Can you get to places out of walking distance without help? (For eg., can you travel alone on buses, taxis or drive your car?): Yes Can you go shopping for groceries or clothes without someone's help?: Yes Can you prepare your own meals?: Yes Can you do your housework without help?: No Because of any health problems, do you need the help of another person with your personal care needs such as eating, bathing, dressing or getting around the house?: No Can you handle your own money without help?: Yes During the past 4 weeks, how would you rate your health in general?: fair During the past 4 weeks how have things been going for you?: pretty bad Are you having difficulties driving your car?: no Do you always fasten your seat belt when you are in a car?: yes, usually During past 4 weeks, have you been bothered by the following: never: Falling or dizzy when standing up, Sexual problems?, Trouble eating well?, Teeth or denture problems? and Problems using the telephone? and often: Tiredness or fatigue? Are you afraid of falling?: No Are you a smoker?: yes, and I might quit During the past 4 weeks, how many drinks of wine, beer, or other alcoholic beverages did you have?: no alcohol at all Do you exercise for about 20 minutes 3 or more times a week?: yes, most of the time Have you been given information to help with the following?: yes: Hazards in your house that might hurt you? and yes: Keeping track of your medications? How often do you have trouble taking medicines the way you have been told to take them?: I always take medicine as prescribed How confident are you that you can control & manage most of your health problems?: not very confident What is your race?: White Mini Mental State Exam (MMSE) Orientation What is the (year) (season) (date) (day) (month)?: year, season, date, day and month Where are we (state) (county) (town or city) (hospital) (floor)?: state, county, town or city, hospital/clinic and floor Score Score: 10 Activity of Daily Living Bathing - sponge bath, tub bath or shower: receives no assistance (gets in/out by self, if usual bathing means Dressing - getting clothes from closets & drawers, including inner/outer garments & fasteners.: gets clothes & gets completely dressed without help Toileting - going to the 'toilet room' for urine/bowel elimination & cleaning self/arranging clothes: goes to toilet room, cleans self, arranges clothes without help Transfer: moves in & out of bed and chair without help (may use support object) Continence: controls urination/bowel movements completely by self Feeding: feeds self without help Total Score: 0 Information obtained from: patient Using telephone: independent Traveling: independent Shopping: independent Preparing meals: independent Housework: needs assistance Taking medicine: independent Managing money: independent PHQ-9 Over the last 2 weeks, how often have you been bothered by any of the following problems? 1. Little interest or pleasure in doing things: more than half the days 2. Feeling down, depressed, or hopeless: more than half the days 3. Trouble falling or staying asleep, or sleeping too much: nearly every day 4. Feeling tired or having little energy: nearly every day 5. Poor appetite or overeating: more than half the days 6. Feeling bad about yourself - or that you are a failure or have let yourself or your family down: nearly every day 7. Trouble concentrating on things, such as reading the newspaper or watching television: nearly every day 8. Moving or speaking so slowly that other people could have noticed. Or the opposite - being so fidgety or restless that you have been moving around a lot more than usual: several days 9. Thoughts that you would be better off or of hurting yourself in some way: not at all Total score: 19 Depression Screening Interpretation: Positive Depression Screening Follow-up: Existing condition and In treatment Depression Screening Done: Yes 62817 - PHQ-9 Billing: Yes Source: Developed by Drs. Sarkis Peterson, Leidy Padilla, Ayo White and colleagues, with an educational flip from [employer]. PHQ-2/PHQ-9 PHQ-2 Over the last 2 weeks, how often have you been bothered by any of the following problems? 1. Little interest or pleasure in doing things: more than half the days 2. Feeling down, depressed, or hopeless: more than half the days Total score: 4 If score is 3 or greater, continue 3. Trouble falling or staying asleep, or sleeping too much: nearly every day 4. Feeling tired or having little energy: nearly every day 5. Poor appetite or overeating: more than half the days 6. Feeling bad about yourself - or that you are a failure or have let yourself or your family down: nearly every day 7. Trouble concentrating on things, such as reading the newspaper or watching television: nearly every day 8. Moving or speaking so slowly that other people could have noticed. Or the opposite - being so fidgety or restless that you have been moving around a lot more than usual: several days 9. Thoughts that you would be better off or of hurting yourself in some way: not at all Total score: 19 10. If you checked off any problems, how difficult have those problems made it for you to do your work, take care of things at home, or get along with other people?: somewhat difficult 0-4 None-Minimal, 5-9 Mild, 10-14 Moderate, 15-19 Moderately Severe, 20-27 Severe Source: Developed by Drs. Sarkis Peterson, Leidy Padilla, Ayo White and colleagues, with an educational flip from [employer]. Thrive Questionnaire Date Thrive assessed: 03/05/24 I am a: Patient What is your living situation today?: I have a steady place to live Within the past 12 months, did the food you bought not last and you didn't have the money to get more?: Never true Within the past 12 months, did you worry whether your food would run out before you got money to buy more?: Never true Do you have trouble paying for medicines?: No Do you have trouble getting transportation to medical appointments?: No Do you have trouble paying your heating and electricity bill?: No Do you have trouble taking care of your child, family member or friend?: No Do you have trouble with day-to-day activities such as bathing, preparing meals, shopping, managing finances, etc.?: No Are you currently unemployed and looking for a job?: No Are you interested in more education?: No Please select the resources that you would like help with: None Currently or been in a relationship where the following occur: No concerns reported THRIVE Score: 0 JUAN-7 AMB Questionnaire JUAN-7 Date JUAN - 7 assessed: 03/05/24 Feeling nervous, anxious, or on edge: 0 = Not at all Not being able to stop or control worryin = Not at all Worrying too much about different things: 0 = Not at all Trouble relaxin = Not at all Being so restless that it is hard to sit still: 0 = Not at all Becoming easily annoyed or irritable: 0 = Not at all Feeling afraid as if something awful might happen: 0 = Not at all Total JUAN-7 score (0-4 normal; 5-9 mild; 10-14 moderate; 15-21 severe): 0 Source: Developed by Drs. Sarkis Peterson, Leidy Padilla, Ayo White and colleagues, with an educational flip from [employer]. JUAN-7 Assessment Billing JUAN-7 Assessment Tool: JUAN-7 Assessment 89135 Review of Systems Const Details: Denies chills, Denies fatigue, Denies fever(s), Denies headache(s) and Denies weakness HEENT Denies change in vision, Denies dizziness, Denies headache(s), Denies hearing loss, Denies nasal congestion, Denies sinus pain, Denies sinus pressure and Denies sore throat Card Denies chest pain, Denies lightheadedness, Denies dyspnea and Denies other (palpitations) Resp Denies cough, Denies dyspnea and Denies wheezing GI Denies abdominal pain, Denies melena, Denies hematochezia, Denies change in bowel habits, Denies dyspepsia and Denies nausea Denies hematuria and Denies dysuria Musc Denies abnormal gait, Denies myalgias, reports bilateral wrist pain and weakness, Denies numbness and Denies tingling Skin/Breast Denies rash, Denies unusual bruising and Denies wounds Neuro Denies abnormal gait, Denies dizziness, Denies headache(s), Denies memory loss, Denies numbness, Denies Sensory deficit (Neuro), Denies tingling and Denies weakness Psych Reports recurrent anxiety, reports recurrent depression and Denies memory loss Physical Exam Vital Signs: Last Vital Signs Temp 97.6 F 03/05/24 11:20 Pulse 89 03/05/24 11:20 BP 124/86 03/05/24 11:20 Pulse Ox 96 03/05/24 11:20 Oxygen Delivery Method Room Air 03/05/24 11:20 BMI result Body Mass Index 23.7 Const Other: Hearing screening Whisper test-pass Balance Romberg-normal Tandem walk test-pass Walk-and turned test-pass Rise from sit to stand-pass General: anxious Orientation/consciousness: patient oriented x3 Limitations: no limitations HEENT Head: Yes normal to inspection Eyes Other: vision screening- General: appearance normal, both eyes and all related structures Pupils: Equal, round and reactive pupils present Resp Effort & Inspection: normal respiratory effort Auscultation: clear to auscultation bilaterally Cardio Rate: regular rate Rhythm: regular rhythm Heart sounds: S1 normal heart sound present and S2 normal heart sound present GI Inspection: Yes normal to inspection Auscultation: normal bowel sounds Other: urinary incontinence? General: Yes no CVA tenderness Back/Spine/Pelvis Back: no CVA tenderness Neuro Other: balance Romberg- tandem walk test- walk-in turned test- rise from sit to stand- General: patient oriented x3 Cranial nerves: Yes Equal, round and reactive pupils present Results Reviewed Results Reviewed: Laboratory Tests 01/15/24 01/15/24 10:30 10:32 WBC 9.3 RBC 4.41 Hgb 13.9 Hct 41.8 Plt Count 240 Sodium 141 Potassium 4.2 Chloride 105 BUN 11 Creatinine 0.76 Estimated GFR > 60 Fasting Glucose 96 AST 23 ALT 20 Alkaline Phosphatase 53 Triglycerides 97 Cholesterol 212 H LDL Cholesterol, Calc 143 H HDL Cholesterol 50 25-OH Vitamin D Total 24.2 L TSH 1.47 Urine Color Yellow Urine Appearance Clear Urine pH 7.0 Ur Specific [place] <= 1.005 Urine Protein Negative Urine Glucose (UA) Negative Urine Ketones Negative Urine Blood Negative Urine Nitrite Negative Ur Leukocyte Esterase Negative Assessment & Plan Assessment & Plan (1) Medicare annual wellness visit, initial: Code(s): Z00.00 - Encounter for general adult medical examination without abnormal findings Plan: The [place] of care was reviewed the patient The patient filled out a new healthcare proxy/MOLST form-scanned into he documents The patient has been refusing mammogram. She had her colonscopy done in 2022 with recommendations to repeat in 3-4 years. She declines the flu vaccine (2) CAD (coronary artery disease): Code(s): I25.10 - Atherosclerotic heart disease of [place] coronary artery without angina pectoris Qualifiers: Coronary Disease-Associated Artery/Lesion type: [place] artery [place] vs. transplanted heart: [place] heart Associated angina: without angina Qualified Code(s): I25.10 - Atherosclerotic heart disease of [place] coronary artery without angina pectoris Plan: Patient reports that she has not been taking atorvastatin 80 mg. She thought that the medication was switched to ezetimibe 10 by cardiology. Reports that she got rid of the rest of the atorvastatin. The patient was refilled. Continue atorvastatin 80mg daily and ezetimibe 10 mg daily. Continue aspirin 81 mg daily Follow up with Cardiology as scheduled (3) Asthma: Comment: Patient probably has mild to moderate degree of asthma/chronic bronchitis. Will prescribe a 1 course of azithromycin at this time. Will get pulmonary function test, and see her after that. Depending upon the results of PFT will decide if she needs maintenance regimen with ICS/LABA or LAMA agents. Code(s): J45.909 - Unspecified asthma, uncomplicated Qualifiers: Asthma complication type: unspecified Asthma persistence: persistent Asthma severity: moderate Qualified Code(s): J45.40 - Moderate persistent asthma, uncomplicated Plan: continue levalbuterol fartate 45 mcg i puff inhalation 4-6H prn, mometasone-formoterol 200-5 mcg 2 puffs BID Follow up with pulmonology as scheduled/as needed (4) Pure hypercholesterolemia: Code(s): E78.00 - Pure hypercholesterolemia, unspecified Plan: Continue atorvastatin 80 mg daily and ezetimibe 10 mg daily Reinforced a diet low in cholesterol (5) Anxiety: Code(s): F41.9 - Anxiety disorder, unspecified Plan: Continue fluoxetine 40 mg daily and clonazepam 1 mg b.i.d. Follow up with Psychiatry as scheduled (6) Bipolar affective disorder, currently depressed, moderate: Comment: She seems fairly stable at this time, but fluctuations in her mental status make her go back to smoking. Code(s): F31.32 - Bipolar disorder, current episode depressed, moderate Plan: Continue lurasidone 60 mg bedtime and fluoxetine 40 mg daily Follow up with Psychiatry (7) Smoker: Comment: Has been a long-time smoker. Continues to smoke 1 pack of cigarettes a day. Now down to 15 cigarettes a day. Code(s): F17.200 - Nicotine dependence, unspecified, uncomplicated Plan: Encouraged smoking cessation Varenicline Dosepak ordered Plan Follow up in three-month; to do prescheduled lab about a week before appointment I personally spent 32 minutes reviewing the chart, caring for the patient and documenting after the visit. Orders: Orders Comprehensive [place]. Panel Fast 3 Months E78.00 - Pure hypercholesterolemia, unspecified, F17.200 - Nicotine dependence, unspecified, uncomplicated, F31.32 - Bipolar disorder, current episode depressed, moderate, I25.10 - Atherosclerotic heart disease of [place] coronary artery without angina pectoris, J45.40 - Moderate persistent asthma, uncomplicated Glucose Fasting 3 Months E78.00 - Pure hypercholesterolemia, unspecified, F17.200 - Nicotine dependence, unspecified, uncomplicated, F31.32 - Bipolar disorder, current episode depressed, moderate, I25.10 - Atherosclerotic heart disease of [place] coronary artery without angina pectoris, J45.40 - Moderate persistent asthma, uncomplicated Lipid Panel 3 Months E78.00 - Pure hypercholesterolemia, unspecified, F17.200 - Nicotine dependence, unspecified, uncomplicated, F31.32 - Bipolar disorder, current episode depressed, moderate, I25.10 - Atherosclerotic heart disease of [place] coronary artery without angina pectoris, J45.40 - Moderate persistent asthma, uncomplicated Complete Blood Count Auto Diff 3 Months E78.00 - Pure hypercholesterolemia, unspecified, F17.200 - Nicotine dependence, unspecified, uncomplicated, F31.32 - Bipolar disorder, current episode depressed, moderate, I25.10 - Atherosclerotic heart disease of [place] coronary artery without angina pectoris, J45.40 - Moderate persistent asthma, uncomplicated TSH reflex Free T4 3 Months E78.00 - Pure hypercholesterolemia, unspecified, F17.200 - Nicotine dependence, unspecified, uncomplicated, F31.32 - Bipolar disorder, current episode depressed, moderate, I25.10 - Atherosclerotic heart disease of [place] coronary artery without angina pectoris, J45.40 - Moderate persistent asthma, uncomplicated Vitamin D 25-OH Total 3 Months E78.00 - Pure hypercholesterolemia, unspecified, F17.200 - Nicotine dependence, unspecified, uncomplicated, F31.32 - Bipolar disorder, current episode depressed, moderate, I25.10 - Atherosclerotic heart disease of [place] coronary artery without angina pectoris, J45.40 - Moderate persistent asthma, uncomplicated UA CC w/rflx Micro + Cult 3 Months E78.00 - Pure hypercholesterolemia, unspecified, F17.200 - Nicotine dependence, unspecified, uncomplicated, F31.32 - Bipolar disorder, current episode depressed, moderate, I25.10 - Atherosclerotic heart disease of [place] coronary artery without angina pectoris, J45.40 - Moderate persistent asthma, uncomplicated Medications: New varenicline (Chantix Starting Month Box) PO PER PKG DIR 53 ea 0RF nicotine dependance Refilled atorvastatin 80 mg PO BEDTIME 90 tabs 3RF 90 days Quality Reporting (2019) Depression/Bipolar (159/160/161/177) PHQ-9: Total score: 19 Coding Level of Care Code Medicare First (G0438) Est Pt Level 4 (07326) Diagnoses Medicare annual wellness visit, initial Z00.00 Coronary artery disease involving [place] coronary artery of [place] heart without angina pectoris I25.10 Coronary Disease-Associated Artery/Lesion type: [place] artery [place] vs. transplanted heart: [place] heart Associated angina: without angina Moderate persistent asthma, unspecified whether complicated J45.40 Asthma complication type: unspecified Asthma persistence: persistent Asthma severity: moderate Pure hypercholesterolemia E78.00 Anxiety F41.9 Bipolar affective disorder, currently depressed, moderate F31.32 Smoker F17.200 Additional Codes JUAN-7 Assessment Billing - JUAN-7 Assessment Tool: JUAN-7 Assessment 02718 ([id number]) PHQ-9 - 10093 - PHQ-9 Billing: Yes ([id number]) Advance Care Planning Advance Care Planning discussion: Completed/Scanned Forms completed: MOLST and [facility] care/DNR
== END 2024-03-05 12:08 | disposition home or self-care (01) ==
PROVIDERS: PCP Internal Medicine
DX: Z00.00 Encounter for general adult medical examination without abnormal findings (principal); I25.10 Atherosclerotic heart disease of native coronary artery without angina pectoris; F31.32 Bipolar disorder, current episode depressed, moderate; J45.40 Moderate persistent asthma, uncomplicated; E78.00 Pure hypercholesterolemia, unspecified; F41.9 Anxiety disorder, unspecified; F17.200 Nicotine dependence, unspecified, uncomplicated

== ENCOUNTER → 2024-03-05 11:15 | Outpatient (BNVA) | payer MEDICARE, MEDICAID, OTHER, SELFPAY | PROVIDERS: PCP Internal Medicine | DX: Z00.00 Encounter for general adult medical examination without abnormal findings (principal); I25.10 Atherosclerotic heart disease of native coronary artery without angina pectoris; K57.90 Diverticulosis of intestine, part unspecified, without perforation or abscess without bleeding; E34.51 Complete androgen insensitivity syndrome; J45.40 Moderate persistent asthma, uncomplicated; F17.210 Nicotine dependence, cigarettes, uncomplicated; F41.9 Anxiety disorder, unspecified; F31.32 Bipolar disorder, current episode depressed, moderate | CPT/HCPCS: 96127; 99212 ==

== ENCOUNTER 2024-04-09 10:35 | Outpatient (AMB) | payer MEDICARE, MEDICAID, SELFPAY ==
[2024-04-09 10:45] VITALS: BP 112/62; PULSE 79; O2SAT 95; BMI 23.7
--- NOTE | 2024-04-09 10:45 | A.OFFPC_ITS ---
Vital Signs 04/09/24 10:45 Height 5 ft 3 in Weight 134 lb BMI 23.7 BP 112/62 Blood Pressure Location Rt brachial Position Sitting Pulse 79 Pulse Source Pulse Oximeter Pulse Oximetry (%) 95 Oxygen Delivery Method Room Air Intake Visit Reasons: Pain , f/u Allergies erythromycin base Allergy (Unknown, Verified 04/09/24 10:45) Nausea and Vomiting, Stomach Upset isosorbide Allergy (Unknown, Verified 04/09/24 10:45) Headaches, stomach upset Medication List - Last Reconciled 04/09/24 by Naomie George PA-C aspirin (Adult Low Dose Aspirin) 81 mg PO DAILY atorvastatin 80 mg PO BEDTIME 90 days clonazepam 1 mg PO BID ezetimibe 10 mg PO DAILY fluoxetine 40 mg PO DAILY levalbuterol tartrate 45 mcg/actuation 1 puff inhalation Q4-6H PRN 30 days lurasidone (Latuda) 60 mg PO BEDTIME meloxicam 15 mg PO DAILY PRN mometasone-formoterol 200-5 mcg/actuation (Dulera) 2 puffs inhalation BID 30 days nicotine 1 patch transdermal Q24H 28 days nitroglycerin 0.4 mg sublingual Q5M sennosides (senna) 8.6 mg PO DAILY PRN 30 days tramadol 50 mg PO Q8H PRN 7 days valacyclovir 2,000 mg (2 x 1 gram) PO BID 1 day varenicline tartrate (Chantix Starting Month Box) PO PER PKG DIR Tobacco use date assessed: 04/09/24 Dental Screening Dental Screen Date: 04/09/24 Did you have a dental visit in the last 12 months?: Yes Did you have a dental problem in the last 6 months where you did not have access to dental care?: No Was dental information given to patient?: Patient has dentist HPI Pain , f/u HPI Details 53-year-old female with past medical his tory of fibromyalgia, bipolar disorder, anxiety, hypercholesterolemia, asthma, coronary artery disease last seen by nurse practitioner 03/05/2024 coming in for acute problem. Presenting with severe left hand pain, accompanied by nausea, vomiting, and severe anxiety. She has a documented history of needing surgery due to moderate degenerative changes in her left hand, with the recent x-ray showing no fracture. Her symptoms are exacerbated by increased left hand pain and resultant vomiting, which limits her ability to tolerate analgesics. Anxiety is s ignificantly impacting her mental health, compounded by concerns about upcoming surgery involving significant procedures on her hand. She is seeing her orthopedic provider next week. [facility] Medical History Menopausal and postmenopausal disorder CAD (coronary artery disease) NSTEMI (non-ST elevated myocardial infarction) Lumbar degenerative disc disease Asthma-COPD overlap syndrome Asthma Overweight (BMI 25.0-29.9) Pure hypercholesterolemia Anxiety Bipolar affective disorder, currently depressed, moderate Fibromyalgia Obesity (BMI 30-39.9) Smoker Surgical History Hx of colonoscopy History of esophagogastroduodenoscopy (EGD) History of cardiac catheterization Family History Mother Liver cancer Father No problems noted. Other Mental health problem Substance abuse Social History Housing: Apartment Alcohol intake: former Patient Tobacco Use Status: Current everyday Tobacco user Tobacco use type: Cigarette Cigarette Packs Per Day: 1 Cigarettes Per Day: 15 e-Cigarette/Vaping Use: Never Used Second Hand Smoke Exposure: Yes service: No Current occupational status: employed Cognitive needs: No Hearing needs: No Vision needs: No Questionnaire PHQ-9 Over the last 2 weeks, how often have you been bothered by any of the following problems? 1. Little interest or pleasure in doing things: more than half the days 2. Feeling down, depressed, or hopeless: more than half the days 3. Trouble falling or staying asleep, or sleeping too much: nearly every day 4. Feeling tired or having little energy: nearly every day 5. Poor appetite or overeating: more than half the days 6. Feeling bad about yourself - or that you are a failure or have let yourself or your family down: nearly every day 7. Trouble concentrating on things, such as reading the newspaper or watching television: nearly every day 8. Moving or speaking so slowly that other people could have noticed. Or the opposite - being so fidgety or restless that you have been moving around a lot more than usual: several days 9. Thoughts that you would be better off or of hurting yourself in some way: not at all Total score: 19 Depression Screening Interpretation: Positive Depression Screening Follow-up: Existing condition and In treatment Depression Screening Done: Yes 16942 - PHQ-9 Billing: Yes Source: Developed by Drs. Sarkis Peterson, Leidy Padilla, Ayo White and colleagues, with an educational flip from [employer]. Thrive Questionnaire Date Thrive assessed: 03/05/24 AUDIT C Alcohol Use Questionnaire (AUDIT-C) 1. How often do you have a drink containing alcohol?: Never 3. How often do you have six or more drinks on one occasion?: Never Total Score: 0 Score Reviewed/Action Taken: Yes JUAN-7 AMB Questionnaire JUAN-7 Date JUAN - 7 assessed: 03/05/24 Source: Developed by Drs. Sarkis Peterson, Leidy Padilla, Ayo White and colleagues, with an educational flip from [employer]. Review of Systems Const Denies body aches, Denies chills, Denies fever(s), Denies headache(s) and Denies poor appetite Eyes Reports no additional complaints ENT Denies dizziness and Denies headache(s) Card Denies chest pain, Denies lightheadedness and Denies dyspnea Resp Denies cough and Denies dyspnea GI Denies abdominal pain, Denies constipation, Denies diarrhea, Reports nausea and Reports vomiting Reports no additional complaints Musc Reports as per HPI and Denies abnormal gait Skin/Breast Reports system reviewed and no additional complaints, except as documented Neuro Denies abnormal gait, Denies dizziness and Denies headache(s) Psych Reports no additional complaints Physical exam (Primary Care) Vital Signs: Last Vital Signs Pulse 79 04/09/24 10:45 BP 112/62 04/09/24 10:45 Pulse Ox 95 04/09/24 10:45 Oxygen Delivery Method Room Air 04/09/24 10:45 BMI result Body Mass Index 23.7 Tobacco/Smoking Status: Tobacco use Status Tobacco use date assessed 04/09/24 04/09/24 10:51 Patient Tobacco Use Status Current everyday Tobacco 04/09/24 10:46 Tobacco use type Cigarette 04/09/24 10:46 e-Cigarette/Vaping Use Never Used 04/09/24 10:46 PHQ-9: PHQ-9 Score PHQ-9: Total score 19 04/09/24 11:42 Depression Screening Interpretation: Positive Depression Screening Follow-up: Existing condition and In treatment Thrive Assessment: Date of Thrive Assessment Date Thrive assessed 03/05/24 04/09/24 10:46 Const General: cooperative, healthy appearing, comfortable and no acute distress Orientation/consciousness: patient oriented x3 HENMT Head: Yes normocephalic Ears: hearing grossly normal bilaterally General nose exam: Normal external nose present Eyes General: appearance normal, both eyes and all related structures Conjunctivae: conjunctivae normal Neck Neck: Yes full ROM and Yes no lymphadenopathy Resp Effort & Inspection: normal respiratory effort Auscultation: clear to auscultation bilaterally, no crackles, no rales, no rhonchi and no wheezes Cardio Rate: regular rate Rhythm: regular rhythm Skin General skin exam: no rashes or lesions noted Neuro General: patient oriented x3 Gait exam (Neuro): Normal gait present Extrem General: Yes normal to inspection, Yes full ROM and No edema Psych Affect: normal affect Attitude: cooperative Insight: Good insight present (Psych) Judgement: Good judgement present (Psych) Coding Level of Care Code Est Pt Level 4 (01080) Diagnoses 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 A muscle relaxant has been prescribed to address musculoskeletal discomfort. I have explained the risks associated with Meloxicam in the presence of inadequate food intake. Preparations for imminent surgery include establishment of necessary diagnostics such as blood work and EKG within appropriate timelines preoperatively. Emotional and physical health were both addressed, with clear instructions and educational information provided. Advised patient to avoid the use of tramadol with the use of the muscle relaxer to avoid increased sedation. Also discussed if patient takes medication and vomits to not repeat doses to reduce risk of overdose. Plan Patient was informed and verbally consented to the use of an ambient scribe for clinic note documentation during this visit. This note was constructed using voice recognition software. While every effort has been made to ensure accuracy and ship's pilot, still areas may have been included sometimes these areas may affect the content or meeting of the given symptoms. Total time spent caring for the patient today was 20 minutes. This includes time spent before the visit reviewing the chart, time spent during the visit, and time spent after the visit and documentation. Orders: Orders Complete Blood Count Auto Diff Today Z01.818 - Encounter for other preprocedural examination Comprehensive Met. Panel Today Z01.818 - Encounter for other preprocedural examination ECG 12 lead EKG Today Z01.818 - Encounter for other preprocedural examination Medications: New ondansetron 4 mg PO Q8H 20 tabs 0RF baclofen 5 mg PO DAILY PRN 20 tabs 0RF muscle spasm
== END 2024-04-09 11:23 | disposition home or self-care (01) ==
PROVIDERS: PCP Internal Medicine
DX: M15.8 Other polyosteoarthritis (principal)

== ENCOUNTER → 2024-04-09 10:35 | Outpatient (BNVA) | payer MEDICARE, MEDICAID, SELFPAY | PROVIDERS: PCP Internal Medicine | DX: M15.8 Other polyosteoarthritis (principal) | CPT/HCPCS: 96127; 99212 ==

== ENCOUNTER 2024-06-05 15:26 | Outpatient (AMB) | payer MEDICARE, MEDICAID, SELFPAY ==
[2024-06-05 15:33] VITALS: BP 118/66; PULSE 86; TEMP 36.3; O2SAT 100; BMI 23.3
--- NOTE | 2024-06-05 15:33 | A.OFFPC_ITS ---
Vital Signs 06/05/24 15:33 Height 5 ft 3 in Weight 131 lb 6 oz BMI 23.3 BP 118/66 Blood Pressure Location Lt brachial Position Sitting Pulse 86 Pulse Source Pulse Oximeter Temp 97.3 F Temp Source Temporal Artery Scan Pulse Oximetry (%) 100 Oxygen Delivery Method Room Air Intake Visit Reasons: hld/anxiety [employer] Professional Required: No Accompanied by: Self / Same As Patient Allergies erythromycin base Allergy (Unknown, Verified 06/05/24 15:49) Nausea and Vomiting, Stomach Upset isosorbide Allergy (Unknown, Verified 06/05/24 15:49) Headaches, stomach upset Medication List - Last Reconciled 06/05/24 by Nathan Lang MD aspirin (Adult Low Dose Aspirin) 81 mg PO DAILY atorvastatin 80 mg PO BEDTIME 90 days baclofen 5 mg PO DAILY PRN clonazepam 1 mg PO BID ezetimibe 10 mg PO DAILY fluoxetine 40 mg PO DAILY levalbuterol tartrate 45 mcg/actuation 1 puff inhalation Q4-6H PRN 30 days lurasidone (Latuda) 60 mg PO BEDTIME meloxicam 15 mg PO DAILY PRN mometasone-formoterol 200-5 mcg/actuation (Dulera) 2 puffs inhalation BID 30 days nicotine 1 patch transdermal Q24H 28 days nitroglycerin 0.4 mg sublingual Q5M ondansetron 4 mg PO Q8H sennosides (senna) 8.6 mg PO DAILY PRN 30 days tramadol 50 mg PO Q8H PRN 7 days valacyclovir 2,000 mg (2 x 1 gram) PO BID 1 day varenicline tartrate (Chantix Starting Month Box) PO PER PKG DIR Tobacco use date assessed: 04/09/24 Dental Screening Dental Screen Date: 04/09/24 HPI hld/anxiety HPI Details Patient comes in today for her follow-up visit States that she continues to experience increased anxiety and that she needs her prescriptions refilled today States that she is no longer seeing a therapist/counselor as she feels very frustrated that her therapists seem to keep changing every couple of months States that she cannot stand to keep repeating the same story over and over every time someone new is assigned to her so she stopped going to therapy for her own peace of mind and sanity Feels that she has been doing well on her current medications for a while now and would like to just continue on the same meds for now Adds that she also quit her previous job a few weeks ago as it was getting too stressful for her and she was being accused of some unethical behavior, which she states were completely false and unfounded States that her asthma has also been doing well on her current maintenance inhaler and she hardly has to use her rescue inhaler lately She denies any headaches or dizziness Denies any chest pains, no increased shortness of breath No nausea/vomiting, no abdominal pain No change in bowel habits noted She was not able to get her follow-up labs done prior to her appointment today - states that she will try to get them done [facility] Medical History Menopausal and postmenopausal disorder CAD (coronary artery disease) NSTEMI (non-ST elevated myocardial infarction) Lumbar degenerative disc disease Asthma-COPD overlap syndrome Asthma Overweight (BMI 25.0-29.9) Pure hypercholesterolemia Anxiety Bipolar affective disorder, currently depressed, moderate Fibromyalgia Obesity (BMI 30-39.9) Smoker Surgical History Hx of colonoscopy History of esophagogastroduodenoscopy (EGD) History of cardiac catheterization Family History Mother Liver cancer Father No problems noted. Other Mental health problem Substance abuse Social History Housing: Apartment Alcohol intake: former Patient Tobacco Use Status: Current everyday Tobacco user Tobacco use type: Cigarette Cigarette Packs Per Day: 1 Cigarettes Per Day: 15 e-Cigarette/Vaping Use: Never Used Second Hand Smoke Exposure: Yes service: No Current occupational status: employed Cognitive needs: No Hearing needs: No Vision needs: No Questionnaire PHQ-9 Over the last 2 weeks, how often have you been bothered by any of the following problems? Depression Screening Interpretation: Positive Depression Screening Follow-up: Existing condition and In treatment Depression Screening Done: Yes Source: Developed by Drs. Sarkis Peterson, Leidy Padilla, Ayo White and colleagues, with an educational flip from [employer]. Thrive Questionnaire Date Thrive assessed: 03/05/24 Currently or been in a relationship where the following occur: No concerns reported THRIVE Score: 0 JUAN-7 AMB Questionnaire JUAN-7 Date JUAN - 7 assessed: 03/05/24 Source: Developed by Drs. Sarkis Peterson, Leidy Padilla, Ayo White and colleagues, with an educational flip from [employer]. Review of Systems Const Denies chills, Denies fatigue, Denies fever(s) and Denies headache(s) ENT Denies dysphagia, Denies dizziness, Denies otalgia, Denies headache(s), Denies neck pain, Denies odynophagia and Denies sore throat Card Denies chest pain, Denies palpitations and Denies dyspnea Resp Denies chest congestion, Denies cough, Denies dyspnea and Denies wheezing GI Denies abdominal pain, Denies constipation, Denies dysphagia, Denies heartburn, Denies diarrhea, Denies nausea, Denies odynophagia and Denies vomiting Denies difficulty voiding, Denies nocturia, Denies dysuria and Denies urinary urgency Musc Reports back pain, Reports arthralgias (over the left shoulder; in both thumbs) and Denies neck pain Skin/Breast Denies rash Neuro Denies dizziness and Denies headache(s) Psych Reports anxiety (better controlled on Rx) and Reports depression (controlled on Rx) Endo Denies fatigue and Denies palpitations Aller/Immun Denies wheezing Physical exam (Primary Care) Vital Signs: Last Vital Signs Temp 97.3 F 06/05/24 15:33 Pulse 86 06/05/24 15:33 BP 118/66 06/05/24 15:33 Pulse Ox 100 06/05/24 15:33 Oxygen Delivery Method Room Air 06/05/24 15:33 BMI result Body Mass Index 23.3 Tobacco/Smoking Status: Tobacco use Status Tobacco use date assessed 04/09/24 06/05/24 15:38 Patient Tobacco Use Status Current everyday Tobacco 06/05/24 15:38 Tobacco use type Cigarette 06/05/24 15:38 e-Cigarette/Vaping Use Never Used 06/05/24 15:38 Depression Screening Interpretation: Positive Depression Screening Follow-up: Existing condition and In treatment Thrive Assessment: Date of Thrive Assessment Date Thrive assessed 03/05/24 06/05/24 15:38 Currently or been in a relationship where the following occur: No concerns reported Const General: no acute distress and alert HENMT Ears: TM's normal bilaterally and EAC's normal Throat: Yes posterior oropharynx normal and Yes tonsils normal (no TP congestion) Neck Neck: No lymphadenopathy and Yes tender (over the cervical spine) Thyroid: Thyroid normal Resp Auscultation: clear to auscultation bilaterally, no rales and no wheezes Cardio Rate: regular rate Rhythm: regular rhythm Heart sounds: no murmurs GI Palpation (GI): Soft to palpation and nontender Auscultation: normal bowel sounds General: Yes no CVA tenderness Back/Spine/Pelvis Back: no CVA tenderness Cervical Spine: Cervical spine tenderness (mild) Thoracic/Lumbar Spine: lumbar spinal tenderness Skin Rashes: no rashes Extrem General: Yes no clubbing, cyanosis or edema Right upper extremity: shoulder/upper arm Details: tenderness Location: of the A-C joint and abnormal ROM Details: held in an abnormal fashion and pain with active ROM Left upper extremity: hand Details: tenderness Location: of the thumb Location: involving the entire digit Coding Level of Care Code Est Pt Level 4 (39027) Diagnoses Atherosclerotic cardiovascular disease I25.10 Pure hypercholesterolemia E78.00 Asthma-COPD overlap syndrome J44.9 Arthritis of carpometacarpal (CMC) joint of left thumb M18.12 Degeneration of intervertebral disc of lumbar region with discogenic back pain M51.360 Disc-related pain type: discogenic back pain only Chronic hepatitis C without hepatic coma B18.2 Viral hepatitis chronicity: chronic Hepatic coma status: without hepatic coma Anxiety F41.9 Bipolar affective disorder, currently depressed, moderate F31.32 Smoker F17.200 Assessment & Plan Assessment & Plan (1) Atherosclerotic cardiovascular disease: Comment: S/P stenting (MUKESH) of LAD in April 2012 Code(s): I25.10 - Atherosclerotic heart disease of [place] coronary artery without angina pectoris Category: Medical Plan: Patient needs to be on lifelong antiplatelet Tx with low dose Aspirin due to her Hx of CAD and cardiac stenting (MUKESH to her LAD) in 2012 and has been advised of this a few times by both cardiology and myself but she is currently again NOT taking Aspirin This is again explained to her in detail and have stressed to her the importance of antiplatelet therapy in helping prevent stent thrombosis and ischemic events - patient states that she does not understand why she has to take it even though this has been explained to her in the past (she does not appear to remember any of our past conversations) and more recently by cardiology at her December 2023 appointment with them Continue NTG 0.4 mg SL PRN for chest pains - states that she has not had to take sublingual NTG in a while now She underwent repeat cardiac catheterization last year in 08/2023, which revealed patent LAD stent, with only mild irregularities in the circumflex and right coronary artery She has also been advised to quit smoking completely and to stay on her cholesterol medication (Atorvastatin 80 mg QD) Follow up with cardiology as scheduled (2) Pure hypercholesterolemia: Code(s): E78.00 - Pure hypercholesterolemia, unspecified Category: Medical Plan: Patient has not been able to get her follow up labs done prior to her a ppointment today - states that she will try to get these done SHARA Reinforced low cholesterol diet Continue Atorvastatin 80 mg QD Will recheck her labs and fasting lipids in 4 months for follow up (3) Asthma-COPD overlap syndrome: Comment: Has not been able to perform pulmonary function test, * Spirometry performed in the office today , Shows mild obstructive airway disorder Clinical diagnosis ACO ( Asthma/Copd syndrome ) Remains well controlled with the current regimen . Code(s): J44.9 - Chronic obstructive pulmonary disease, unspecified Category: Medical Plan: Per pulmonary, she has not been able to complete her PFTs previously but office spirometry done last year revealed findings consistent with mild obstructive airway disorder Continue Dulera 200-5 mcg 2 inhalations BID and Levalbuterol inhaler 1 to 2 inhalations Q 6 hours PRN - patient states that her breathing has been stable/well-maintained on her current controller inhaler She is reminded again that quitting smoking completely can help with her respiratory symptoms as well Follow up with pulmonary as scheduled (4) Arthritis of carpometacarpal (CMC) joint of left thumb: Code(s): M18.12 - Unilateral primary osteoarthritis of first carpometacarpal joint, left hand Category: Medical Plan: She was scheduled for orthopedic surgery of her L thumb joint last year but she ended up canceling her surgery Follow-up with orthopedics as scheduled (5) Lumbar degenerative disc disease: Code(s): M51.36 - Other intervertebral disc degeneration, lumbar region Category: Medical Qualifiers: Disc-related pain type: discogenic back pain only Qualified Code(s): M51.360 - Other intervertebral disc degeneration, lumbar region with discogenic back pain only Plan: Lumbar spine MRI done back in 2018 revealed multilevel facet arthritis and disc degeneration Reinforced activity and weight lifting restrictions Continue Cyclobenzaprine 10 mg TID PRN She was following up with [facility] before but states that she has not needed to see them in a while now (6) Hepatitis C: Code(s): B19.20 - Unspecified viral hepatitis C without hepatic coma Category: Medical Qualifiers: Viral hepatitis chronicity: chronic Hepatic coma status: without hepatic coma Qualified Code(s): B18.2 - Chronic viral hepatitis C Plan: S/P treatment with Mavyret 100-40 mg 3 tablets QD Her hepatitis C viral load came back negative /undetectable when most recently checked in 09/2022 Follow up with GI as scheduled (7) Anxiety: Code(s): F41.9 - Anxiety disorder, unspecified Category: Medical Plan: Continue Clonazepam 1 mg BID PRN and Fluoxetine 40 mg QD - Rx refilled (8) Bipolar affective disorder, currently depressed, moderate: Comment: She seems fairly stable at this time, but fluctuations in her mental status make her go back to smoking. Code(s): F31.32 - Bipolar disorder, current episode depressed, moderate Category: Medical Plan: Continue Latuda 60 mg Q HS and Fluoxetine 40 mg QD She has not seen a therapist/counselor nor psychiatry in a while now as she feels very frustrated that her therapists seem to keep changing every couple of months and that she cannot stand and refuses to keep repeating the same story over and over every time someone new is assigned to her States that she finally stopped going to therapy for her own peace of mind and sanity She feels that she has been doing well on her current medications for while now and would like to just continue on the same meds at this time - Rx refilled (9) Smoker: Comment: Has been a long-time smoker. Continues to smoke 1 pack of cigarettes a day. Now down to 15 cigarettes a day. Code(s): F17.200 - Nicotine dependence, unspecified, uncomplicated Category: Social Hx Plan: Patient is counseled again on complete smoking cessation Plan Follow up in 4 months Orders: Orders Lipid Panel 4 Months E78.00 - Pure hypercholesterolemia, unspecified Complete Blood Count Auto Diff 4 Months D64.9 - Anemia, unspecified Comprehensive [place]. Panel Fast 4 Months E78.00 - Pure hypercholesterolemia, unspecified Medications: Changed From clonazepam 1 mg PO BID To clonazepam 1 mg PO BID 30 days PRN 60 tabs 0RF anxiety From aspirin (Adult Low Dose Aspirin) 81 mg PO DAILY 90 tabs 3RF To aspirin (Adult Low Dose Aspirin) 81 mg PO DAILY 90 days 90 tabs 3RF From fluoxetine 40 mg PO DAILY To fluoxetine 40 mg PO DAILY 90 days 90 caps 1RF From lurasidone (Latuda) 60 mg PO BEDTIME To lurasidone (Latuda) 60 mg PO BEDTIME 90 days 90 tabs 1RF Refilled mometasone-formoterol 200-5 mcg/actuation (Dulera) 2 puffs inhalation BID 30 days 13 grams 5RF ASTHMA/COPD
== END 2024-06-05 16:03 | disposition home or self-care (01) ==
LOC: HO.HMCH 15:27
PROVIDERS: PCP Internal Medicine; Visit Provider Internal Medicine
DX: I25.10 Atherosclerotic heart disease of native coronary artery without angina pectoris (principal); J44.9 Chronic obstructive pulmonary disease, unspecified; B18.2 Chronic viral hepatitis C; F31.32 Bipolar disorder, current episode depressed, moderate; E78.00 Pure hypercholesterolemia, unspecified; M18.12 Unilateral primary osteoarthritis of first carpometacarpal joint, left hand; M51.360 Other intervertebral disc degeneration, lumbar region with discogenic back pain only; F41.9 Anxiety disorder, unspecified; F17.200 Nicotine dependence, unspecified, uncomplicated

== ENCOUNTER → 2024-06-05 15:26 | Outpatient (BNVA) | payer MEDICARE, MEDICAID, OTHER, SELFPAY | PROVIDERS: PCP Internal Medicine; Visit Provider Internal Medicine | DX: F41.9 Anxiety disorder, unspecified (principal); J44.9 Chronic obstructive pulmonary disease, unspecified; I25.10 Atherosclerotic heart disease of native coronary artery without angina pectoris; E78.00 Pure hypercholesterolemia, unspecified; M18.12 Unilateral primary osteoarthritis of first carpometacarpal joint, left hand; M51.360 Other intervertebral disc degeneration, lumbar region with discogenic back pain only; B18.2 Chronic viral hepatitis C; F31.32 Bipolar disorder, current episode depressed, moderate; F17.210 Nicotine dependence, cigarettes, uncomplicated; Z79.899 Other long term (current) drug therapy | CPT/HCPCS: 99212 ==

== ENCOUNTER 2024-09-25 16:31 | Outpatient (AMB) | payer MEDICARE, MEDICAID, SELFPAY ==
[2024-09-25 16:39] VITALS: BP 112/62; PULSE 77; O2SAT 97; BMI 23.6
--- NOTE | 2024-09-25 16:39 | A.OFFPC_ITS ---
Vital Signs 09/25/24 16:39 Height 5 ft 3 in Weight 133 lb BMI 23.6 BP 112/62 Blood Pressure Location Lt brachial Position Sitting Pulse 77 Pulse Source Pulse Oximeter Pulse Oximetry (%) 97 Oxygen Delivery Method Room Air Intake Visit Reasons: ED follow up rt hip pain Allergies erythromycin base Allergy (Unknown, Verified 09/25/24 16:43) Nausea and Vomiting, Stomach Upset isosorbide Allergy (Unknown, Verified 09/25/24 16:43) Headaches, stomach upset codeine Adverse Reaction (Mild, Verified 09/25/24 16:43) Itchy Tobacco use date assessed: 09/25/24 Dental Screening Dental Screen Date: 04/09/24 HPI HPI Comments History of Present Illness Details 54 y/o Female patient who presents to [facility] today for EDF. Pt was admitted at [facility] [place] for an evaluation and treatment of Chronic Right Hip Pain. Pt had Xray of Hip that showed OA, and per patient she was told that she needed MRI because she has a Tear . Pt wanted Physical therapy referral that was already placed by PCP. Pt reports that pain not responding to Tramadol, Acetaminophen or Meloxicam. Pt Asking for Tramadol refills. PFSH Medical History Menopausal and postmenopausal disorder CAD (coronary artery disease) NSTEMI (non-ST elevated myocardial infarction) Lumbar degenerative disc disease Asthma-COPD overlap syndrome Asthma Overweight (BMI 25.0-29.9) Pure hypercholesterolemia Anxiety Bipolar affective disorder, currently depressed, moderate Fibromyalgia Obesity (BMI 30-39.9) Smoker Surgical History Hx of colonoscopy History of esophagogastroduodenoscopy (EGD) History of cardiac catheterization Family History Mother Liver cancer Father No problems noted. Other Mental health problem Substance abuse Social History Housing: Apartment Alcohol intake: former Patient Tobacco Use Status: Current everyday Tobacco user Tobacco use type: Cigarette Cigarette Packs Per Day: 1 Cigarettes Per Day: 20 e-Cigarette/Vaping Use: Never Used Second Hand Smoke Exposure: Yes service: No Current occupational status: employed Current occupational exposures/hazards: No Cognitive needs: No Hearing needs: No Vision needs: No Questionnaire PHQ-9 Over the last 2 weeks, how often have you been bothered by any of the following problems? 1. Little interest or pleasure in doing things: not at all 2. Feeling down, depressed, or hopeless: not at all 3. Trouble falling or staying asleep, or sleeping too much: not at all 4. Feeling tired or having little energy: not at all 5. Poor appetite or overeating: not at all 6. Feeling bad about yourself - or that you are a failure or have let yourself or your family down: not at all 7. Trouble concentrating on things, such as reading the newspaper or watching television: not at all 8. Moving or speaking so slowly that other people could have noticed. Or the opposite - being so fidgety or restless that you have been moving around a lot more than usual: not at all 9. Thoughts that you would be better off or of hurting yourself in some way: not at all Total score: 0 Depression Screening Interpretation: Negative Depression Screening Done: Yes Source: Developed by Drs. Sarkis Peterson, Leidy Padilla, Ayo White and colleagues, with an educational flip from [employer]. Thrive Questionnaire Date Thrive assessed: 03/05/24 I am a: Patient What is your living situation today?: I have a steady place to live Within the past 12 months, did the food you bought not last and you didn't have the money to get more?: Never true Within the past 12 months, did you worry whether your food would run out before you got money to buy more?: Never true Do you have trouble paying for medicines?: No Do you have trouble getting transportation to medical appointments?: No Do you have trouble paying your heating and electricity bill?: No Do you have trouble taking care of your child, family member or friend?: No Do you have trouble with day-to-day activities such as bathing, preparing meals, shopping, managing finances, etc.?: No Are you currently unemployed and looking for a job?: No Are you interested in more education?: No Please select the resources that you would like help with: Transportation and None Currently or been in a relationship where the following occur: I choose not to answer THRIVE Score: 0 AUDIT C Alcohol Use Questionnaire (AUDIT-C) 1. How often do you have a drink containing alcohol?: Never Total Score: 0 JUAN-7 AMB Questionnaire JUAN-7 Date JUAN - 7 assessed: 03/05/24 Feeling nervous, anxious, or on edge: 0 = Not at all Not being able to stop or control worryin = Not at all Worrying too much about different things: 0 = Not at all Trouble relaxin = Not at all Being so restless that it is hard to sit still: 0 = Not at all Becoming easily annoyed or irritable: 0 = Not at all Feeling afraid as if something awful might happen: 0 = Not at all Total JUAN-7 score (0-4 normal; 5-9 mild; 10-14 moderate; 15-21 severe): 0 Source: Developed by Drs. Sarkis Peterson, Leidy Padilla, Ayo White and colleagues, with an educational flip from [employer]. Review of Systems Const All systems reviewed & are unremarkable except as noted in HPI and below Physical exam (Primary Care) Vital Signs: Last Vital Signs Pulse 77 09/25/24 16:39 BP 112/62 09/25/24 16:39 Pulse Ox 97 09/25/24 16:39 Oxygen Delivery Method Room Air 09/25/24 16:39 BMI result Body Mass Index 23.6 Tobacco/Smoking Status: Tobacco use Status Tobacco use date assessed 09/25/24 09/25/24 16:47 Patient Tobacco Use Status Current everyday Tobacco 09/25/24 16:43 Tobacco use type Cigarette 09/25/24 16:43 e-Cigarette/Vaping Use Never Used 09/25/24 16:43 PHQ-9: PHQ-9 Score PHQ-9: Total score 0 09/25/24 16:43 Depression Screening Interpretation: Negative Thrive Assessment: Date of Thrive Assessment Date Thrive assessed 03/05/24 09/25/24 16:43 Currently or been in a relationship where the following occur: I choose not to answer Const General: no acute distress and lethargic Nutritional Appearance: overweight Orientation/consciousness: patient oriented x3 and lethargic Neuro General: patient oriented x3, gait normal and moves all extremities Extrem Right lower extremity: hip/thigh Details: tenderness Location: of the hip Location: laterally and anteriorly and normal ROM; no swelling, no ecchymosis and no crepitus Psych Speech and movement: Normal speech and movement present Coding Level of Care Code Est Pt Level 4 (05048) Diagnoses Right hip pain M25.551 Time Spent (min) 20 Assessment & Plan Assessment & Plan (1) Right hip pain: Code(s): M25.551 - Pain in right hip Category: Medical Plan: Advised Patient that she needed to complete Physical therapy before MRI can be ordered. PT referral was placed by PCP already. Continue on Tramadol and Acetaminophen for pain relief. Ice/Hot
== END 2024-09-25 17:09 | disposition home or self-care (01) ==
LOC: HO.HMCH 16:32
PROVIDERS: PCP Internal Medicine; Visit Provider Nurse Practitioner Family
DX: M25.551 Pain in right hip (principal)

== ENCOUNTER → 2024-09-25 16:31 | Outpatient (BNVA) | payer MEDICARE, MEDICAID, SELFPAY | PROVIDERS: PCP Internal Medicine; Visit Provider Nurse Practitioner Family | DX: M25.551 Pain in right hip (principal) | CPT/HCPCS: 99212 ==

== ENCOUNTER 2024-10-20 15:40 | Outpatient (REF) | payer MEDICARE, MEDICAID, SELFPAY ==
--- NOTE | ~2024-10-20 | XR_ITS ---
EXAMINATION: XR HAND, RIGHT CLINICAL INFORMATION: M79.641 - Pain in right hand COMPARISON: August 07, 2023 TECHNIQUE: PA, lateral, and oblique views of the right hand. FINDINGS: The metacarpal bones are intact. The carpal bones are intact with normal alignment. The phalanges are intact with normal alignment. Slight asymmetric joint space narrowing in the distal interphalangeal joints of the second digit and the first carpometacarpal joint. 3 mm well-corticated calcification adjacent to the styloid of the ulna probable prior trauma. No subcutaneous emphysema. No metallic or radiopaque foreign body. No lytic or blastic lesions. XR/XR hand RT min 3V IMPRESSION: Mild degenerative changes/osteoarthritis/osteoarthrosis. No gross change. Electronically signed by: Alo Herring MD 10/20/2024 04:13 PM EDT
--- NOTE | ~2024-10-20 | XR_ITS ---
EXAMINATION: XR HAND, LEFT CLINICAL INFORMATION: M79.642 - Pain in left hand COMPARISON: June 26, 2023 TECHNIQUE: PA, lateral, and oblique views of the left hand. FINDINGS: Degenerative changes of the first carpal metacarpal joint with mild narrowing and sclerosis. There are marginal osteophytes. There are similar degenerative changes in the radial base of the second metacarpal. Small chronic calcification is again noted in the soft tissues distal to the ulnar styloid. No fractures are identified. XR/XR hand LT min 3V IMPRESSION: Moderate osteoarthritis involving the first and second CMC joints. Electronically signed by: Tristan Granados MD 10/20/2024 04:16 PM EDT
== END 2024-10-20 15:41 | disposition home or self-care (01) ==
LOC: HO.HOSX 15:40
PROVIDERS: PCP Internal Medicine; Visit Provider Orthopaedic Surgery
DX: M18.12 Unilateral primary osteoarthritis of first carpometacarpal joint, left hand (principal); M18.11 Unilateral primary osteoarthritis of first carpometacarpal joint, right hand; R20.0 Anesthesia of skin; F31.32 Bipolar disorder, current episode depressed, moderate; M79.7 Fibromyalgia; F17.210 Nicotine dependence, cigarettes, uncomplicated
CPT/HCPCS: 73130; 99212

== ENCOUNTER 2024-10-20 15:40 | Outpatient (AMB) | payer MEDICARE, MEDICAID, SELFPAY ==
--- NOTE | 2024-10-20 15:44 | A.OFFVIS_ITS ---
Vital Signs 10/20/24 15:45 Height 5 ft 3 in Weight 133 lb BMI 23.6 Intake Visit Reasons: OV- LT hand pain Intake Note: Lina 54 yr old right hand dominant female presents today for her follow up visit for her left basal joint O.A pain s/p injection from 08/07/[address] Lowe. States injection helped and would like to repeat injection today. Hx of right hand basal joint O.A. Allergies erythromycin base Allergy (Unknown, Verified 10/20/24 15:58) Nausea and Vomiting, Stomach Upset isosorbide Allergy (Unknown, Verified 10/20/24 15:58) Headaches, stomach upset codeine Adverse Reaction (Mild, Verified 10/20/24 15:58) Itchy HPI HPI OV- LT hand pain: Details: Lina is a 54 year old right hand dominant woman who returns for a follow up of her left basal joint OA. He has a Hx of relief from basal joint injections, the last done on 08/07/23. She presents with complaints of worsening pain in her thumb, worse with pinching & gripping activities. She would like a repeat injection today She also complains of pain at the base of her right thumb. She has known right basal joint OA. She says she has a Hx of multiple falls in the last year and would like new X- rays today. She says her hands are in constant pain all the time , along with pain in her palms extending into her wrists. She also says all of her fingers in both hands go numb all the time . She says she has difficulty doing her bra up or manipulating buttons on her clothes. She says she spoke with a hand surgeon at an outside clinic about a possible denervation surgery to alleviate her thumb pain. She says she cannot take NSAIDs for pain relief due to a heart condition. 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 [facility] Medical History Menopausal and postmenopausal disorder CAD (coronary artery disease) NSTEMI (non-ST elevated myocardial infarction) Lumbar degenerative disc disease Asthma-COPD overlap syndrome Asthma Overweight (BMI 25.0-29.9) Pure hypercholesterolemia Anxiety Bipolar affective disorder, currently depressed, moderate Fibromyalgia Obesity (BMI 30-39.9) Smoker Surgical History Hx of colonoscopy History of esophagogastroduodenoscopy (EGD) History of cardiac catheterization Family History Mother Liver cancer Father No problems noted. Other Mental health problem Substance abuse Social History Housing: Apartment Alcohol intake: former Patient Tobacco Use Status: Current everyday Tobacco user Tobacco use type: Cigarette Cigarette Packs Per Day: 1 Cigarettes Per Day: 20 e-Cigarette/Vaping Use: Never Used Second Hand Smoke Exposure: Yes service: No Current occupational status: employed Current occupational exposures/hazards: No Cognitive needs: No Hearing needs: No Vision needs: No Physical Exam Vital Signs: BMI result Body Mass Index 23.6 Extrem Other: Evaluation of Bilateral Upper Extremity: The patient is alert, oriented, and in no acute distress Neuro: Median, Ulnar, Radial nerves motor and sensory intact and sensation is normal to the tips of all digits No thenar or intrinsic wasting Good APB muscle belly firing and good finger cross Vascular: Cap refill brisk ROM: She can make a weak fist and extend all her digits No locking or catching Most Tender over the basal joints bilaterally + CMC grind + shoulder sign Not particularly tender over the 1st dorsal compartment bilaterally Negative Destinee test bilaterally No tenderness over the MCP joint or A1 ally bilaterally Patient reports pain in the mid and proximal-palm area, and particularly the thenar area over the basal joint, bilaterally Radiographs: 3 views of the bilateral hands, with attention to the thumbs, were reviewed by me today in clinic. They show no fractures or dislocations. There is basal joint arthritis with joint space narrowing, subchondral sclerosis, osteophyte formation, and subluxation. Assessment & Plan Assessment & Plan (1) Arthritis of carpometacarpal (CMC) joint of left thumb: Code(s): M18.12 - Unilateral primary osteoarthritis of first carpometacarpal joint, left hand Category: Medical (2) Arthritis of carpometacarpal (CMC) joint of right thumb: Code(s): M18.11 - Unilateral primary osteoarthritis of first carpometacarpal joint, right hand Category: Medical (3) Bilateral hand numbness: Code(s): R20.0 - Anesthesia of skin Category: Medical (4) Bipolar affective disorder, currently depressed, moderate: Comment: She seems fairly stable at this time, but fluctuations in her mental status make her go back to smoking. Code(s): F31.32 - Bipolar disorder, current episode depressed, moderate Category: Medical (5) Fibromyalgia: Code(s): M79.7 - Fibromyalgia Category: Medical (6) Smoker: Comment: Has been a long-time smoker. Continues to smoke 1 pack of cigarettes a day. Now down to 15 cigarettes a day. Code(s): F17.200 - Nicotine dependence, unspecified, uncomplicated Category: Social Hx Plan Assessment & Plan: 1. Left Basal joint OA, S/P injection Date of injection: 08/07/23, 07/31/22 2. Right basal joint OA I educated her about this condition, and we had a long conversation I discussed operative and non-operative treatment options. including a long discussion concerning surgical intervention, including a basal joint arthroplasty and a brief discussion of a possible denervation procedure, which she discussed with a hand surgeon at an outside clinic.? The patient would like to proceed with a repeat injection. However she says she needs her support person and a ride home after her shot as last time she passed out in the elevator on the way home.? I discussed activity modification, they should limit or avoid any heavy or repetitive pinching or gripping activities She was fitted for a comfort cool brace to wear with daily activity She should work on ROM exercises, and avoid any gripping or strengthening ac tivities I discussed the use of assistive devices for daily activity She will follow up on a Saturday with RE[facility] Brito for BILATERAL basal joint injections 3. Bilateral hand numbness In all digits Symptoms intermittent, but daily worse at night I educated her about carpal & cubital tunnel syndrome I ordered a NCS to assess for peripheral nerve compression She will follow up when completed for review Please note that greater than 50 minutes was spent with this patient going over the history, evaluating the patient and radiographs, formulating possible treatment options, discussing them with the patient, and documenting the visit. Scribed for Korin Lowe MD by James Burnett, medical concierge, on 10/20/24 at 3:50 PM, EST. Orders: Orders NE electromyogram (EMG) Today R20.0 - Anesthesia of skin, R20.2 - Paresthesia of skin XR hand LT min 3V Today M79.642 - Pain in left hand XR hand RT min 3V Today M79.641 - Pain in right hand NE nerve conduction velocity Today R20.0 - Anesthesia of skin, R20.2 - Paresthesia of skin Coding Level of Care Code Est Pt Level 5 (60444) Diagnoses Arthritis of carpometacarpal (CMC) joint of left thumb M18.12 Arthritis of carpometacarpal (CMC) joint of right thumb M18.11 Bilateral hand numbness R20.0 Bipolar affective disorder, currently depressed, moderate F31.32 Fibromyalgia M79.7 Smoker F17.200
[2024-10-20 15:45] VITALS: BMI 23.6
--- OUTSIDE RECORDS SUMMARY | 2024-10-20 16:30 | XMS_ITS | Clinical Summary ---
Author Organization [facility] Address [address] [place] [address] Phone Care Team Providers Care Hog Sawyer Name Role Phone Nathan Lang MD Primary Care Provider [phone] Social History Tobacco Use Types Packs/Day Years Used Date Smoking Tobacco: Never Assessed Education Answer Date Recorded Are you interested in more education? Not on salvador e 06/22/2022 Are you concerned about learning? Not on file 06/22/2022 No 06/22/2022 No 06/22/2022 Digital Access Answer Date Recorded No 07/23/2022 No 07/23/2022 No 07/23/2022 Reliable internet access at home? Not on file 07/23/2022 Device with a working camera? Not on file Comments Unknown Sex and Gender Information Value Date Recorded Sex Assigned at Not on file Legal Sex Female 11:04 AM EDT Gender Identity Not on file Sexual Orientation Not on file Plan of Treatment Health Maintenance Due Date Last Done Comments Adult Td,Tdap Booster 1972 LIPID PANEL 1972 DEPRESSION SCREENING 1984 SMOKING Hx and SMOKELESS TOB ACCO SCREENING 1985 HEPATITIS C SCREENING 1990 HIV ONE-TIME SCREENING (18-6 5 YEARS) 1990 PAP SMEAR 1993 MAMMOGRAM 2012 COLOGUARD 2017 COLONOSCOPY 2017 COLORECTAL CANCER SCREENING 2017 FIT TEST 2017 FOBT 2017 SIGMOIDOSCOPY 2017 VIRTUAL COLONOSCOPY 2017 PNEUMOCOCCAL VACCINES (50+ y ears) (1 of 1 - PCV) 2022 ZOSTER VACCINES (1 of 2) 2022 COVID-19 VACCINE (2 - 2023-2 5 season) 2023 08/04/2020 INFLUENZA VACCINE (#1) 2024 HEPATITIS A VACCINES Aged Out No long er eligible based on patient's age to complete this topic HIB VACCINES Aged Out No longer eligi ble based on patient's age to complete this topic MENINGOCOCCAL VACCINES (ACWY) Aged Out No longer eligible based on patient's age to complete this topic MENINGOCOCCAL VACCINES (B) Aged Out N o longer eligible based on patient's age to complete this topic Medical Devices Not on file Insurance MEDICARE PART A & B [facility] MEDICARE PART [place] & [place]ARE PART A & B [place]ALTH MEDICARE PART A & [place] Care Teams Hog Sawyer Relationship Specialty Start Date End Date Nathan Lang MD [address] [place] [address] [place] [address] PCP - General Internal Medicine 04/07/24 Additional Source Comments The information contained in this document represents components of the legal health record. It is not the complete legal health record.[facility]
== END 2024-10-20 16:44 | disposition home or self-care (01) ==
LOC: HO.HOS 15:41
PROVIDERS: PCP Internal Medicine; Visit Provider Orthopaedic Surgery
DX: M18.0 Bilateral primary osteoarthritis of first carpometacarpal joints (principal); R20.0 Anesthesia of skin; F31.32 Bipolar disorder, current episode depressed, moderate; M79.7 Fibromyalgia; F17.200 Nicotine dependence, unspecified, uncomplicated
CPT/HCPCS: 99215

== ENCOUNTER → 2024-10-20 16:04 | Outpatient (BNV) | payer MEDICARE, MEDICAID, SELFPAY | PROVIDERS: PCP Internal Medicine; Visit Provider Radiology Diagnostic Radiology | DX: M79.641 Pain in right hand (principal) | CPT/HCPCS: 73130 ==

== ENCOUNTER 2024-10-21 10:38 | Outpatient (REF) | payer MEDICARE, MEDICAID, SELFPAY ==
--- OUTSIDE RECORDS SUMMARY | 2024-10-22 11:59 | XMS_ITS | Clinical Summary ---
Author Organization Located [facility] Address [address] [place] [address] Phone Care Team Providers Care Casting Director Name Role Phone Nathan Lang MD Primary Care Provider [phone] Social History Tobacco Use Types Packs/Day Years [...] file Insurance MEDICARE PART A & B [facility] MEDICARE PART A & [place] & [place] MEDICARE PART A & B HEALTH MEDICARE PART A & [place] Care Teams Casting Director Relationship Specialty Start Date End Date Nathan Lang MD [address] [place] [address] [place] [address] PCP - General Internal Medicine 04/07/24 Additional Source Comments The information contained in this document represents components of the legal health record. It is not the complete legal health record.[facility]
== END 2024-10-21 10:39 | disposition home or self-care (01) ==
LOC: HO.HOSX 10:38
PROVIDERS: Visit Provider Orthopaedic Surgery
DX: Z13.89 Encounter for screening for other disorder (principal)

== ENCOUNTER 2024-11-12 06:00 | Outpatient (RCR) | payer MEDICARE, MEDICAID, SELFPAY ==
--- NOTE | 2024-09-29 11:37 | MHC.PT.EP ---
[facility] [place] Office [place] Office [place] Office [address] [phone] F: [phone] F: [phone] F: [phone] F: [phone] Physical Therapy Plan of Care Date of Evaluation: 09/29/24 Date of Surgery: Diagnosis: R hip pain Assessment: Patient is a 54 year old R handed female who presents with s/s consistent with R hip pain. 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 Patient past medical history includes OA and bipolar disorder. Current impairments include pain, posture, ROM, flexibility, balance, strength, activity tolerance and functional mobility. Functional limitations include decreased ability to transfer, walk, stand, negotiate stairs and be active. Patient is motivated with good rehab potential. Skilled PT will address impairments and functional limitations in order to achieve goals. Frequency and Duration: The patient will be seen 2x/week for 5 weeks Short Term Goals: I with hEP - 2 weeks AROM full and pain free - 3 weeks TTP absent - 3 weeks Applications Coordinator Goals: LE strength 4/5 grossly - 5 weeks LEFS 36/80 - 5 weeks Max pain with daily routine 2/10 - 5 weeks Able to walk 20 minutes pain free - 5 weeks Treatment Plan: Modalities to reduce pain, spasms and effusion. Manual therapy to restore motion and function. Therapeutic exercise to improve strength and flexibility. Neuromuscular re-education for posture and balance. Therapeutic activities to return to functional activities of daily living. Electronically signed by: Rubén Tipton PT Please sign and return to therapist. Thank you for your referral.
--- NOTE | 2025-01-12 13:30 | MHC.PT.EP ---
[facility] [place] Office [place] Office [place] Office [address] [phone] F: [phone] F: [phone] F: [phone] F: [phone] Physical Therapy Plan of Care Date of Evaluation: 09/29/24 Date of Surgery: Diagnosis: R hip pain Assessment: Patient is a 54 year old R handed female who presents with s/s consistent with R hip pain. 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 Patient past medical history includes OA and bipolar disorder. Current impairments include pain, posture, ROM, flexibility, balance, strength, activity tolerance and functional mobility. Functional limitations include decreased ability to transfer, walk, stand, negotiate stairs and be active. Patient is motivated with good rehab potential. Skilled PT will address impairments and functional limitations in order to achieve goals. Frequency and Duration: The patient will be seen 2x/week for 5 weeks Short Term Goals: I with hEP - 2 weeks AROM full and pain free - 3 weeks TTP absent - 3 weeks Resistor Coater Goals: LE strength 4/5 grossly - 5 weeks LEFS 36/80 - 5 weeks Max pain with daily routine 2/10 - 5 weeks Able to walk 20 minutes pain free - 5 weeks Treatment Plan: Modalities to reduce pain, spasms and effusion. Manual therapy to restore motion and function. Therapeutic exercise to improve strength and flexibility. Neuromuscular re-education for posture and balance. Therapeutic activities to return to functional activities of daily living. Electronically signed by: Rubén Tipton PT Please sign and return to therapist. Thank you for your referral.
== END 2025-01-12 13:31 | disposition home or self-care (01) ==
LOC: HO.PTCHIC 06:00
PROVIDERS: PCP Internal Medicine; Visit Provider Internal Medicine
DX: M51.360 Other intervertebral disc degeneration, lumbar region with discogenic back pain only (principal)
CPT/HCPCS: 97110; 97162

== ENCOUNTER 2024-11-20 10:52 | Outpatient (REF) | payer MEDICARE, MEDICAID, SELFPAY ==
--- OUTSIDE RECORDS SUMMARY | 2024-11-20 12:36 | XMS_ITS | Clinical Summary ---
Author Organization [facility] Address [address] [place] [address] Phone Care Team Providers Care Fishing Vessel Captain Name Role Phone Nathan Lang MD Primary Care Provider [phone] Social History Tobacco Use Types Packs/Day Years [...] 2022 ZOSTER VACCINES (1 of 2) 2022 INFLUENZA VACCINE (#1) 2024 COVID-19 VACCINE (2 - 2024-2 6 season) 2024 08/04/2020 HEPATITIS A VACCINES Aged Out No long [...] file Insurance MEDICARE PART A & B [facility] MEDICARE PART A & B [place] & B Member Subscriber Plan / Payer (Ef fective 2007-Present) Name:Lina Gann Member ID:[id number] Relation to Subscriber:Self Name:Lina Gann Subscriber ID:[id number] Payer ID:[id number] Group ID:Not on file Type:Medicare Address: [facility] [employer] [facility]ITAL[facility] Experience [facility] [address] [place] [address] [place] PART A & [place] MEDICARE PART A & B HEALTH MEDICARE PART A & [place] Care Teams Fishing Vessel Captain Relationship Specialty Start Date End Date Nathan Lang MD [address] [place] [address] [place] [address] PCP - General Internal Medicine 04/07/24 Additional Source Comments The information contained in this document represents components of the legal health record. It is not the complete legal health record.[facility]
== END 2024-11-20 10:53 | disposition home or self-care (01) ==
LOC: HO.HOSX 10:52
PROVIDERS: Visit Provider Physician Assistant
DX: Z13.89 Encounter for screening for other disorder (principal)

== ENCOUNTER 2024-11-27 09:08 | Outpatient (AMB) | payer MEDICARE, MEDICAID, SELFPAY ==
--- NOTE | 2024-11-27 09:11 | MHC.OFFVIS ---
Vital Signs 11/27/24 09:12 Height 5 ft 3 in Weight 133 lb BMI 23.6 Intake Visit Reasons: INJ- bilateral hand inj Intake Note: Lina is a 54 year old right hand dominant female who presents today for Bilateral Thumb CMC Arthritis follow up and left Basal Joint Injections. She was last seen by Dr. Lowe on 10/20/24 where bilateral basal joint injections were discussed but not administered as patient wishes to have a support person during the visit. Her last left basal joint injection was given 08/07/23. Allergies erythromycin base Allergy (Unknown, Verified 11/27/24 09:23) Nausea and Vomiting, Stomach Upset isosorbide Allergy (Unknown, Verified 11/27/24 09:23) Headaches, stomach upset codeine Adverse Reaction (Mild, Verified 11/27/24 09:23) Itchy HPI HPI INJ- bilateral hand inj: Details: Lina is a 54 year old right hand dominant female who presents today for Bilateral Thumb CMC Arthritis follow up and left Basal Joint Injections. She was last seen by Dr. Lowe on 10/20/24 where bilateral basal joint injections were discussed but not administered as patient wishes to have a support person during the visit. Her last left basal joint injection was given 08/07/23. PFSH Medical History Menopausal and postmenopausal disorder CAD (coronary artery disease) NSTEMI (non-ST elevated myocardial infarction) Lumbar degenerative disc disease Asthma-COPD overlap syndrome Asthma Overweight (BMI 25.0-29.9) Pure hypercholesterolemia Anxiety Bipolar affective disorder, currently depressed, moderate Fibromyalgia Obesity (BMI 30-39.9) Smoker Surgical History Hx of colonoscopy History of esophagogastroduodenoscopy (EGD) History of cardiac catheterization Family History Mother Liver cancer Father No problems noted. Other Mental health problem Substance abuse Social History Housing: Apartment Alcohol intake: former Patient Tobacco Use Status: Current everyday Tobacco user Tobacco use type: Cigarette Cigarette Packs Per Day: 1 Cigarettes Per Day: 20 e-Cigarette/Vaping Use: Never Used Second Hand Smoke Exposure: Yes service: No Current occupational status: employed Current occupational exposures/hazards: No Cognitive needs: No Hearing needs: No Vision needs: No Physical Exam Vital Signs: BMI result Body Mass Index 23.6 Office Procedures Joint Inj/Aspir; Non-Pain Clin Joint Injection/Drain Prep: site was prepped using aseptic technique and injection warnings given Procedure: The patient tolerated the procedure well and there was some relief with the local anesthesia Elbows, Wrist, Hands, Hand injection Medium joint : Left Hand Coding Procedure code (CPT) selection complete Assessment & Plan Assessment & Plan (1) Arthritis of carpometacarpal (CMC) joint of left thumb: Code(s): M18.12 - Unilateral primary osteoarthritis of first carpometacarpal joint, left hand Category: Medical Plan 1. Left basal joint osteoarthritis Patient is educated about this condition Patient is educated about the treatment options available Patient would like to proceed with steroid injection The risks and benefits of a steroid injection including but not limited to risk of damage to blood vessels, nerve, tendon, infection, skin bleaching, persistent or worsening pain, and failure to improve symptoms were discussed with the patient and they wish to proceed with the steroid injection. Once consent was obtained the skin over the dorsum of the left basal joint was sterilely prepped. The joint was then injected with a combination of 40 mg dexamethasone and 1% plain Lidocaine. The patient appears to have tolerated the procedure well and with no complications. He had good early relief before leaving clinic today. He knows that they may not have another steroid injection into this joint for least 4 months. Coding Level of Care Code Est Pt Level 3 (93978) Diagnoses Arthritis of carpometacarpal (CMC) joint of left thumb M18.12 CPT Codes Elbows, Wrist, Hands, - Hand injection Medium joint : Left Hand ([id number])
[2024-11-27 09:12] VITALS: BMI 23.6
--- OUTSIDE RECORDS SUMMARY | 2024-11-27 09:36 | XMS_ITS | Clinical Summary ---
Author Organization [facility] Address [address] [place] [id number] Phone Care Team Providers Care Information Security Analyst Name Role Phone Nathan Lang MD Primary Care Provider [phone] Social History Tobacco Use Types Packs/Day Years [...] file Insurance MEDICARE PART A & B [facility] MEDICARE PART A & B [place] PART A & B HEALTH MEDICARE PART A & [place] Care Teams Information Security Analyst Relationship Specialty Start Date End Date Nathan Lang MD [address] [place] [address] [place] [address] PCP - General Internal Medicine 04/07/24 Additional Source Comments The information contained in this document represents components of the legal health record. It is not the complete legal health record.[facility]
== END 2024-11-27 09:49 | disposition home or self-care (01) ==
LOC: HO.HOS 09:09
PROVIDERS: PCP Internal Medicine
DX: M18.12 Unilateral primary osteoarthritis of first carpometacarpal joint, left hand (principal)
CPT/HCPCS: 20605; 99213

== ENCOUNTER → 2024-11-27 09:08 | Outpatient (BNVA) | payer MEDICARE, MEDICAID, SELFPAY | PROVIDERS: PCP Internal Medicine | DX: M18.12 Unilateral primary osteoarthritis of first carpometacarpal joint, left hand (principal) | CPT/HCPCS: 20600; 20605; 99212; J1100; J2003 ==

== ENCOUNTER 2024-12-04 12:24 | Outpatient (AMB) | payer MEDICARE, MEDICAID, SELFPAY ==
--- NOTE | 2024-12-04 12:39 | MHC.PC.OV ---
Vital Signs 12/04/24 12:40 Height 5 ft 3 in Weight 134 lb 4 oz BMI 23.8 BP 110/62 Blood Pressure Location Lt brachial Position Sitting Pulse 70 Pulse Source Pulse Oximeter Temp 97.3 F Temp Source Temporal Artery Scan Pulse Oximetry (%) 97 Oxygen Delivery Method Room Air Intake Visit Reasons: follow up Intake Note: Patient is here to follow up on CAD, Asthma, LDDD. Stringing Machine Tender Required: No Recyclable Materials Distributor: Not Required per policy Accompanied by: Self / Same As Patient Allergies erythromycin base Allergy (Unknown, Verified 12/04/24 13:02) Nausea and Vomiting, Stomach Upset isosorbide Allergy (Unknown, Verified 12/04/24 13:02) Headaches, stomach upset codeine Adverse Reaction (Mild, Verified 12/04/24 13:02) Itchy Medication List - Last Reconciled 12/04/24 by Nathan Lang MD aspirin (Adult Low Dose Aspirin) 81 mg PO DAILY 90 days atorvastatin 80 mg PO BEDTIME 90 days clonazepam 1 mg PO BID PRN 30 days ezetimibe 10 mg PO DAILY fluoxetine 40 mg PO DAILY 90 days levalbuterol tartrate 45 mcg/actuation 1 puff inhalation Q4-6H PRN 30 days meloxicam 15 mg PO DAILY PRN mometasone-formoterol 200-5 mcg/actuation (Dulera) 2 puffs inhalation BID 30 days nitroglycerin 0.4 mg sublingual Q5M tramadol 50 mg PO Q8H PRN 7 days Tobacco use date assessed: 12/04/24 Dental Screening Dental Screen Date: 04/09/24 HPI follow up HPI Details Patient comes in today for her follow up visit States that she was briefly hospitalized at [facility] early last month (from 10/28/24 to 10/31/24) after she was found to have overdosed on Tylenol and had apparently some facial and head injuries as she was reportedly found by EMS who went to do a wellness check on her to have some blood on her head and signs of ecchymoses/hematoma and with altered mental status and she was subsequently brought to the ER for further evaluation She was apparently kept in the hospital for observation for a few days pending clearance by psychiatry She had some work ups done in the meantime, including some labs, toxicology and a head CT and CTA, both of which came back negative for any acute injuries CT of the cervical, thoracic and lumbar spine as well as abdomen and pelvis done showed only pertinent findings of some right posterior abdominal contusion, small left periorbital hematoma. left frontal scalp contusion and right periorbital contusion Her labs at the time were pertinent for some leucocytosis, elevated AST and elevated acetaminophen level of 158 mg/L and she was treated with N-acetylcysteine for presumptive Tylenol overdose She was supposedly advised that because of her head and facial trauma, she may also have some concussion injuries She reports experiencing some head trauma again a couple of weeks later when she was supposedly in her car and she bent down to get something and when she got back up, ended up hitting the back on her head on something Recalls that she was feeling somewhat dazed and confused back then and sat in her car for a while until she started feeling better She eventually went to urgent care (near [facility]) and had a head CT done again for evaluation, which came back negative for acute injuries States that she is still experiencing on and off headaches and dizziness at this time and would like to know how long does it typically takes to recover from a concussion and what can she do or take at this time to help speed it up for her She denies any chest pains, no increased SOB No nausea/vomiting, no abdominal pain No change in bowel habits noted States that she is now scheduled to see her new psychiatrist for the first time next week but needs her Latuda Rx refilled for now as she has no more Rx left for her mood stabilizer PFSH Medical History Menopausal and postmenopausal disorder CAD (coronary artery disease) NSTEMI (non-ST elevated myocardial infarction) Lumbar degenerative disc disease Asthma-COPD overlap syndrome Asthma Overweight (BMI 25.0-29.9) Pure hypercholesterolemia Anxiety Bipolar affective disorder, currently depressed, moderate Fibromyalgia Obesity (BMI 30-39.9) Smoker Surgical History Hx of colonoscopy History of esophagogastroduodenoscopy (EGD) History of cardiac catheterization Family History Mother Liver cancer Father No problems noted. Other Mental health problem Substance abuse Social History Housing: Apartment Alcohol intake: former Patient Tobacco Use Status: Current everyday Tobacco user Tobacco use type: Cigarette Cigarette Packs Per Day: 1 Cigarettes Per Day: 20 e-Cigarette/Vaping Use: Never Used Second Hand Smoke Exposure: Yes service: No Current occupational status: employed Current occupational exposures/hazards: No Cognitive needs: No Hearing needs: No Vision needs: No Questionnaire Thrive Questionnaire Date Thrive assessed: 09/25/24 I am a: Patient What is your living situation today?: I choose not to answer this question Within the past 12 months, did the food you bought not last and you didn't have the money to get more?: Often true Within the past 12 months, did you worry whether your food would run out before you got money to buy more?: I choose not to answer this question Do you have trouble paying for medicines?: I choose not to answer this question Do you have trouble getting transportation to medical appointments?: I choose not to answer this question Do you have trouble paying your heating and electricity bill?: I choose not to answer this question Do you have trouble taking care of your child, family member or friend?: I choose not to answer this question Do you have trouble with day-to-day activities such as bathing, preparing meals, shopping, managing finances, etc.?: I choose not to answer this question Are you currently unemployed and looking for a job?: I choose not to answer this question Are you interested in more education?: I choose not to answer this question Currently or been in a relationship where the following occur: I choose not to answer THRIVE Score: 1 JUAN-7 AMB Questionnaire JUAN-7 Date JUAN - 7 assessed: 03/05/24 Source: Developed by Drs. Sarkis Peterson, Leidy Padilla, Ayo White and colleagues, with an educational flip from [employer]. Review of Systems Const Denies chills, Reports difficulty sleeping, Denies fatigue, Denies fever(s) and Reports headache(s) (on and off) Eyes Denies blurry vision ENT Denies dysphagia, Reports dizziness (on and off), Denies otalgia, Reports headache(s) (on and off), Denies neck pain, Denies odynophagia and Denies sore throat Card Denies chest pain, Denies palpitations and Denies dyspnea Resp Denies chest congestion, Denies cough and Denies dyspnea GI Denies abdominal pain, Denies constipation, Denies dysphagia, Denies heartburn, Denies diarrhea, Denies nausea, Denies odynophagia and Denies vomiting Denies difficulty voiding, Denies nocturia, Denies dysuria and Denies urinary urgency Musc Reports back pain, Reports arthralgias (involving multiple joints, including both knees) and Denies neck pain Skin/Breast Denies rash Neuro Reports dizziness (on and off) and Reports headache(s) (on and off) Psych Reports anxiety (better controlled on Rx) and Reports depression (controlled on Rx) Endo Denies fatigue and Denies palpitations Physical exam (Primary Care) Vital Signs: Last Vital Signs Temp 97.3 F 12/04/24 12:40 Pulse 70 12/04/24 12:40 BP 110/62 12/04/24 12:40 Pulse Ox 97 12/04/24 12:40 Oxygen Delivery Method Room Air 12/04/24 12:40 BMI result Body Mass Index 23.8 Tobacco/Smoking Status: Tobacco use Status Tobacco use date assessed 12/04/24 12/04/24 12:44 Patient Tobacco Use Status Current everyday Tobacco 12/04/24 12:44 Tobacco use type Cigarette 12/04/24 12:44 e-Cigarette/Vaping Use Never Used 12/04/24 12:44 Thrive Assessment: Date of Thrive Assessment Date Thrive assessed 09/25/24 12/04/24 12:44 Currently or been in a relationship where the following occur: I choose not to answer Const General: no acute distress and alert Orientation/consciousness: patient oriented x3 [facility] Throat: Yes posterior oropharynx normal and Yes tonsils normal (no TP congestion) Neck Neck: No lymphadenopathy and Yes tender (over the cervical spine) Thyroid: Thyroid normal Resp Auscultation: clear to auscultation bilaterally, no rales and no wheezes Cardio Rate: regular rate Rhythm: regular rhythm Heart sounds: no murmurs GI Palpation (GI): Soft to palpation and nontender Auscultation: normal bowel sounds General: Yes no CVA tenderness Back/Spine/Pelvis Back: no CVA tenderness Cervical Spine: Cervical spine tenderness (mild) Thoracic/Lumbar Spine: lumbar spinal tenderness Skin Rashes: no rashes Neuro General: patient oriented x3, moves all extremities and no focal motor deficits Cognition (Neuro): normal cognition Gait exam (Neuro): Normal gait present Extrem General: Yes no clubbing, cyanosis or edema Right upper extremity: shoulder/upper arm Details: tenderness Location: of the A-C joint and abnormal ROM Details: held in an abnormal fashion and pain with active ROM Left upper extremity: hand Details: tenderness Location: of the thumb Location: involving the entire digit Coding Level of Care Code Est Pt Level 4 (91194) Diagnoses Concussion with unknown loss of consciousness status, sequela S06.0XAS Encounter type: sequela Loss of consciousness presence/duration: unknown LOC status Atherosclerotic cardiovascular disease I25.10 Pure hypercholesterolemia E78.00 Asthma-COPD overlap syndrome J44.9 Arthritis of carpometacarpal (CMC) joint of left thumb M18.12 Degeneration of intervertebral disc of lumbar region with discogenic back pain M51.360 Disc-related pain type: discogenic back pain only Chronic hepatitis C without hepatic coma B18.2 Hepatic coma status: without hepatic coma Viral hepatitis chronicity: chronic Anxiety F41.9 Bipolar affective disorder, currently depressed, moderate F31.32 Smoker F17.200 Assessment & Plan Assessment & Plan (1) Concussion: Code(s): S06.0XAA - Concussion with loss of consciousness status unknown, initial encounter Category: Medical Qualifiers: Encounter type: sequela Loss of consciousness presence/duration: unknown LOC status Qualified Code(s): S06.0XAS - Concussion with loss of consciousness status unknown, sequela Plan: Patient reportedly suffered/sustained a concussion injury from apparent head/face trauma last month (see HPI) wherein she was found by EMS at her home with blood and hematoma/contusions on her head and face Patient reportedly does not remember much about what happened back then She reportedly suffered additional head trauma a couple of weeks later when she was in her car (see HPI for details) She is now wondering if taking some OTC 'brain supplements can help her recover from her concussion faster as she states that it is affecting her work and her life Would also like to know how fast one can typically recover from a concussion completely Have advised patient that as everyone is different, there is really no definite time frame as to how quickly one recovers from concussion and that it can take anywhere from a month to up to a year for complete recovery Have advised her that the best she can do to help her recovery is to make sure she gets plenty of rest and sleep, especially at night and not to overexert herself physically and mentally until she is completely recovered States that she has trouble sleeping through the night and is now requesting for Rx for Melatonin to take - Rx sent She declined all other prescription sleep aid as she states that she is afraid of the potential side effects and that she's already had bad experiences with a few of them in the past (2) Atherosclerotic cardiovascular disease: Comment: S/P stenting (MUKESH) of LAD in April 2012 Code(s): I25.10 - Atherosclerotic heart disease of [place] coronary artery without angina pectoris Category: Medical Plan: Patient needs to be on lifelong antiplatelet Tx with low dose Aspirin due to her Hx of CAD and cardiac stenting (MUKESH to her LAD) in 2012 and has been advised of this a few times by both cardiology and myself - the importance of antiplatelet therapy in helping prevent stent thrombosis and ischemic events has been stressed to her multiple times Continue NTG 0.4 mg SL PRN for chest pains - states that she has not had to take sublingual NTG in a while now She underwent repeat cardiac catheterization last year in 08/2023, which revealed patent LAD stent, with only mild irregularities in the circumflex and right coronary artery She has also been advised to quit smoking completely and to stay on her cholesterol medication (Atorvastatin 80 mg QD) Follow up with cardiology as scheduled (3) Pure hypercholesterolemia: Code(s): E78.00 - Pure hypercholesterolemia, unspecified Category: Medical Plan: Patient again has not been able to get her follow up labs done prior to her appointment today Reinforced low cholesterol diet Continue Atorvastatin 80 mg QD Will recheck her labs and fasting lipids in 4 months for follow up (4) Asthma-COPD overlap syndrome: Comment: Has not been able to perform pulmonary function test, * Spirometry performed in the office today , Shows mild obstructive airway disorder Clinical diagnosis ACO ( Asthma/Copd syndrome ) Remains well controlled with the current regimen . Code(s): J44.9 - Chronic obstructive pulmonary disease, unspecified Category: Medical Plan: Per pulmonary, she has not been able to complete her PFTs previously but office spirometry done last year revealed findings consistent with mild obstructive airway disorder Continue Dulera 200-5 mcg 2 inhalations BID and Levalbuterol inhaler 1 to 2 inhalations Q 6 hours PRN - patient states that her breathing has been stable/well-maintained on her current controller inhaler She is reminded again that quitting smoking completely can help with her respiratory symptoms as well Follow up with pulmonary as scheduled (5) Arthritis of carpometacarpal (CMC) joint of left thumb: Code(s): M18.12 - Unilateral primary osteoarthritis of first carpometacarpal joint, left hand Category: Medical Plan: She was scheduled for orthopedic surgery of her L thumb joint last year but she ended up canceling her surgery States that she's had injections into her thumb joint a few monts ago and this appears to have resulted in significant improvement of her symptoms Follow-up with orthopedics as scheduled (6) Lumbar degenerative disc disease: Code(s): M51.36 - Other intervertebral disc degeneration, lumbar region Category: Medical Qualifiers: Disc-related pain type: discogenic back pain only Qualified Code(s): M51.360 - Other intervertebral disc degeneration, lumbar region with discogenic back pain only Plan: Lumbar spine MRI done back in 2018 revealed multilevel facet arthritis and disc degeneration Reinforced activity and weight lifting restrictions Continue Cyclobenzaprine 10 mg TID PRN She was following up with [facility] before but states that she has not needed to see them in a while now (7) Hepatitis C: Code(s): B19.20 - Unspecified viral hepatitis C without hepatic coma Category: Medical Qualifiers: Hepatic coma status: without hepatic coma Viral hepatitis chronicity: chronic Qualified Code(s): B18.2 - Chronic viral hepatitis C Plan: S/P treatment with Mavyret 100-40 mg 3 tablets QD Her hepatitis C viral load came back negative /undetectable when most recently checked in 09/2022 Follow up with GI as scheduled (8) Anxiety: Code(s): F41.9 - Anxiety disorder, unspecified Category: Medical Plan: Continue Clonazepam 1 mg BID PRN and Fluoxetine 40 mg QD (9) Bipolar affective disorder, currently depressed, moderate: Comment: She seems fairly stable at this time, but fluctuations in her mental status make her go back to smoking. Code(s): F31.32 - Bipolar disorder, current episode depressed, moderate Category: Medical Plan: Continue Latuda 60 mg Q HS (Rx refilled) and Fluoxetine 40 mg QD States that she is finally scheduled to see a psychiatrist for her first visit next week - she is reminded that I will let them take over her psychiatry Rx as soon as they can (10) Smoker: Comment: Has been a long-time smoker. Continues to smoke 1 pack of cigarettes a day. Now down to 15 cigarettes a day. Code(s): F17.200 - Nicotine dependence, unspecified, uncomplicated Category: Social Hx Plan: Patient is counseled again on complete smoking cessation Plan Follow up in 3 months Orders: Orders Complete Blood Count Auto Diff 3 Months D64.9 - Anemia, unspecified Vitamin D 25-OH Total 3 Months E55.9 - Vitamin D deficiency, unspecified Comprehensive [place]. Panel Fast 3 Months E78.00 - Pure hypercholesterolemia, unspecified Lipid Panel 3 Months E78.00 - Pure hypercholesterolemia, unspecified UA CC w/rflx Micro + Cult 3 Months R30.0 - Dysuria TSH reflex Free T4 3 Months E78.00 - Pure hypercholesterolemia, unspecified Medications: New melatonin 10 mg PO BEDTIME PRN 30 tabs 3RF sleep 30 days Changed From lurasidone 60 mg PO BEDTIME 90 days 90 tabs 1RF To lurasidone (Latuda) 60 mg PO BEDTIME 30 tabs 1RF 30 days
[2024-12-04 12:40] VITALS: BP 110/62; PULSE 70; TEMP 36.3; O2SAT 97; BMI 23.8
== END 2024-12-04 13:15 | disposition home or self-care (01) ==
LOC: HO.HMCH 12:26
PROVIDERS: PCP Internal Medicine; Visit Provider Internal Medicine
DX: S06.0XAS Concussion with loss of consciousness status unknown, sequela (principal); I25.10 Atherosclerotic heart disease of native coronary artery without angina pectoris; E78.00 Pure hypercholesterolemia, unspecified; J44.9 Chronic obstructive pulmonary disease, unspecified; M18.12 Unilateral primary osteoarthritis of first carpometacarpal joint, left hand; M51.360 Other intervertebral disc degeneration, lumbar region with discogenic back pain only; B18.2 Chronic viral hepatitis C; F41.9 Anxiety disorder, unspecified; F31.32 Bipolar disorder, current episode depressed, moderate; F17.200 Nicotine dependence, unspecified, uncomplicated

== ENCOUNTER → 2024-12-04 12:24 | Outpatient (BNVA) | payer MEDICARE, MEDICAID, SELFPAY | PROVIDERS: PCP Internal Medicine; Visit Provider Internal Medicine | DX: I25.10 Atherosclerotic heart disease of native coronary artery without angina pectoris (principal); E78.00 Pure hypercholesterolemia, unspecified; J44.9 Chronic obstructive pulmonary disease, unspecified; M18.12 Unilateral primary osteoarthritis of first carpometacarpal joint, left hand; M51.360 Other intervertebral disc degeneration, lumbar region with discogenic back pain only; B18.2 Chronic viral hepatitis C; F41.9 Anxiety disorder, unspecified; F31.32 Bipolar disorder, current episode depressed, moderate; F17.210 Nicotine dependence, cigarettes, uncomplicated; S06.0XAS Concussion with loss of consciousness status unknown, sequela; X58.XXXS Exposure to other specified factors, sequela | CPT/HCPCS: 99212 ==

== ENCOUNTER 2025-02-12 08:36 | Outpatient (REF) | payer MEDICARE, MEDICAID, SELFPAY ==
--- NOTE | ~2025-02-12 | XR_ITS ---
EXAMINATION: XR HAND 3 OR MORE VIEWS LEFT HISTORY: M79.642 - Pain in left hand COMPARISON: Comparison is made with the prior examination dated 10/20/2024. FINDINGS: Three views of the left hand are submitted. Osseous mineralization is normal. There is no fracture or dislocation. Again seen is moderate osteoarthritis of the 1st carpometacarpal joint as well as degenerative changes of the 2nd MCP joint radially. The remaining joint spaces are maintained. The soft tissues are unremarkable. XR/XR hand LT min 3V IMPRESSION: Degenerative changes of the 1st and 2nd carpometacarpal joints. Electronically signed by: Sarkis Potter MD 02/12/2025 09:33 AM EST
--- NOTE | ~2025-02-12 | XR_ITS ---
EXAMINATION: XR HAND, RIGHT CLINICAL INFORMATION: M79.641 - Pain in right hand COMPARISON: 10/20/2024 TECHNIQUE: PA, lateral, and oblique views of the right hand. FINDINGS: There is minimal asymmetric narrowing and marginal osteophyte involving the second fifth DIP joints and first CMC joint. There is mild degenerative sclerosis and minimal cystic change in the head of the first metacarpal. There is a small ossification at the tip of the ulnar styloid. There is no fracture line. XR/XR hand RT min 3V IMPRESSION: Stable right hand x-ray with mild degenerative changes consistent with osteoarthritis. Electronically signed by: Tristan Granados MD 02/12/2025 10:16 AM JESSICA
--- NOTE | ~2025-02-12 | XR_ITS ---
EXAMINATION: XR WRIST, RIGHT CLINICAL INFORMATION: M25.531 - Pain in right wrist COMPARISON: None available. TECHNIQUE: Scaphoid view of the right wrist. FINDINGS: No fracture line is visualized. There is no joint diastases. There is a small ossification the tip of ulnar styloid. XR/XR wrist RT 2V IMPRESSION: No acute bony abnormality. Limited x-ray. Electronically signed by: Tristan Granados MD 02/12/2025 10:32 AM JESSICA
== END 2025-02-12 08:37 | disposition home or self-care (01) ==
LOC: HO.HOSX 08:36
DX: M79.642 Pain in left hand (principal); M79.641 Pain in right hand; M25.531 Pain in right wrist
CPT/HCPCS: 73100; 73130

== ENCOUNTER 2025-02-12 09:18 | Outpatient (AMB) | payer MEDICARE, MEDICAID, SELFPAY ==
[2025-02-12 09:40] VITALS: BMI 23.7
--- NOTE | 2025-02-12 09:40 | MHC.OFFVIS ---
Vital Signs 02/12/25 09:40 Height 5 ft 3 in Weight 134 lb BMI 23.7 Intake Visit Reasons: New Prob - Left Hand Injury 01/27/25 Intake Note: Lina is a 54 year old right hand dominant female who presents today for a New Problem Visit with complaints of Left Hand Pain s/p Injury. Patient reports that on 01/27/25 her TV fell and when trying to catch it, the TV crushed her hand. Since this incident she has had significant pain, primarily on the dorsal aspect of her left thumb. She describes this pain as a burning sensation. She has been taking Tramadol and Meloxicam with minimal relief. Patient expresses she is interested on a cortisone injection. She also reports right hand pain as part of the same injury. Allergies erythromycin base Allergy (Unknown, Verified 02/12/25 09:41) Nausea and Vomiting, Stomach Upset isosorbide Allergy (Unknown, Verified 02/12/25 09:41) Headaches, stomach upset codeine Adverse Reaction (Mild, Verified 02/12/25 09:41) Itchy HPI HPI New Prob - Left Hand Injury 01/27/25: Details: Lina is a 54 year old right hand dominant female who presents today for a New Problem Visit with complaints of Left Hand Pain s/p Injury. Patient reports that on 01/27/25 her TV fell and when trying to catch it, the TV crushed her hand. Since this incident she has had significant pain, primarily on the dorsal aspect of her left thumb. She describes this pain as a burning sensation. She has been taking Tramadol and Meloxicam with minimal relief. Patient expresses she is interested on a cortisone injection. She also reports right hand pain as part of the same injury. Patient reports that the pain in her left hand is mostly localized to the ulnar styloid. PFSH Medical History Menopausal and postmenopausal disorder CAD (coronary artery disease) NSTEMI (non-ST elevated myocardial infarction) Lumbar degenerative disc disease Asthma-COPD overlap syndrome Asthma Overweight (BMI 25.0-29.9) Pure hypercholesterolemia Anxiety Bipolar affective disorder, currently depressed, moderate Fibromyalgia Obesity (BMI 30-39.9) Smoker Surgical History Hx of colonoscopy History of esophagogastroduodenoscopy (EGD) History of cardiac catheterization Family History Mother Liver cancer Father No problems noted. Other Mental health problem Substance abuse Social History Housing: Apartment Alcohol intake: former Patient Tobacco Use Status: Current everyday Tobacco user Tobacco use type: Cigarette Cigarette Packs Per Day: 1 Cigarettes Per Day: 20 e-Cigarette/Vaping Use: Never Used Second Hand Smoke Exposure: Yes service: No Current occupational status: employed Current occupational exposures/hazards: No Cognitive needs: No Hearing needs: No Vision needs: No Physical Exam Vital Signs: BMI result Body Mass Index 23.7 Extrem Other: Patient is alert, oriented, and in no acute distress. Neuro: Normal sensation of the tips of all digits of the bilateral hand at this time Vascular: Cap refill brisk Pain: Tenderness to palpation of left anatomical snuffbox and scaphoid tubercle Pain with range of motion of the left hand Minimal tenderness to right ulnar styloid ROM: Patient is able to make a closed fist and extend all digits of bilateral hands fully Skin: No lacerations or abrasions. General: No ecchymosis, erythema, or evidence of infection. Psych: Appears grossly normal Affect normal Attitude cooperative Office Procedures Casting/Splints 43510-Rgfn/Wrist Cast Application Procedure code (CPT) selection complete Results Reviewed Results Reviewed: X-rays obtained in the office today and independently reviewed by me, Daryl Armijo PA-C, demonstrate area of lucency on the left scaphoid concerning for scaphoid tubercle fracture. Assessment & Plan Assessment & Plan (1) Tenderness of anatomical snuffbox: Code(s): M79.643 - Pain in unspecified hand Category: Medical (2) Left hand pain: Code(s): M79.642 - Pain in left hand Category: Medical Plan 1. Tenderness of the left anatomical snuffbox of left wrist Date of injury 01/27/2025 Patient is educated about this condition Patient is educated about the typical treatment course At this time, due to questionable area of lucency and tenderness of anatomical snuffbox, patient is placed into a thumb spica cast Patient is educated on proper cast care and precautions 2 lb weight limit hand At next visit, we will remove the cast, get repeat x-rays, and re-evaluate tenderness, and if tenderness is still present and there is no obvious x-ray visible, we will order an MRI of the left wrist Patient understands this and is amenable to this plan Follow-up in 2 weeks with repeat x-rays, sooner with any acute concerns Orders: Orders XR hand LT min 3V Today M79.642 - Pain in left hand XR hand RT min 3V Today M79.641 - Pain in right hand XR wrist RT 2V Today M25.531 - Pain in right wrist Coding Level of Care Code Est Pt Level 3 (57548) Diagnoses Tenderness of anatomical snuffbox M79.643 Left hand pain M79.642 CPT Codes Casting - CPT: 04018-Isrp/Wrist Cast Application ([id number])
--- OUTSIDE RECORDS SUMMARY | 2025-02-12 09:53 | XMS_ITS | Clinical Summary ---
Author Organization [facility] Address [address] [place] [id number] Phone Care Team Providers Care Real Estate Firm Manager Name Role Phone Nathan Lang MD Primary Care Provider [phone] Social History Tobacco Use Types Packs/Day Years [...] (2 - 2024-2 6 season) 2024 08/04/2020 RSV VACCINE (1 - 1-dose 75+ series) 08/08/2047 HEPATITIS A VACCINES Aged Out No long [...] file Insurance MEDICARE PART A & B [facility] MEDICARE PART A & [place] MEDICARE PART A & [place] Care Teams Real Estate Firm Manager Relationship Specialty Start Date End Date Nathan Lang MD [address] [place] [address] [place] [id number] PCP - General Internal Medicine 04/07/24 Additional Source Comments The information contained in this document represents components of the legal health record. It is not the complete legal health record.[facility]
== END 2025-02-12 10:37 | disposition home or self-care (01) ==
LOC: HO.HOS 09:19
PROVIDERS: PCP Internal Medicine
DX: M79.642 Pain in left hand (principal)
CPT/HCPCS: 29085; 99213

== ENCOUNTER → 2025-02-12 09:21 | Outpatient (BNV) | payer MEDICARE, MEDICAID, SELFPAY | PROVIDERS: Visit Provider Radiology Diagnostic Radiology | DX: M79.641 Pain in right hand (principal); M25.531 Pain in right wrist | CPT/HCPCS: 73100; 73130 ==